=== PATIENT | female | born 1945 | race Caucasian/White ===

== ENCOUNTER 2023-01-04 19:45 | Inpatient (IN) | payer MEDICARE, OTHER, SELFPAY ==
[2023-01-04 19:45] VITALS: BP 171/67; PULSE 73; RESP 16; TEMP 36.6; O2SAT 97; BMI 21.9
--- NOTE | 2023-01-04 19:56 | XRR_ITS ---
PROCEDURE INFORMATION: Exam: XR Chest Exam date and time: 01/04/2023 8:05 PM Age: 77 years old Clinical indication: Injury or trauma; Fall; Blunt trauma (contusions or hematomas); Additional info: Syncope TECHNIQUE: Imaging protocol: Radiologic exam of the chest. Views: 1 view. COMPARISON: No relevant prior studies available. FINDINGS: Lungs: There is linear scarring or atelectasis at the left lung base. The lungs are otherwise clear. Pleural spaces: Unremarkable. No pleural effusion. No pneumothorax. Heart/Mediastinum: Unremarkable. No cardiomegaly. Bones/joints: Unremarkable. XR/XR chest 1V portable [id number] IMPRESSION: No acute injury.
--- NOTE | 2023-01-04 19:56 | CTR_ITS ---
PROCEDURE INFORMATION: Exam: CT Cervical Spine Without Contrast Exam date and time: 01/04/2023 8:14 PM Age: 77 years old Clinical indication: Injury or trauma; Fall; Blunt trauma; Additional info: Fall head inj TECHNIQUE: Imaging protocol: Computed tomography of the cervical spine without contrast. Radiation optimization: All CT scans at this facility use at least one of these dose optimization techniques: automated exposure control; mA and/or kV adjustment per patient size (includes targeted exams where dose is matched to clinical indication); or iterative reconstruction. REPORTING DATA: Count of CT and Cardiac NM exams in prior 12 months: This patient has received [address] and 0 known cardiac nuclear medicine studies in the 12 months prior to the current study. COMPARISON: CR (CHEST, ) 01/04/2023 8:05 PM RADIATION DOSE METRICS: Total DLP (mGy-cm): 175.3 FINDINGS: Bones/joints: No acute fracture. Normal alignment. There are mild degenerative changes present. There is a central disc bulge at C4-C5 which contacts the ventral cord and causes mild spinal canal narrowing. Lungs: Lung apices are normal. Soft tissues: Unremarkable. CT/CT cervical spin wo con* [id number] IMPRESSION: No acute injury.
--- NOTE | 2023-01-04 19:57 | CTR_ITS ---
PROCEDURE INFORMATION: Exam: CT Head Without Contrast Exam date and time: 01/04/2023 8:14 PM Age: 77 years old Clinical indication: Injury or trauma; Fall; Blunt trauma (contusions or hematomas); Additional info: Head injury TECHNIQUE: Imaging protocol: Computed tomography of the head without contrast. Radiation optimization: All CT scans at this facility use at least one of these dose optimization techniques: automated exposure control; mA and/or kV adjustment per patient size (includes targeted exams where dose is matched to clinical indication); or iterative reconstruction. REPORTING DATA: Count of CT and Cardiac NM exams in prior 12 months: This patient has received [address] and 0 known cardiac nuclear medicine studies in the 12 months prior to the current study. COMPARISON: No relevant prior studies available. RADIATION DOSE METRICS: Total DLP (mGy-cm): 1164.9 FINDINGS: Brain: Age appropriate atrophy and small vessel ischemic change. No evidence of intracranial hemorrhage, mass effect, midline shift or extra-axial fluid collections. Midline structures are normal. Hawk-white matter differentiation is normal. Cerebral ventricles: No ventriculomegaly. Paranasal sinuses: Visualized sinuses are unremarkable. No fluid levels. Mastoid air cells: Visualized mastoid air cells are well aerated. Bones/joints: Unremarkable. No acute fracture. Soft tissues: There is right frontal scalp swelling. Vasculature: Carotid atherosclerotic calcification. CT/CT head wo con* [id number] IMPRESSION: No acute intracranial injury.
[2023-01-04 19:58] VITALS: BP 171/67; PULSE 68; O2SAT 98
--- NOTE | 2023-01-04 20:07 | ECG_ITS ---
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 Measurements Intervals [place] Rate: 73 P: 74 ME: 187 QRS: -31 QRSD: 92 T: -23 QT: 407 QTc: 450 Interpretive Statements SINUS RHYTHM LEFT AXIS DEVIATION [QRS AXIS < -30] LEFT VENTRICULAR HYPERTROPHY AND ST-T CHANGE [VOLTAGE CRITERIA PLUS ST/T ABNORMALITY] No previous ECG available for comparison Electronically Signed On 01-04-2023 22:35:20 CDT by David Sheppard M.D. [email or web address]el[email or web address].[employer]/store/[id number]
[2023-01-04 20:14] LABS: Basophils % 0.4 %; Eosinophils # 0.2 10^3/uL (0.0-0.8); Eosinophils % 1.7 %; Hemoglobin 15.5 g/dL (11.5-15.3); Lymphocytes # 3.2 10^3/uL (0.8-4.8); Lymphocytes % 35.9 %; Mean Corpuscular Hemoglobin 31.2 pg (28.0-34.0); Mean Corpuscular Volume 94.6 fl (81-99); Mean Platelet Volume 12.7 fL (7.4-10.4); Monocytes # 0.6 10^3/uL (0.2-0.9); Monocytes % 6.9 %; Neutrophils # 4.85 10^3/uL (1.8-7.7); Neutrophils % 54.3 %; Nucleated Red Blood Cells % 0 %; Platelet Count 179 10^3/cmm (130-400); Red Blood Count 4.97 10^6/uL (4.1-5.3); Red Cell Distribution Width 12.7 % (12.1-15.1); White Blood Count 8.9 10^3/uL (4.0-10.0)
--- NOTE | 2023-01-04 20:14 | ED_ITS ---
HPI - Fall General: Chief Complaint: Fall Stated Complaint: fall Time Seen by Provider: 01/04/23 19:45 Source: patient History of Present Illness: 77-year-old female evidently with a history of seizure disorder. She has not had a seizure in 9 years though. 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 The fall was not seen, but family member was right there and heard her hit the ground. She found her face down. Evidently she was unresponsive for around 5 minutes but breathing. She lost control of her bladder during the episode. No tonic-clonic movement was noted. She was mildly confused upon awakening, and is now back to baseline essentially. She is not complaining of significant pain no other injury MD complaint: fall Onset (ago): minute(s) Fall from: standing Fall witnessed: no Place fall occurred: other Loss of consciousness: Yes Length of LOC: minutes(s) (5) Prolonged down time: no Symptoms prior to fall: none Context: other Location of injury: head Associated symptoms-after fall: Reports headache(s) (Mild); Denies abdominal pain, chest pain, confusion, difficulty walking, neck pain, numbness, short of breath, vertigo or weakness Review of Systems Const: Denies: fever(s) Eyes: Denies: change in vision ENMT: Denies: throat pain or sinus pain Card: Denies: chest pain Resp: Denies: dyspnea GI: Denies: abdominal pain Musc: Denies: neck pain Neuro: Reports: headache(s) (Mild); Denies: difficulty walking, vertigo or confusion PFS ED PFSH: Medical History Family history of familial adenomatous polyposis 2 para 2 History of epilepsy history of grand mal seizures, last ~2014, not on chronic medication Hypertension Surgical History History of colectomy subtotal colectomy with ileorectal anastomosis performed by Dr Chaney in 1992 due to family history of familial adenomatous polyposis Family History Father CAD (coronary artery disease) age 50 from heart attack Other Familial adenomatous polyposis Social History (Reviewed 01/05/23 @ 16:39 by Katelynn Pruett Smoking and tobacco status: never smoked Alcohol intake: never Household members: family Physical Exam Const: COMMON NORMALS: no acute distress GENERAL APPEARANCE: cooperative and frail appearing (Mildly) HENMT: COMMON NORMALS: normocephalic HEAD & SCALP: normocephalic FACE & SINUS: abrasion (Skin avulsion to forehead. Abrasions to nose.) NOSE: Abnormal external nose present nasal ecchymosis and nasal erythema Eye: COMMON NORMALS: Equal, round and reactive pupils present and EOMs intact bilaterally PUPIL: Yes Equal, round and reactive pupils present Neck/C-Spine: GENERAL: Yes trachea midline Chest: CHEST: Yes Symmetrical chest wall rise Resp: COMMON NORMALS: normal respiratory effort, No use of accessory muscles and clear to auscultation bilaterally AUSCULTATION: clear to auscultation bilaterally Cardio: COMMON NORMALS: regular rate and regular rhythm RATE: regular rate RHYTHM: regular rhythm GI: COMMON NORMALS: Normal to inspection, nondistended, normoactive bowel sounds present, Soft to palpation and non-tender PALPATION: Yes Soft to palpation Back/Pelvis: THORACIC SPINE/UPPER BACK: No thoracic spinal tenderness LUMBAR SPINE/LOWER BACK: No lumbar spinal tenderness Extremity: NARRATIVE EXTREMITY EXAM: Atraumatic Neuro: MICHELINE COMA SCALE: document GCS findings Micheline coma scale eye opening: Spontaneous [place] coma scale verbal response: Orientated [place] coma scale motor response: Obey commands [place] coma scale total score: 15 SENSORY EXAM: Yes extremities (Intact) Course Vital Signs: Vital signs: Vital Signs Temperature 97.6 F 01/06/23 01:04 Pulse Rate 53 L 01/06/23 08:00 Respiratory Rate 22 H 01/06/23 08:00 Blood Pressure 146/89 01/06/23 08:00 Pulse Oximetry 99 01/06/23 08:00 Oxygen Delivery Me thod 01/06/23 08:00 MDM - Fall Medical Decision Making 77 year old female with a history of syncope today. She does have a history of seizure disorder, but no seizure activity was witnessed. Her vitals have been stable. she's at her baseline mental status. CBC not remarkable. BMP not remarkable. Liver enzymes are normal. EKG shows a sinus rhythm without acute St. change. However, her delta troponin is 46 at 2 hours, which is significant. Differential includes ischemia versus arrhythmia causing the troponin rise. She'll be observed. Had CT is negative. Chest X-ray is also negative for acute problems. Lab Data 01/04/23 19:30 01/04/23 19:30 Radiology Impressions Cervical Spine CT 01/04/23 19:56 IMPRESSION: No acute injury. Chest X-Ray 01/04/23 19:56 IMPRESSION: No acute injury. Head CT 01/04/23 19:57 IMPRESSION: No acute intracranial injury. Knee X-Ray 01/05/23 08:07 IMPRESSION: 1. Chondrocalcinosis of the medial and lateral menisci. 2. No fracture, joint effusion or other significant finding. Laboratory Results WBC 8.9 10^3/uL (4.0-10.0) 01/04/23 19:30 RBC 4.97 10^6/uL (4.1-5.3) 01/04/23 19:30 Hgb 15.5 g/dL (11.5-15.3) H 01/04/23 19:30 Hct 47.0 % (37.0-47.0) 01/04/23 19:30 MCV 94.6 fl (81-99) 01/04/23 19:30 MCH 31.2 pg (28.0-34.0) 01/04/23 19:30 MCHC 33.0 g/dL (30.0-36.0) 01/04/23 19:30 RDW 12.7 % (12.1-15.1) 01/04/23 19:30 Plt Count 179 10^3/cmm (130-400) 01/04/23 19:30 MPV 12.7 fL (7.4-10.4) H 01/04/23 19:30 Neut % (Auto) 54.3 % 01/04/23 19:30 Lymph % (Auto) 35.9 % 01/04/23 19:30 [place] % (Auto) 6.9 % 01/04/23 19:30 Eos % (Auto) 1.7 % 01/04/23 19:30 Baso % (Auto) 0.4 % 01/04/23 19:30 Neut # (Auto) 4.85 10^3/uL (1.8-7.7) 01/04/23 19:30 Lymph # (Auto) 3.2 10^3/uL (0.8-4.8) 01/04/23 19:30 [place] # (Auto) 0.6 10^3/uL (0.2-0.9) 01/04/23 19:30 Eos # (Auto) 0.2 10^3/uL (0.0-0.8) 01/04/23 19:30 Baso # (Auto) 0.0 10^3/uL (0.0-0.1) 01/04/23 19:30 Nucleated RBC % (auto) 0 % 01/04/23 19:30 Nucleated RBCs # 0.0 /100WBC 01/04/23 19:30 Sodium 134 mmol/L (136-145) L 01/04/23 19:30 Potassium 3.4 mmol/L (3.5-5.1) L 01/04/23 19:30 Chloride 95 mmol/L (98-107) L 01/04/23 19:30 Carbon Dioxide 16 mmol/L (22-29) L 01/04/23 19:30 Anion Gap 26.4 (5-19) H 01/04/23 19:30 BUN 13 mg/dL (8-23) 01/04/23 19:30 Creatinine 0.9 mg/dL (0.5-0.9) 01/04/23 19:30 GFR Calculation Not Reportable 01/04/23 19:30 Glucose 112 mg/dL (65-115) 01/04/23 19:30 Calculated Osmolality 279 mOsm/kg (285-295) L 01/04/23 19:30 Calcium 8.7 mg/dL (8.5-10.5) 01/04/23 19:30 Phosphorus 2.7 mg/dL (2.5-4.5) 01/04/23 19:30 Magnesium 2.1 mg/dL (1.7-2.3) 01/04/23 19:30 Total Bilirubin 0.6 mg/dL (0.15-1.2) 01/04/23 19:30 AST 19 U/L (0-32) 01/04/23 19:30 ALT 11 U/L (0-33) 01/04/23 19:30 Alkaline Phosphatase 88 U/L (35-105) 01/04/23 19:30 Creatine Kinase 130 U/L (26-192) 01/04/23 19:30 Creatine Kinase 133 U/L (26-192) 01/04/23 19:30 Troponin T Baseline 65 ng/L (0-10) H 01/04/23 19:30 Troponin T 120 Minute 111.4 ng/L (0-10) H 01/04/23 21:14 Delta Troponin T 46.4 ABS# (0-10) H* 01/04/23 21:14 Total Protein 7.1 g/dL (6.6-8.7) 01/04/23 19:30 Albumin 4.3 g/dL (3.5-5.2) 01/04/23 19:30 Globulin 2.8 g/dL (1.3-4.6) 01/04/23 19:30 Procalcitonin 0.05 ng/mL (0-0.5) 01/04/23 19:30 Discharge Plan Discharge Patient Disposition: Admitted As Inpatient Admit Provider: Tammie Cuba Clinical Impression: Syncope, NSTEMI (non-ST elevated myocardial infarction) Condition: Stable Discharge Diet: Low Salt Discharge Activity: Increase activity as tolerated Coding Level of Care Code ED Document Management Analyst for Fortino Sauer
[2023-01-04 20:24] LABS: Troponin(5th) Baseline 65 ng/L (0-10)
[2023-01-04 20:25] LABS: Alanine Aminotransferase 11 U/L (0-33); Albumin Level 4.3 g/dL (3.5-5.2); Alkaline Phosphatase 88 U/L (35-105); Blood Urea Nitrogen 13 mg/dL (8-23); Calcium 8.7 mg/dL (8.5-10.5); Carbon Dioxide 16 mmol/L (22-29); Chloride 95 mmol/L (98-107); Creatine Phosphokinase 130 U/L (26-192); Globulin 2.8 g/dL (1.3-4.6); Glucose 112 mg/dL (65-115); Magnesium 2.1 mg/dL (1.7-2.3); Osmolality Calculated 279 mOsm/kg (285-295); Phosphorus 2.7 mg/dL (2.5-4.5); Sodium 134 mmol/L (136-145); Total Bilirubin 0.6 mg/dL (0.15-1.2); Total Protein 7.1 g/dL (6.6-8.7)
[2023-01-04 20:37] LABS: Anion Gap 26.4 (5-19); Aspartate Amino Transferase 19 U/L (0-32); Potassium 3.4 mmol/L (3.5-5.1)
[2023-01-04] MEDS: tetanus-diphtheria tox (adult) 0.5 mL SDV IM (21:04)
[2023-01-04 21:57] LABS: Troponin 5 2HR 111.4 ng/L (0-10); Troponin 5 2HR Delta 46.4 ABS# (0-10)
--- NOTE | 2023-01-04 21:59 | ECG_ITS ---
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 Measurements Intervals [place] Rate: 68 P: 61 UT: 182 QRS: -24 QRSD: 94 T: 10 QT: 413 QTc: 441 Interpretive Statements SINUS RHYTHM BORDERLINE LEFT AXIS DEVIATION [QRS AXIS < -20] LEFT VENTRICULAR HYPERTROPHY AND ST-T CHANGE [VOLTAGE CRITERIA PLUS ST/T ABNORMALITY] Compared to ECG 01/04/2023 20:07:39 No significant changes Electronically Signed On 01-04-2023 22:36:42 CDT by David Sheppard M.D. [email or web address].[email or web address] [facility]oxub[facility] hospitalAust[facility]In[facility].[employer]/store/OM/[id number]
[2023-01-04 22:00] VITALS: BP 159/71; PULSE 61; O2SAT 98
[2023-01-04] MEDS: enoxaparin 60 mg/0.6 mL Syringe 50 MG SUBCUT (23:03)
[2023-01-04] MEDS: clopidogrel 300 mg Tablet PO (23:03)
[2023-01-04] MEDS: aspirin 325 mg Tablet PO (23:03)
[2023-01-04 23:30] VITALS: BP 162/81; PULSE 63; O2SAT 98
--- NOTE | 2023-01-04 23:33 | PM.HP ---
Providers/Chief Complaint Admitting Physician: Tammie Cuba MD Primary Care Provider: Aleah Rivera Chief Complaint: fall History of Present Illness Ester Beasley is a 77 year old female who presented to the emergency room with chief complaint of falling down. [place] care of things. They were going back to the truck, with patient's daughter walking in front of her, when Ester's daughter heard her say Ow . The daughter turned around and noted Ester was face down on the ground and unconscious. She was breathing on her own and had a pulse. They do describe some transient prominent breathing where she was taking big deep breaths. The daughter reached out for help. Mrs. Posada remained unconscious for approximately 5 minutes. She was briefly confused as she was coming around. She did have loss of bladder function. No abnormal movements were noted with the exception of her eyes being rolled up a little bit after she was turned over. She did not bite her tongue and had no foaming at the mouth. Mrs. Posada herself does not recall the immediate events nor what she did this afternoon. She was brought in by EMS. On arrival blood pressure 171/67, HR 73 and stats 97%. She had no complaints even though she had bruising to her face. CT of the head and cervical spine were unremarkable. Initial EKG showed sinus rhythm at [address] segment changes and left ventricular hypertrophy. Initial troponin was 65 with 2-hour troponin at 111 resulting in a delta troponin of 46. She has no personal history of coronary artery disease though has been diagnosed with hypertension in the past. She has not taken her blood pressure medicine for a couple of years. She does not check her blood pressure regularly. While she herself denies any episodes of chest pain. The family has noted that she had an episode about 6 to 8 weeks ago in which she was upset about something and acutely had significant increase in work of breathing and was very pale. They wanted her to come into the emergency room but she refused. Their thought was that her blood pressure may be too high at that time but she would not let anybody check it. They have also noted that she has increasing shortness of breath with exertion particularly when going up 1 flight of steps. She has to stop a couple of times and this has been progressively worsening over the last few months. 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 Again she denies any episodes of chest discomfort. It should be noted that she has a remote history of generalized tonic-clonic seizures with the last occurring sometime between 7 to 9 years ago. She is not on any medications for this. No known history of absent seizures. No known history of arrhythmias. She previously saw Dr. Villarreal for primary care and has not been to a primary care provider since he changed positions. No arrhythmias have been noted in the emergency room. She is being admitted for further evaluation and treatment. Review of Systems General: Reports: Other (ROS as per HPI or as otherwise noted here) Const: Denies: fever(s) or change in weight Eyes: Denies: change in vision ENMT: Denies: throat pain or nasal congestion Card: Reports: syncope and dyspnea on exertion; Denies: chest pain, palpitations or edema Resp: Denies: productive cough or non-productive cough GI: Denies: abdominal pain, nausea, vomiting, diarrhea or constipation : Denies: difficulty voiding Musc: Reports: back pain (Back goes out sometimes; sleeps in recliner due to back issues); Denies: extremity pain Skin/Breast: Reports: lesions and dry skin Neuro: Denies: headache(s), numbness in extremities, weakness in extremities, frequent falls, dizziness, Slurred speech present, seizure-like activity or involuntary movements Psych: Reports: memory loss (short term memory loss) Roddy/Lymph: Denies: easy bruising or easy bleeding Medications/Allergies Home Medications Medication Instructions Recorded Confirmed Last Taken Type No Known Home Medications 01/04/23 01/04/23 Unknown History Allergies Allergy/AdvReac Type Severity Reaction Status Date / Time egg Allergy Unknown Verified 01/05/23 00:30 Additional Medication Information Has been prescribed antihypertensive medication in the past but has not taken for couple of years PFSH Acute PFSH: Medical History (Updated 01/05/23 @ 00:21 by Tammie Cuba MD) Family history of familial adenomatous polyposis 2 para 2 History of epilepsy history of grand mal seizures, last ~2014, not on chronic medication Hypertension Surgical History (Updated 01/05/23 @ 00:21 by Tammie Cuba MD) History of colectomy subtotal colectomy with ileorectal anastomosis performed by Dr Chaney in 1992 due to family history of familial adenomatous polyposis Family History (Updated 01/05/23 @ 00:24 by Tammie Cuba MD) Father CAD (coronary artery disease) age 50 from heart attack Other Familial adenomatous polyposis Social History (Updated 01/05/23 @ 00:25 by Tammie Cuba MD) Smoking and tobacco status: never smoked Alcohol intake: never Substance/Drug Use: never Household members: family Vitals/I&O/Wt Last Vital Signs Temp 97.9 F 01/04/23 19:45 Pulse 68 01/04/23 19:58 Resp 16 01/04/23 19:45 BP 171/67 01/04/23 19:58 Pulse Ox 98 01/04/23 19:58 O2 Del Method 01/04/23 19:58 Weight last 48 hrs Weight 54.431 kg Physical Exam Narrative: Awake and alert, bruising noted to the face involving the forehead more on the right side than the left, extending on the right side of the face involving the nose and the right cheek. There are skin tears covered with dressings to the bridge of the nose, just to the left of midline of the forehead and on the right lateral side of the forehead. Right eye has scleral injection, left is clear. Extraocular movements are intact. Pupils are equally reactive. Does not have significant facial edema at this time and face is predominantly red. No blood in the nares. Oropharynx with moist mucous membranes, edentulous, otherwise clear. Neck is supple without lymphadenopathy or JVD. Lungs are clear to auscultation bilaterally without any rales rhonchi or wheezes noted. Cardiovascular exam reveals a regular rate and rhythm. Faint murmur is noted at the left upper sternal border without radiation. No gallops or rubs. Abdomen is soft, nontender with positive bowel sounds. Extremities no pitting edema, no calf tenderness. Pulses are equal x4. Patient has changes of chronic sun exposure noted including a large nevus on the left neck. Speech is clear. Facial movements are symmetric. Handgrip is equal. Data 01/04/23 19:30 01/04/23 19:30 Other Labs: Radiology Impressions Cervical Spine CT 01/04/23 19:56 IMPRESSION: No acute injury. Chest X-Ray 01/04/23 19:56 IMPRESSION: No acute injury. No cardiomegaly Scarring or atelectasis at left base, otherwise lungs are clear Head CT 01/04/23 19:57 IMPRESSION: No acute intracranial injury. No hemorrhage Age appropriate atrophy and small vessel ischemic changes Laboratory Results WBC 8.9 10^3/uL (4.0-10.0) 01/04/23 19:30 RBC 4.97 10^6/uL (4.1-5.3) 01/04/23 19: Hgb 15.5 g/dL (11.5-15.3) H 01/04/23 19:30 Hct 47.0 % (37.0-47.0) 01/04/23 19: MCV 94.6 fl (81-99) 01/04/23: MCH 31.2 pg (28.0-34.0) 01/04/23 19: MCHC 33.0 g/dL (30.0-36.0) 01/04/23 19: RDW 12.7 % (12.1-15.1) 01/04/23: Plt Count 179 10^3/cmm (130-400) 01/04/23 19: MPV 12.7 fL (7.4-10.4) H 01/04/23 19: Neut % (Auto) 54.3 % 01/04/23 19: Lymph % (Auto) 35.9 % 01/04/23 19:30 [place] % (Auto) 6.9 % 01/04/23 19: Eos % (Auto) 1.7 % 01/04/23: Baso % (Auto) 0.4 % 01/04/23: Neut # (Auto) 4.85 10^3/uL (1.8-7.7) 01/04/23 19: Lymph # (Auto) 3.2 10^3/uL (0.8-4.8) 01/04/23: [place] # (Auto) 0.6 10^3/uL (0.2-0.9) 01/04/23 19:30 Eos # (Auto) 0.2 10^3/uL (0.0-0.8) 01/04/23 19: Baso # (Auto) 0.0 10^3/uL (0.0-0.1) 01/04/23 19:30 Nucleated RBC % (auto) 0 % 01/04/23 19:30 Nucleated RBCs # 0.0 /100WBC 01/04/23 19:30 Sodium 134 mmol/L (136-145) L 01/04/23 19:30 Potassium 3.4 mmol/L (3.5-5.1) L 01/04/23 19:30 Chloride 95 mmol/L (98-107) L 01/04/23 19:30 Carbon Dioxide 16 mmol/L (22-29) L 01/04/23 19:30 Anion Gap 26.4 (5-19) H 01/04/23 19:30 BUN 13 mg/dL (8-23) 01/04/23 19:30 Creatinine 0.9 mg/dL (0.5-0.9) 01/04/23 19:30 GFR Calculation Not Reportable 01/04/23 19: Glucose 112 mg/dL (65-115) 01/04/23 19:30 Calculated Osmolality 279 mOsm/kg (285-295) L 01/04/23 19:30 Calcium 8.7 mg/dL (8.5-10.5) 01/04/23 19:30 Phosphorus 2.7 mg/dL (2.5-4.5) 01/04/23 19:30 Magnesium 2.1 mg/dL (1.7-2.3) 01/04/23 19:30 Total Bilirubin 0.6 mg/dL (0.15-1.2) 01/04/23 19:30 AST 19 U/L (0-32) 01/04/23 19:30 ALT 11 U/L (0-33) 01/04/23 19:30 Alkaline Phosphatase 88 U/L (35-105) 01/04/23 19:30 Creatine Kinase 130 U/L (26-192) 01/04/23 19:30 Troponin T Baseline 65 ng/L (0-10) H 01/04/23 19:30 Troponin T 120 Minute 111.4 ng/L (0-10) H 01/04/23 21:14 Delta Troponin T 46.4 ABS# (0-10) H* 01/04/23 21:14 Total Protein 7.1 g/dL (6.6-8.7) 01/04/23 19:30 Albumin 4.3 g/dL (3.5-5.2) 01/04/23 19:30 Globulin 2.8 g/dL (1.3-4.6) 01/04/23 19:30 A&P Assessment and plan (1) Syncope: With loss of consciousness for approximately 5 minutes. Differential diagnosis includes seizure which patient is known to have a history of although outward symptoms were not her usual presentation. Her last seizure was 7 to 9 years ago and she usually has headaches after seizures which is not present currently. Also to be considered our arrhythmia, other cardiovascular process, acute PAI GOW DEALER event beyond a seizure which seems less likely. Hypertensive emergency also within the realm of possibility. No report of her having tripped over anything or other mechanical type of fall. (2) NSTEMI (non-ST elevated myocardial infarction): With primary risk factor being hypertension that is not adequately controlled and a family history of her father having heart disease that he from at the age of 50. Does not have a personal history of coronary artery disease. Does describe progressively worsening dyspnea on exertion in particular along with an acute concerning event 6 to 8 weeks ago that could be an anginal equivalent. (3) Facial contusion: Secondary to fall secondary to fall and syncope. CT of the head and cervical spine without any acute abnormalities. At risk for concussive syndrome. (4) Hypertension: Essential hypertension not currently controlled due to not taking any medications (5) Short-term memory loss: By history, without a diagnosis of dementia Plan Inpatient admission Continue serial cardiac enzymes Depending on 6-hour troponin delta, and any symptoms tonight, will decide between stress testing or consideration for more invasive cardiac evaluation Echocardiogram in the morning For now we will continue aspirin, Plavix, statin and Lovenox Holding on beta-blockade in the event that stress testing is appropriate neck step Reviewed with patient and family risk of bleeding with full anticoagulation after the fall with facial contusions this evening. Risk of further adverse event from suboptimally treated cardiovascular disease currently outweighs risk of bleeding which we may be able to control, and will monitor for. Patient, daughter and son-in-law were given an opportunity to ask questions and agreed with plan of care. Monitor blood pressures currently before initiating antihypertensive medication Daughter to bring in if she can find it the previous antihypertensive Mrs. Posada has been prescribed Serial neuro exams for at least 24 hours Recheck electrolytes in the morning, along with A1c and lipid panel, TSH Follow-up pending urinalysis Supportive care otherwise Findings, concerns and plans were discussed with patient and her family. Made it clear that in this situation we need to discern if there is a primary cardiac etiology or if something else happened that put strain on the heart. Treatment at this point in time is focused on covering for cardiovascular etiology of events as the most potentially concerning at this time. Everyone was given an opportunity to ask questions about plans of care. Anticipate discharge home with outpatient follow-up with Aleah Rivera at [facility] plus or minus cardiology depending on clinical course. Patient will need encouragement to take any medications that are prescribed and to follow medical recommendations. May benefit from neurology referral at discharge if further evaluation tends to point away from primary cardiac etiology which is suspected presently. Full code Attestations Medical Necessity Statement*: Anticipated stay greater than two midnights in the 70s and rare exposure to healthcare presenting after a syncopal episode with loss of consciousness for more than 5 minutes. She currently has evidence of a non-ST elevation MA. She requires continued evaluation and work-up of cardiac or other source of her presentation, monitoring especially while on anticoagulation and other care as described. Without appropriate monitoring and evaluation, treatment at risk of recurrent life-threatening event in this relatively active 77-year-old. and Moderate Time for a total of 70 minutes, includes reviewing past or interval history, examining/interviewing patient, placing orders, counseling patient/family/other support, discussing plan of care with staff and documenting encounter Other Coding Information Prolonged care (total time indicated above or notated here) Diagnoses Syncope R55 NSTEMI (non-ST elevated myocardial infarction) I21.4 Facial contusion S00.83XA Hypertension I10 Short-term memory loss R41.3
[2023-01-04 23:52] LABS: Creatine Phosphokinase 133 U/L (26-192)
[2023-01-05] VITALS (12 sets, daily range): BP systolic 131–164; BP diastolic 54–87; PULSE 44–66; RESP 14–23; TEMP 36.4–37.2; O2SAT 95–100
[2023-01-05] LABS: Procalcitonin 0.05 ng/mL (0-0.5)
[2023-01-05] MEDS: D5-NS 0.45% + KCL 20 mEq 20 MEQ/1,000 ML BAG 75 MEQ IV (01:06)
--- NOTE | 2023-01-05 01:59 | ECG_ITS ---
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 Measurements Intervals [place] Rate: 54 P: 56 LA: 181 QRS: -19 QRSD: 92 T: -12 QT: 409 QTc: 388 Interpretive Statements SINUS BRADYCARDIA LEFT VENTRICULAR HYPERTROPHY AND ST-T CHANGE [VOLTAGE CRITERIA PLUS ST/T ABNORMALITY] Compared to ECG 01/04/2023 22:21:53 Sinus rhythm no longer present ST (T wave) deviation still present Electronically Signed On 01-05-2023 11:32:22 CDT by David Sheppard M.D. [email or web address]
[2023-01-05 02:20] LABS: Basophils % 0.3 %; Eosinophils % 0.1 %; Hematocrit 42.8 % (37.0-47.0); Hemoglobin 14.4 g/dL (11.5-15.3); Lymphocytes % 11.4 %; Mean Corpuscular HGB Conc 33.6 g/dL (30.0-36.0); Mean Corpuscular Hemoglobin 31.4 pg (28.0-34.0); Mean Corpuscular Volume 93.2 fl (81-99); Mean Platelet Volume 11.4 fL (7.4-10.4); Monocytes # 0.6 10^3/uL (0.2-0.9); Monocytes % 6.1 %; Neutrophils # 7.48 10^3/uL (1.8-7.7); Neutrophils % 81.7 %; Nucleated Red Blood Cells % 0 %; Platelet Count 244 10^3/cmm (130-400); Red Blood Count 4.59 10^6/uL (4.1-5.3); Red Cell Distribution Width 12.4 % (12.1-15.1); White Blood Count 9.2 10^3/uL (4.0-10.0)
[2023-01-05 02:41] LABS: Chol HDL Ratio 3.17 mg/dL (0.0-4.40); Cholesterol 152 mg/dL (0-200); HDL Cholesterol 48 mg/dL (60-100); LDL Cholesterol Calculated 90 mg/dL (50-129); LDL HDL Ratio 1.88 RATIO (0.00-3.22); Triglycerides 68 mg/dL (0-150)
[2023-01-05 02:48] LABS: INR 1.09 (0.8-1.2)
[2023-01-05 02:49] LABS: Blood Urea Nitrogen 11 mg/dL (8-23); Calcium 8.7 mg/dL (8.5-10.5); Carbon Dioxide 23 mmol/L (22-29); Chloride 102 mmol/L (98-107); Glucose 111 mg/dL (65-115); Magnesium 2.1 mg/dL (1.7-2.3); Osmolality Calculated 280 mOsm/kg (285-295); Phosphorus 3.1 mg/dL (2.5-4.5); Sodium 135 mmol/L (136-145); Thyroid Stimulating Hormone 3.65 uIU/mL (0.27-4.20)
[2023-01-05 03:03] LABS: Estmated Average Glucose 111; Hemoglobin A1C 5.5 % (4.0-6.0)
[2023-01-05 03:16] LABS: Anion Gap 13.8 (5-19); Potassium 3.8 mmol/L (3.5-5.1)
[2023-01-05 03:26] LABS: Add Urine Microscopic? YES; Bilirubin Urine Neg (Negative); Blood Urine 2+ (Negative); Glucose Urine UA Norm (Normal); Ketones Urine 1+ (Negative); Leukocyte Esterase Urine Negative (Negative); Nitrate Urine Negative (Negative); Protein Urine Neg (Negative); Urine Appearance Clear (CLEAR); Urine Color Yellow (Yellow); Urobilinogen Urine Neg (Negative); pH Urine 5 (5-7)
[2023-01-05 04:23] LABS: Bacteria Urine TRACE /hpf; Mucus Urine 1+ /hpf; Squamous Epithelial Cell Urine 0-4 /hpf (0-5); WBC Urine 0-4 /hpf (0-5)
[2023-01-05 04:24] LABS: Add Urine Culture? No; Amorphous Sediment Urine 1+ /hpf
--- NOTE | 2023-01-05 06:00 | USCV_ITS ---
Ester Beasley Age: 77 Gender: F : 1945 Exam Date: 01/05/2023 08:24 Ordering Phys: Tammie Cuba MD Technologist: Yosef Diego Exam Location: [facility] [place] Indication: nstemi BP: / HR: 48 Rhythm: Sinus Technical Quality: MEASUREMENTS (Male / Female) Normal Values 2D ECHO LV Diastolic Diameter PLAX 3.2 cm 4.2 - 5.9 / 3.9 - 5.3 cm LV Systolic Diameter PLAX 1.9 cm IVS Diastolic Thickness 1.1 cm 0.6 - 1.0 / 0.6 - 0.9 cm IVS Systolic Thickness 1.2 cm LVPW Diastolic Thickness 1.0 cm 0.6 - 1.0 / 0.6 - 0.9 cm LVPW Systolic Thickness 1.3 cm LVOT Diameter 2.0 cm LV Ejection Fraction 2D Teich 71.7 % LV Ejection Fraction MOD 2C 80.2 % LV Ejection Fraction 2C AL 80.6 % LA Diameter 3.3 cm M-MODE Aortic Annulus Diameter 3.0 cm LA Ao Ratio MM 1.1 MV E Point Septal Separation 0.9 cm DOPPLER AV Peak Velocity 158.0 cm/s LVOT Peak Velocity 88.0 cm/s AV Area Cont Eq vti 2.1 cm squared AV Area Cont Eq pk 1.8 cm squared MV Area PHT 5.0 cm squared Mitral E to A Ratio 1.0 MV E' Velocity 94.0 cm/s Mitral E to LV E' Septal Ratio 8.9 TR Peak Velocity 214.7 cm/s TR Peak Gradient 18.4 mmHg TV Peak E Velocity 114.0 cm/s PV Peak Velocity 64.0 cm/s RV Acceleration Time 0.1 s FINDINGS Left Ventricle Left ventricle is normal in size. LV systolic function is normal with EF of 55-60%. No regional wall motion abnormalities are seen. Right Ventricle Normal in size and function Right Atrium Normal in size Left Atrium Normal in size Mitral Valve Structurally normal mitral valve. No significant stenosis or regurgitation. Aortic Valve Structurally normal aortic valve. No significant stenosis or regurgitation. Tricuspid Valve Trace tricuspid regurgitation. Pulmonary artery systolic pressure is normal Pulmonic Valve Not well visualized. Pericardium Normal Aorta Normal in size IVC Not well visualized CONCLUSIONS LV systolic function is normal with EF of 55-60% Trace tricuspid regurgitation No comparison studies are available David Sheppard MD (Electronically Signed) Final Date: 05 January 2023 11:02 S
--- NOTE | 2023-01-05 08:07 | XR_ITS ---
WS: [id number] Exam: XR knee LT 1-2V [id number] Date/Time of Exam: 01/05/2023 8:07 AM Reason For Exam: pain in left knee No fracture or dislocation. The joint compartments are relatively well maintained. There is chondroca lcinosis of the medial and lateral menisci. Unremarkable soft tissues. No joint effusion. XR/XR knee LT 1-2V [id number] IMPRESSION: 1. Chondrocalcinosis of the medial and lateral menisci. 2. No fracture, joint effusion or other significant finding.
[2023-01-05] MEDS: clopidogrel 75 mg Tablet PO (08:15)
[2023-01-05] MEDS: aspirin 81 mg EC Tablet PO (08:15)
--- NOTE | 2023-01-05 09:12 | PM.CONSULT ---
Providers/Reason For Consult Consulting Physician/Specialty*: David Sheppard MD/ Cardiology Reason for Consult*: NSTEMI Requesting Physician: Dr Cuba Attending Physician: Saskia Grimaldo MD Primary Care Provider: Aleah Rivera History of Present Illness History of Present Illness Ester Beasley is a 77 year old female with past medical history of hypertension not taking any medications presented to hospital with syncope. She was walking behind her daughter and daughter states that she heard patient fall down. She was not conscious. There was no seizure-like activity. She was taking deep breaths and her eye rolled back. Patient has dyspnea on exertion. Her CT head and cervical spine were unremarkable. EKG showed sinus braycardia and non-specific ST T wave changes. Initial troponin was 65 that trended up to 130 at 6 hours. She doesnot have chest pain at this time. Review of Systems General: Reports: Other (ROS as per HPI or as otherwise noted here) Const: Denies: fever(s) or change in weight Eyes: Denies: change in vision ENMT: Denies: throat pain or nasal congestion Card: Reports: syncope and dyspnea on exertion; Denies: chest pain, palpitations or edema Resp: Denies: productive cough or non-productive cough GI: Denies: abdominal pain, nausea, vomiting, diarrhea or constipation : Denies: difficulty voiding Musc: Reports: back pain (Back goes out sometimes; sleeps in recliner due to back issues); Denies: extremity pain Skin/Breast: Reports: lesions and dry skin Neuro: Denies: headache(s), numbness in extremities, weakness in extremities, frequent falls, dizziness, Slurred speech present, seizure-like activity or involuntary movements Psych: Reports: memory loss (short term memory loss) Roddy/Lymph: Denies: easy bruising or easy bleeding Medications/Allergies Home Medications Medication Instructions Recorded Confirmed Last Taken Type No Known Home Medications 01/04/23 01/04/23 Unknown History Allergies Allergy/AdvReac Type Severity Reaction Status Date / Time egg Allergy Unknown Verified 01/05/23 00:30 Current Medications Generic Name Dose Route Start Last Admin Trade Name Freq PRN Reason Stop Dose Admin Aspirin 81 mg 01/05/23 09:00 01/05/23 08:15 Aspirin 81 Mg Ec Tablet PO 81 mg DAILY KELSIE Administration Clopidogrel Bisulfate 75 mg 01/05/23 09:00 01/05/23 08:15 Clopidogrel 75 Mg Tablet PO 75 mg DAILY KELSIE Administration Potassium Chloride/Dextrose/Sod Cl 20 meq in 1,000 mls @ 75 mls/hr 01/05/23 00:20 01/05/23 01:06 D5-Ns 0.45% + Kcl 20 Meq IV 75 mls/hr .[id number] KELSIE Administration PFSH Acute PFSH: Medical History Family history of familial adenomatous polyposis 2 para 2 History of epilepsy history of grand mal seizures, last ~2014, not on chronic medication Hypertension Surgical History History of colectomy subtotal colectomy with ileorectal anastomosis performed by Dr Chaney in 1992 due to family history of familial adenomatous polyposis Family History Father CAD (coronary artery disease) age 50 from heart attack Other Familial adenomatous polyposis Social History Smoking and tobacco status: never smoked Alcohol intake: never Substance/Drug Use: never Household members: family Vitals/I&O/Wt Last Vital Signs Temp 98.4 F 01/05/23 08:00 Pulse 54 L 01/05/23 08:00 Resp 17 01/05/23 08:00 BP 140/56 01/05/23 08:00 Pulse Ox 99 01/05/23 08:00 O2 Del Method 01/05/23 08:00 01/04/23 01/05/23 01/05/23 22:59 06:59 14:59 Intake Total 25 / 25 Output Total 400 / 400 400 / 400 Balance -400 / -400 -375 / -375 Weight last 48 hrs Weight 142 lb 1.6 oz Weight 120 lb Physical Exam Narrative: GENERAL: Patient is alert, awake and oriented x3. [] NECK: No jugular vein distension. [] HEENT: No cyanosis. No icterus. No pallor. [] HEART: Regular S1 and S2. No murmur, rub or gallop. [] LUNGS: Clear to auscultate bilaterally. [] CENTRAL NERVOUS SYSTEM: Grossly nonfocal. [] EXTREMITIES: Lower extremities with 1+ edema bilaterally. Pulses palpable in the lower extremities, both dorsalis pedis and posterior tibial. [] Data 01/05/23 01:59 01/05/23 01:59 A&P Assessment and plan (1) NSTEMI (non-ST elevated myocardial infarction): (2) Hypertension: (3) Syncope: (4) Facial contusion: Plan Patient has presented with a syncopal episode and has significant uptrend of troponins. We will proceed with coronary angiogram with possible percutaneous coronary intervention. Risks and benefits of the procedure discussed with the patient and the family. They demonstrated understanding. NPO Continue anticoagulation ECHO ordered Thank you for involving us with care of this patient. We will continue to follow. Please call with questions. Consult Attestations Medical Necessity Statement: Care expected to cross 2 midnights. Coding Level of Care Code Acute Code for [employer] [facility] Diagnoses NSTEMI (non-ST elevated myocardial infarction) I21.4 Hypertension I10 Syncope R55 Facial contusion S00.83XA
--- NOTE | 2023-01-05 10:24 | PC.CHAP ---
Pastoral Care Encounter/Spiritual Assessment Type of Contact [] Declined puzzle assembler visit [] Patient/Family/Request visit [] Outpatient visit [] Follow-up visit [] Physician referral [] Code/Alert [x] Routine visit [] Staff referral [] Actively dying [x] Patient sleeping [] Family support [] [] Out of room [] Palliative care [] [] Receiving care in room [] Pre-surgical visit [] Trauma [] Long length of stay [] ICU visit [] Other: Relational/Emotional Strength [] Patient feels connected with others/family/visitors/staff [] Distress [] Loneliness/isolation [] Abandonment Spirituality of Patient [] Person of Deonna [] Attends Tenriism of their Deonna [] Believes in Prayer [] Reads Bible or Yarsanism materials [] There are Spiritual issues to be addressed Assistant Facility Manager 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 [] Prayer [] Active listening [] Non-anxious presence [] Spiritual/emotional support [] Crisis/trauma care [] Spiritual counseling [] Bereavement support [] Provided bereavement packet [] Provided Bible/devotional materials [] Provided toy/stuffed animal, coloring book to patient or family member [] Provided Communion [] Anointing/Paradise [] Salvation [] Completed spiritual assessment [] Other: Impact on Illness or Injury [] Angry [] Fearful [] Anxious [] Often cries [] Exhaustion [] Unable to work [] Unable to attend jew [] Unable to walk/stand [] Unable to read [] Unable to drive [] Unable to eat/drink [] Unable to sleep [] Unable to be with family [] Patient intubated [] Other: Summary Time spent with patient
--- NOTE | 2023-01-05 13:02 | PM.PN ---
Subjective Subjective: Patient is n.p.o. Plan range of time at 4:30 PM Spoke with the patient and her daughter who is at the bedside Patient stated that she wanted to go home after counseling she decided to stay Bradycardia, sinus bradycardia on EKG Echo revealing 50 to 60% EF Vitals/I&O/Wt Last Vital Signs Temp 97.5 F L 01/05/23 12:00 Pulse 50 L 01/05/23 12:00 Resp 14 01/05/23 12:00 BP 158/71 01/05/23 12:00 Pulse Ox 100 01/05/23 12:00 O2 Del Method 01/05/23 12:00 01/04/23 01/05/23 01/05/23 22:59 06:59 14:59 Intake Total 25 / 25 Output Total 400 / 400 400 / 400 Balance -400 / -400 -375 / -375 Weight last 48 hrs Weight 64.455 kg Weight 54.431 kg Physical Exam Narrative: Awake and alert Pleasant cooperative male currently pleasant Awake and alert GCS 15 Bradycardia Normal blood pressure Currently on room air Daughter at the bedside Data 01/05/23 01:59 01/05/23 01:59 A&P Assessment and plan (1) Hypertension: (2) Syncope: (3) NSTEMI (non-ST elevated myocardial infarction): (4) Short-term memory loss: (5) Facial contusion: Plan NSTEMI NSTEMI Plan for angiogram 4:30 PM N.p.o. No active chest pain Currently on ACS protocol Sinus bradycardia Hold AV pat blocking agent Normal TSH Rule out coronary ischemia Syncopal event: Not sure whether this is related to ACS versus bradycardia Monitor for now Patient most likely will need Holter monitor at time of discharge Preserve ejection fraction on echo EKG showing sinus bradycardia's interpretation by myself We will order labs for tomorrow Patient and daughter counseled Patient is n.p.o. Start cardiac diet after angiogram She is full code Essential hypertension optimize with lisinopril and amlodipine for now I spoke with cardio, discussed all this morning Attestations Medical Necessity Statement*: Continue medical management Diagnoses Hypertension I10 Syncope R55 NSTEMI (non-ST elevated myocardial infarction) I21.4 Short-term memory loss R41.3 Facial contusion S00.83XA
[2023-01-05] MEDS: enoxaparin 60 mg/0.6 mL Syringe SUBCUT (13:34)
--- NOTE | 2023-01-05 13:43 | XACV_ITS ---
Exam Room: [facility] Ht: 157 cm Wt: 64 kg BSA: 1.69 m2 Gender: Female : 1945 Any Known Allergies: Eggs Exam Priority: Routine Procedure(s): Procedure Description: Diagnostic procedure Procedure Description: Left Heart Catheterization Procedure Description: Coronary Angiography Diagnostic Cath Status: Urgent Diagnostic Findings * INDICATION: NSTEMI/ Syncope. * No significant disease noted in the Left Main, Left Anterior Descending, Right, or Circumflex coronary arteries. * Coronary angiography shows right dominance. Conclusions 1. No significant disease noted in the Left Main, Left Anterior Descending, Right, or Circumflex coronary arteries. Recommendations * Aggressive risk factor modification. * Outpatient cardiology follow up in 4 weeks. Interventional RX Recommendation: medical therapy and/or counseling Diagnostic RX Recommendation: medical therapy and/or counseling Pressures Phase:Rest AO : 119 / 82 ( 101 ) @ 5:55:00 PM 163 / 74 ( 103 ) @ 5:58:00 PM 161 / 72 ( 104 ) @ 5:58:00 PM LV : 146 / -12 / 18 @ 5:58:00 PM 148 / -11 / 20 @ 5:58:00 PM Valves Phase:DefaultPhase AV : 0.0 @ 5:07:35 PM 0.0 @ 5:07:35 PM AV Mean Gradient: 0.0 @ 5:07:35 PM 0.0 @ 5:07:35 PM Clinical Evaluation EBL: 5mL-10mL Procedural Details Procedure Consent Obtained. Current Diagnosis : Chest Pain. Pre-Procedure Time Out. Identified patient by full name and date of as verbalized by the patient/guarantor. Does the consent match the physician's order: Yes. Accurate & Complete Informed Consent: Yes. Inpatient/Outpatient History & Physical on Chart: Yes. If H&P is completed, is and addenduem needed: No; If yes, is the addendum complete: N/A. Visualize and Verify Site with Patient/Guarantor: N/A. Relevant Radiology Images available: Yes. Pre-op teaching completed and patient verbalized understanding. The risks, benefits, and alternatives of sedation and/or procedure were discussed by physician. The patient agrees to continue. Procedure started. [facility] Clinical Fraility Score: 4: Vulnerable. Manager Language Indications: Suspected CAD. Chest Pain Symptom Assessment: Typical Angina Symptoms. Correct patient, site and procedure confirmed by cath team. Current diagnosis: NSTEMI. PERRLA. Strong, equal hand color strainer bilaterally. Lungs clear x 5 lobes. IV Site on Arrival: 20 gauge in the left forearm. IV Site on Arrival: 20 gauge in the right wrist. IV Fluids: 0.9% NaCl at KVO. 100 mL infused prior to equipment operator/laborer. Pre Procedural Pulses: right radial was 3+. Pre Procedural Pulses: bilateral dorsalis pedis was 2+. Oxygen started at 2liters/min via nasal canula. right groin was prepped with chloroprep then draped in the usual sterile fashion. right radial was prepped with chloroprep then draped in the usual sterile fashion. Physician notified. Baseline sample Acquired. HR: 49 BPM. Physician arrived. Physician scrubbed in. Immediate Pre-Procedure Time Out. Correct Patient: Yes; Correct Procedure: Yes; Correct Site: Yes; Correct Patient Position: Yes; Correct Supplies: Yes; Dried Flammable Prep: Yes; Blood Products Available: N/A;. Lidocaine 1% infiltrated to the right radial. Arterial access obtained. A 5 german TIG catheter in over wire. Multiple views taken of left coronary artery. Catheter redirected to the RCA. Multiple views taken of right coronary artery. EDP Sample taken: LV 146/-12,18; HR: 59 BPM; SpO2: 99%. Pullback taken: LV 148/-12,20; AO 163/74(103); Mean: 0mmHg, Peak to Peak: 0mmHg, SEP: 5sec/min; HR: 65 BPM; SpO2: 99%. Catheter out. Physician scrubbed out. Patient's family updated. A TR Band was successful obtaining hemostatsis at the Right Radial artery insertion site. Post Procedure: Pulses reassessed and unchanged. PERRLA. Strong, equal hand color strainer bilaterally. No VTE prophylaxis required. Medication's Wasted: Heparin = 1000 U. Medication's Wasted: Nitro = 49.8 mg. Medication's Wasted: Lidocaine 1% = 2 mL. Medication's Wasted: Other = vERSED 1 mg. Medication's Wasted: Other = Fentanyl 50 mcg. Total IV fluids: 25 mL. Post-op diagnosis: Non Obstructive CAD. Complications: none. Estimated blood loss: 5mL-10mL. Responsiveness - Normal response to verbal stimuli; alert and oriented, PERRLA. Airway - Unaffected, no intervention required; spontaneous ventilation. Circulation: W/N/L, pulses unchanged. Nausea/Vomiting: No. Procedure completed. Patient transferred by bed to 1st floor. Vital chart was stopped. Access Site Site: Right Radial artery Sheath Size: 6 Fr Hemostasis Method: TR Band Hemostasis Success: Successful Procedure Medications Start: 4:46 PM Stop: 4:46 PM Medication: Versed Amount: 1 mg Route: I.V. Start: 4:46 PM Stop: 4:46 PM Medication: Fentanyl Amount: 50 mcg Route: I.V. Start: 4:50 PM Stop: 4:50 PM Medication: Nitrogylcerin Amount: 200 mcg Route: I.A. I, the attending physician, have reviewed and verified all procedure medications. Yes, all medications given per verbal order History/Risk Factors Hypertension: Yes Dyslipidemia: No Peripheral Arterial Disease (PAD): No Myocardial Infarction (HI): No Obesity: No Renal Disease: No Prior 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 PCI: No CABG: No Valve Surgery: No Report Signatures Finalized by David Sheppard MD on 01/07/2023 12:40 PM
[2023-01-05] MEDS: sodium chloride 0.9% 1,000 ML 75 ML IV (13:47)
[2023-01-05] MEDS: chlorthalidone 25 mg Tablet PO (14:30)
[2023-01-05] MEDS: lisinopril 20 mg Tablet PO (14:30)
--- NOTE | 2023-01-05 16:45 | W.PM.OPSUD ---
Surgery/Procedure H&P Update DATE OF PROCEDURE: January 05, 2023 DATE H&P PERFORMED: 01/05/23 H&P UPDATE INFORMATION: I have reviewed H&P completed within last 30 days, I have examined patient prior to procedure and No changes to prior documentation PREOP DIAGNOSIS: NSTEMI PRIMARY INDICATION FOR PROCEDURE: NSTEMI PLANNED PROCEDURE: Left heart cath with possible percutaneous coronary intervention PATIENT REASSESSED PRIOR TO SEDATION, WITH NO CHANGE NOTED: Yes PHYSICAL EXAM: alert, oriented x 3, clear to auscultation bilaterally and regular rate & rhythm AIRWAY EVAL/ANESTHESIA PLAN: normal airway, ASA III, Monitored Anesthesia, Local Anesthesia, Risks, benefits & alternatives of sedation and/or procedure discussed and Patient agrees to continue as planned ADDITIONAL INFORMATION: Moderate sedation
[2023-01-05] MEDS: acetaminophen 325 mg Tablet 650 MG PO (18:24)
--- NOTE | 2023-01-05 18:26 | PC.NURSE ---
TR band 1827 3ml out - 12ml left 1832 3ml out - 9ml left 1838 3ml out - 6ml left 1844 3ml out - 3ml left 1849 3ml out - 0ml left
[2023-01-05] MEDS: atorvastatin 40 mg Tablet PO (22:04)
[2023-01-05] MEDS: ondansetron 2 mg/ML SDV 2 mL 4 MG IVP (23:54)
[2023-01-06 01:04] VITALS: BP 148/59; PULSE 43; RESP 14; TEMP 36.4
[2023-01-06] MEDS: enoxaparin 60 mg/0.6 mL Syringe SUBCUT ×2 (01:41→11:03)
[2023-01-06 04:30] VITALS: PULSE 56; RESP 28
[2023-01-06 05:00] LABS: Basophils % 0.3 %; Eosinophils % 0.1 %; Hematocrit 42.6 % (37.0-47.0); Hemoglobin 14.4 g/dL (11.5-15.3); Lymphocytes # 1.1 10^3/uL (0.8-4.8); Mean Corpuscular HGB Conc 33.8 g/dL (30.0-36.0); Mean Corpuscular Hemoglobin 30.9 pg (28.0-34.0); Mean Corpuscular Volume 91.4 fl (81-99); Mean Platelet Volume 11.5 fL (7.4-10.4); Monocytes # 0.6 10^3/uL (0.2-0.9); Monocytes % 8.3 %; Neutrophils # 5.47 10^3/uL (1.8-7.7); Nucleated Red Blood Cells % 0 %; Platelet Count 242 10^3/cmm (130-400); Red Blood Count 4.66 10^6/uL (4.1-5.3); Red Cell Distribution Width 12.6 % (12.1-15.1); White Blood Count 7.2 10^3/uL (4.0-10.0)
[2023-01-06 05:28] LABS: Alanine Aminotransferase 9 U/L (0-33); Albumin Level 3.7 g/dL (3.5-5.2); Alkaline Phosphatase 79 U/L (35-105); Anion Gap 14.3 (5-19); Aspartate Amino Transferase 16 U/L (0-32); Blood Urea Nitrogen 6 mg/dL (8-23); Calcium 8.9 mg/dL (8.5-10.5); Carbon Dioxide 26 mmol/L (22-29); Chloride 99 mmol/L (98-107); Globulin 2.8 g/dL (1.3-4.6); Glucose 99 mg/dL (65-115); Osmolality Calculated 280 mOsm/kg (285-295); Potassium 3.3 mmol/L (3.5-5.1); Sodium 136 mmol/L (136-145); Total Protein 6.5 g/dL (6.6-8.7)
[2023-01-06] MEDS: OLANZapine 10 mg VIAL 2.5 MG IM (05:29)
--- NOTE | 2023-01-06 05:30 | PC.NURSE ---
Patient awake, angry. Yelling at nurse and daughter to get out of her room. Patient referring to the hospital room as her home. Unable to redirect patient. Patient became more agitated when trying to re-orient her to hospital setting. Patient then got out of bed and wandered about in her room and then the fischer. Patient unsteady on her feet, but not allowing daughter or nurse to help her walk. Patient swinging her arms out and yelling leave me alone go away . Patient threw bottle of soda at nurse. A second nurse arrived and was able to get patient into a wheelchair. Call placed to Dr. Orosco regarding patient agitation. Ordered received for zyprexa.
--- NOTE | 2023-01-06 06:19 | P.DS_ITS ---
Discharge Providers Date of Admission: 01/04/23 23:45 Date of Discharge: January 06, 2023 Attending Provider at Admission: Tammie Cuba MD Attending Provider at Discharge: Saskia Grimaldo MD Primary Care Provider: Aleah Rivera Diagnoses at Discharge Discharge Diagnosis (1) NSTEMI (non-ST elevated myocardial infarction): Status: Acute (2) Hypertension: Status: Chronic (3) Syncope: Status: Acute (4) Facial contusion: Status: Acute Reason for Visit Reason for Visit: fall Hospital Course Hospital Course 77-year-old female who was admitted to the hospital after 1 syncopal event, patient was diagnosed with NSTEMI at the time of admission she was started on ACS protocol, cardiology was consulted, patient went for the coronary angiogram, no intervention was done, patient remained hemodynamically stable, remained in sinus rhythm, telemetry showed sinus bradycardia heart rate ranging between 45- 60, patient remained hypertensive, she will receive amlodipine and lisinopril for hypertension avoid metoprolol, she will need event monitor for next 3 weeks, she was complaining of knee pain x-ray showed chondrocalcinosis, CT head unremarkable, 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 echo complete* [id number] Urgent Ultrasound 01/05/23 06:00 Completed Pending at discharge Category Date Time Status EXCELSIOR CUTTER request for service Routine Exams 01/05/23 13:43 Ordered Radiology Impressions Cervical Spine CT 01/04/23 19:56 IMPRESSION: No acute injury. Chest X-Ray 01/04/23 19:56 IMPRESSION: No acute injury. Head CT 01/04/23 19:57 IMPRESSION: No acute intracranial injury. Knee X-Ray 01/05/23 08:07 IMPRESSION: 1. Chondrocalcinosis of the medial and lateral menisci. 2. No fracture, joint effusion or other significant finding. Laboratory Results WBC 7.2 10^3/uL (4.0-10.0) 01/06/23 04:19 RBC 4.66 10^6/uL (4.1-5.3) 01/06/23 04:19 Hgb 14.4 g/dL (11.5-15.3) 01/06/23 04:19 Hct 42.6 % (37.0-47.0) 01/06/23 04:19 MCV 91.4 fl (81-99) 01/06/23 04:19 MCH 30.9 pg (28.0-34.0) 01/06/23 04:19 MCHC 33.8 g/dL (30.0-36.0) 01/06/23 04:19 RDW 12.6 % (12.1-15.1) 01/06/23 04:19 Plt Count 242 10^3/cmm (130-400) 01/06/23 04:19 MPV 11.5 fL (7.4-10.4) H 01/06/23 04:19 Neut % (Auto) 76.0 % 01/06/23 04:19 Lymph % (Auto) 15.0 % 01/06/23 04:19 [place] % (Auto) 8.3 % 01/06/23 04:19 Eos % (Auto) 0.1 % 01/06/23 04:19 Baso % (Auto) 0.3 % 01/06/23 04:19 Neut # (Auto) 5.47 10^3/uL (1.8-7.7) 01/06/23 04:19 Lymph # (Auto) 1.1 10^3/uL (0.8-4.8) 01/06/23 04:19 [place] # (Auto) 0.6 10^3/uL (0.2-0.9) 01/06/23 04:19 Eos # (Auto) 0.0 10^3/uL (0.0-0.8) 01/06/23 04:19 Baso # (Auto) 0.0 10^3/uL (0.0-0.1) 01/06/23 04:19 Nucleated RBC % (auto) 0 % 01/06/23 04:19 Nucleated RBCs # 0.0 /100WBC 01/06/23 04:19 PT 14.50 SECONDS (12.1-14.9) 01/05/23 01:59 INR 1.09 (0.8-1.2) 01/05/23 01:59 APTT 35.0 SECONDS (23.9-36.7) 01/05/23 01:59 Sodium 136 mmol/L (136-145) 01/06/23 04:19 Potassium 3.3 mmol/L (3.5-5.1) L 01/06/23 04:19 Chloride 99 mmol/L (98-107) 01/06/23 04:19 Carbon Dioxide 26 mmol/L (22-29) 01/06/23 04:19 Anion Gap 14.3 (5-19) 01/06/23 04:19 BUN 6 mg/dL (8-23) L 01/06/23 04:19 Creatinine 0.8 mg/dL (0.5-0.9) 01/06/23 04:19 GFR Calculation Not Reportable 01/06/23 04:19 Glucose 99 mg/dL (65-115) 01/06/23 04:19 Estimat Average Glucose 111 01/05/23 01:59 Hemoglobin A1c 5.5 % (4.0-6.0) 01/05/23 01:59 Calculated Osmolality 280 mOsm/kg (285-295) L 01/06/23 04:19 Calcium 8.9 mg/dL (8.5-10.5) 01/06/23 04:19 Phosphorus 3.1 mg/dL (2.5-4.5) 01/05/23 01:59 Magnesium 2.1 mg/dL (1.7-2.3) 01/05/23 01:59 Total Bilirubin 1.0 mg/dL (0.15-1.2) 01/06/23 04:19 AST 16 U/L (0-32) 01/06/23 04:19 ALT 9 U/L (0-33) 01/06/23 04:19 Alkaline Phosphatase 79 U/L (35-105) 01/06/23 04:19 Creatine Kinase 130 U/L (26-192) 01/04/23 19:30 Creatine Kinase 133 U/L (26-192) 01/04/23 19:30 Troponin T Baseline 65 ng/L (0-10) H 01/04/23 19:30 Troponin T 120 Minute 111.4 ng/L (0-10) H 01/04/23 21:14 Delta Troponin T 46.4 ABS# (0-10) H* 01/04/23 21:14 Troponin T Hi Sens 6Hr 130.0 ng/L (0-10) H 01/05/23 01:59 Troponin T Hi Sens 6Hr Delta 65.0 ng/L (0-12) H* 01/05/23 01:59 Total Protein 6.5 g/dL (6.6-8.7) L 01/06/23 04:19 Albumin 3.7 g/dL (3.5-5.2) 01/06/23 04:19 Globulin 2.8 g/dL (1.3-4.6) 01/06/23 04:19 Triglycerides 68 mg/dL (0-150) 01/05/23 01:59 Cholesterol 152 mg/dL (0-200) 01/05/23 01:59 LDL Cholesterol, Calc 90 mg/dL (50-129) 01/05/23 01:59 HDL Cholesterol 48 mg/dL (60-100) L 01/05/23 01:59 LDL/HDL Ratio 1.88 RATIO (0.00-3.22) 01/05/23 01:59 Cholesterol/HDL Ratio 3.17 mg/dL (0.0-4.40) 01/05/23 01:59 Procalcitonin 0.05 ng/mL (0-0.5) 01/04/23 19:30 TSH 3.65 uIU/mL (0.27-4.20) 01/05/23 01:59 Urine Color Yellow (Yellow) 01/05/23 02:17 Urine Appearance Clear (CLEAR) 01/05/23 02:17 Urine pH 5 (5-7) 01/05/23 02:17 Ur Specific [place] 1.020 (1.005-1.030) 01/05/23 02:17 Urine Protein Neg (Negative) 01/05/23 02:17 Urine Glucose (UA) Norm (Normal) 01/05/23 02:17 Urine Ketones 1+ (Negative) H 01/05/23 02:17 Urine Blood 2+ (Negative) H 01/05/23 02:17 Urine Nitrate Negative (Negative) 01/05/23 02:17 Urine Bilirubin Neg (Negative) 01/05/23 02:17 Urine Urobilinogen Neg mg/dL (Negative) 01/05/23 02:17 Ur Leukocyte Esterase Negative (Negative) 01/05/23 02:17 Urine RBC 5-10 /hpf (0-2) H 01/05/23 02:17 Urine WBC 0-4 /hpf (0-5) H 01/05/23 02:17 Ur Squamous Epith Cells 0-4 /hpf (0-5) H 01/05/23 02:17 Amorphous Sediment 1+ /hpf 01/05/23 02:17 Urine Bacteria Trace /hpf (NONE) 01/05/23 02:17 Urine Mucus 1+ /hpf 01/05/23 02:17 Vitals Last Vital Signs Temp 97.6 F 01/06/23 01:04 Pulse 56 L 01/06/23 04:30 Resp 28 H 01/06/23 04:30 BP 148/59 01/06/23 01:04 Pulse Ox 95 01/05/23 22:00 O2 Del Method 01/06/23 04:30 Discharge Plan Discharge Patient Disposition: Home Condition: Stable Prescriptions: New chlorthalidone 25 mg Tablet 25 mg PO DAILY Qty: 60 3RF aspirin 81 mg tablet,delayed release (DR/EC) 81 mg PO DAILY Qty: 30 3RF lisinopril 20 mg Tablet 20 mg PO DAILY Qty: 60 3RF Discharge Orders: Discharge Order (Routine); Ordered 01/06/23 Ordered By: Saskia Grimaldo Other Ambulatory Orders: MCT/Event Monitor 21 Days (Routine) Timeframe: 3 Weeks Facility: [facility] - Location: Radiology Ordered By: Saskia Grimaldo Referrals: David Sheppard M.D [Physician] - 1 month Discharge Diet: Low Salt Discharge Activity: Increase activity as tolerated Patient Instructions: Syncope (DC), Hypertension (DC), Opioid Safety Discharge Attestations Time Spent in Discharge Care*: less than 30 min Quality Metrics Clinical Quality Measures [ No reported AMI, CVA or VTE this stay] Coding Level of Care Code Acute Code for Chg Fwd Diagnoses NSTEMI (non-ST elevated myocardial infarction) I21.4 Hypertension I10 Syncope R55 Facial contusion S00.83XA
--- NOTE | 2023-01-06 07:00 | PC.NURSE ---
Patient refused lab draw for D-dimer and became agitated again. Patient walked out of her room, refused assistance and yelled at anyone who attempted to help or guide her, including daughter. Racing Secretary And Handicapper came upon patient heading out of CSU with daughter and nurse following. Patient's agitation worsening with threatening words, profanity and swinging out her arms. Security was called for assistance. Dr. Grimaldo contacted regading patient behavior and refusal of lab draw. Order received for haldol 2mg.
[2023-01-06 07:10] LABS: D Dimer 0.59 ug/mIFEU (0-0.59)
[2023-01-06] MEDS: haloperidol inj 5 mg/mL INJ 1 mL 2 MG IM (07:15)
[2023-01-06 08:00] VITALS: BP 146/89; PULSE 53; RESP 22; O2SAT 99
--- NOTE | 2023-01-06 08:13 | P.PN_ITS ---
Subjective Subjective: Patient is doing well. Coronary angiogram did not reveal significant CAD. She has bradycardia. Vitals/I&O/Wt Last Vital Signs Temp 97.6 F 01/06/23 01:04 Pulse 56 L 01/06/23 04:30 Resp 28 H 01/06/23 04:30 BP 148/59 01/06/23 01:04 Pulse Ox 95 01/05/23 22:00 O2 Del Method 01/06/23 04:30 01/05/23 01/06/23 01/06/23 22:59 06:59 14:59 Intake Total 871.25 / 1823.25 0 / 0 Output Total 800 / 1200 400 / 1600 Balance 71.25 / 623.25 -400 / 223.25 0 / 0 Weight last 48 hrs Weight 142 lb 1.6 oz Weight 120 lb Physical Exam Narrative: GENERAL: Patient is alert, awake and oriented x3. [] NECK: No jugular vein distension. [] HEENT: No cyanosis. No icterus. No pallor. [] HEART: Regular S1 and S2. No murmur, rub or gallop. [] LUNGS: Clear to auscultate bilaterally. [] CENTRAL NERVOUS SYSTEM: Grossly nonfocal. [] EXTREMITIES: Lower extremities with 1+ edema bilaterally. Pulses palpable in the lower extremities, both dorsalis pedis and posterior tibial. [] Data 01/06/23 04:19 01/06/23 04:19 A&P Assessment and plan (1) NSTEMI (non-ST elevated myocardial infarction): (2) Hypertension: (3) Syncope: (4) Facial contusion: Plan Coronary angiogram does not reveal significant CAD. Echocardiogram shows normal LV systolic function. She has bradycardia. Will need event monitor. Thank you for involving us with care of this patient. Please call with questions. Attestations Medical Necessity Statement*: Care expected to cross 2 midnights. Coding Level of Care Code Acute Code for [facility] Diagnoses NSTEMI (non-ST elevated myocardial infarction) I21.4 Hypertension I10 Syncope R55 Facial contusion S00.83XA
[2023-01-06] MEDS: aspirin 81 mg EC Tablet PO (09:15)
[2023-01-06] MEDS: clopidogrel 75 mg Tablet PO (09:15)
[2023-01-06] MEDS: lisinopril 20 mg Tablet PO (09:15)
[2023-01-06] MEDS: chlorthalidone 25 mg Tablet PO (09:15)
--- NOTE | 2023-01-06 10:13 | PC.PHAR ---
pt states she takes no rx medications or otc meds-ext med history doesnt show any medications filled recently
--- NOTE | 2023-01-06 10:39 | PC.NURSE ---
21 day event monitor to be placed for patient. [facility] called, equipment not available until 01/19. physician notified.
[2023-01-06] MEDS: potassium chloride ER 20 mEq Tablet 40 MEQ PO (11:02)
[2023-01-06 14:11] VITALS: BP 112/39; PULSE 55; RESP 18; O2SAT 98
--- NOTE | 2023-01-06 14:11 | PC.NURSE ---
around 0900 patient removed telemetry monitoring cont. will allow some intermit checks depending on mood.
[2023-01-06 16:18] VITALS: BP 108/81; PULSE 78; RESP 18; O2SAT 99
== END 2023-01-06 16:41 | disposition home or self-care (01) | DRG 282 ==
LOC: ER 22:45 → CSU 23:46
PROVIDERS: Internal Medicine Cardiovascular Disease; Admitting Provider Hospitalist; Emergency Provider Emergency Medicine; PCP Physician Assistant; Visit Provider Internal Medicine
DX: I21.4 Non-ST elevation (NSTEMI) myocardial infarction (principal); I25.10 Atherosclerotic heart disease of native coronary artery without angina pectoris; S00.93XA Contusion of unspecified part of head, initial encounter; W18.30XA Fall on same level, unspecified, initial encounter; I10 Essential (primary) hypertension; R55 Syncope and collapse; T50.906A Underdosing of unspecified drugs, medicaments and biological substances, initial encounter; Z91.128 Patient's intentional underdosing of medication regimen for other reason; Z90.49 Acquired absence of other specified parts of digestive tract; F03.90 Unspecified dementia, unspecified severity, without behavioral disturbance, psychotic disturbance, mood disturbance, and anxiety; M17.12 Unilateral primary osteoarthritis, left knee
CPT/HCPCS: 36415; 70450; 71045; 72125; 73560; 80048; 80053; 80061; 81001; 82550; 83036; 83735; 84100; 84145; 84443; 84484; 85025; 85378; 85610; 85730; 90471; 90714; 93005; 93306; 93458; 96372; 99152; 99153; 99285; C1769; C1887; C1894; J1630; J1644; J1650; J2250; J2405; J3010; J3490; J7030; Q9967

== ENCOUNTER → 2023-01-09 10:12 | Outpatient (BNVA) | payer MEDICARE, OTHER, SELFPAY | PROVIDERS: PCP Physician Assistant; Visit Provider Specialist | DX: R55 Syncope and collapse (principal); I10 Essential (primary) hypertension | CPT/HCPCS: 99214 ==

== ENCOUNTER → 2023-02-23 09:36 | Outpatient (BNVA) | payer MEDICARE, OTHER, SELFPAY | PROVIDERS: PCP Physician Assistant; Visit Provider Nurse Practitioner Family | DX: R55 Syncope and collapse (principal); R00.1 Bradycardia, unspecified; I10 Essential (primary) hypertension | CPT/HCPCS: 99214 ==

== ENCOUNTER 2023-03-17 12:00 | Outpatient (CLI) | payer MEDICARE, OTHER, SELFPAY | END 2023-03-17 12:01 | disposition home or self-care (01) | LOC: SLEEP 03-18 10:09 | PROVIDERS: PCP Physician Assistant; Visit Provider Nurse Practitioner Family | DX: R55 Syncope and collapse (principal); R00.1 Bradycardia, unspecified; R06.83 Snoring; R53.83 Other fatigue | CPT/HCPCS: G0399 ==

== ENCOUNTER 2023-10-27 12:09 | Emergency (ER) | payer MEDICARE, OTHER, SELFPAY ==
--- NOTE | 2023-10-27 12:13 | ECG_ITS ---
[facility] Test Date: 2023-10-27 Pat Name: Ester Beasley Department: Room: Gender: Female Secretary: : 1945 Requested By: Humberto Justice Order Number: [id number] Jonh MD: Rosaura Lainez M.D. Measurements Intervals [place] Rate: 90 P: 61 WV: 183 QRS: -21 QRSD: 78 T: 11 QT: 336 QTc: 411 Interpretive Statements SINUS RHYTHM LEFT VENTRICULAR HYPERTROPHY AND ST-T CHANGE [VOLTAGE CRITERIA PLUS ST/T ABNORMALITY] POSSIBLE ANTERIOR MYOCARDIAL INFARCTION , PROBABLY OLD [30 ms Q WAVE IN V3/V4, OR R < 0.2 mV IN V4] Compared to ECG 01/05/2023 03:05:34 Myocardial infarct finding now present Sinus bradycardia no longer present ST (T wave) deviation still present Electronically Signed On 10-27-2023 19:36:50 REALTY LOAN SPECIALIST by Rosaura Lainez M.D. [id number]
--- NOTE | 2023-10-27 12:17 | ED_ITS ---
HPI - General Adult 2 General: Chief complaint: Altered Mental Status Stated complaint: AMS Time Seen by Provider: 10/27/23 12:11 History of Present Illness: 78-year-old old female who presents to [facility] emergency room with complaints of possibly having choked at the dining table at the half-way. She has a history of dementia. She is not able to really tell me what is going on or why she is here. She denies chest pain abdominal pain shortness of breath dysuria urgency or frequency [facility] ED 2 PFS: Medical History Dementia Facial contusion Family history of familial adenomatous polyposis 2 para 2 History of epilepsy history of grand mal seizures, last ~2014, not on chronic medication Hypertension NSTEMI (non-ST elevated myocardial infarction) Short-term memory loss mild Syncope Surgical History History of colectomy subtotal colectomy with ileorectal anastomosis performed by Dr Chaney in 1992 due to family history of familial adenomatous polyposis Family History Father CAD (coronary artery disease) age 50 from heart attack Other Familial polyposis Social History Smoking and tobacco/nicotine status: never used tobacco/nicotine Alcohol intake: never Substance/Drug Use: never Household members: family Course 2 Vital Signs: Vital signs: Vital Signs Temperature 98.1 F 10/27/23 12:29 Pulse Rate 93 10/27/23 12:29 Respiratory Rate 18 10/27/23 12:29 Blood Pressure 143/85 10/27/23 12:29 Pulse Oximetry 97 10/27/23 12:29 Oxygen Delivery Me thod Room Air 10/27/23 12:29 MDM - General Adult Medical Decision Making Report from the half-way was that she became stiff and unresponsive at the dining table this morning. Initially there is some concern she might choke she did not seem to have any difficulty breathing her chest x-ray is normal. EMS reported that when they arrived she was essentially normal and at her baseline. When she arrives here she is awake and alert she cannot really tell me why she is here she denies have any discomfort or pain or feeling ill. Family member arrived later and states she has a history of seizures she thinks she may have had a seizure. She is not on any medications. She has had episodes like this before in the past. Labs reviewed no acute findings no emergent findings will discharge patient back to the half-way follow-up with your primary care Medical Records I reviewed the patient's medical records. Lab Data I reviewed the patient's lab results. 10/27/23 12:26 10/27/23 12:26 Laboratory Results WBC 7.75 10^3/uL (3.29-11.43) 10/27/23 12: RBC 4.35 10^6/uL (3.85-5.65) 10/27/23 12: Hgb 14.00 g/dL (11.27-16.99) 10/27/23 12: Hct 43.0 % (36-47) 10/27/23 12: MCV 98.9 fl (85-98) H 10/27/23 12:26 MCH 32.2 pg (27-33) 10/27/23 12: MCHC 32.6 g/dL (30-55) 10/27/23 12: RDW 12.8 % (12.1-15.1) 10/27/23 12: Plt Count 289 10^3/cmm (157-399) 10/27/23 12: MPV 11.2 fL (7.4-10.4) H 10/27/23 12:26 Neut % (Auto) 59.4 % 10/27/23 12: Lymph % (Auto) 23.4 % 10/27/23 12:26 [place] % (Auto) 8.9 % 10/27/23 12: Eos % (Auto) 4.9 % 10/27/23 12: Baso % (Auto) 0.9 % 10/27/23 12: Neut # (Auto) 4.61 10^3/uL (1.8-7.7) 10/27/23 12: Lymph # (Auto) 1.8 10^3/uL (0.8-4.8) 10/27/23 12: [place] # (Auto) 0.7 10^3/uL (0.2-0.9) 10/27/23 12:26 Eos # (Auto) 0.4 10^3/uL (0.0-0.8) 10/27/23 12:26 Baso # (Auto) 0.1 10^3/uL (0.0-0.1) 10/27/23 12:26 Nucleated RBC % (auto) 0 % 10/27/23 12: Nucleated RBCs # 0.0 /100WBC 10/27/23 12:26 Sodium 140 mmol/L (136-145) 10/27/23 12:26 Potassium 4.4 mmol/L (3.5-5.1) 10/27/23 12:26 Chloride 104 mmol/L (98-107) 10/27/23 12:26 Carbon Dioxide 22 mmol/L (22-29) 10/27/23 12:26 Anion Gap 18.4 (5-19) 10/27/23 12:26 BUN 10 mg/dL (8-23) 10/27/23 12:26 Creatinine 0.8 mg/dL (0.5-0.9) 10/27/23 12:26 GFR Calculation Not Reportable 10/27/23 12:26 Glucose 114 mg/dL (65-115) 10/27/23 12:26 Calculated Osmolality 290 mOsm/kg (285-295) 10/27/23 12:26 Calcium 9.1 mg/dL (8.5-10.5) 10/27/23 12:26 Total Bilirubin 0.3 mg/dL (0.15-1.2) 10/27/23 12:26 AST 21 U/L (0-32) 10/27/23 12:26 ALT 26 U/L (0-33) 10/27/23 12:26 Alkaline Phosphatase 118 U/L (35-105) H 10/27/23 12:26 Troponin T Baseline 17 ng/L (0-10) H 10/27/23 12:26 Total Protein 6.6 g/dL (6.6-8.7) 10/27/23 12:26 Albumin 3.9 g/dL (3.5-5.2) 10/27/23 12:26 Globulin 2.7 g/dL (1.3-4.6) 10/27/23 12:26 Lipase 54 U/L (13-60) 10/27/23 12:26 All radiology interpretation(s) finalized by discharge Discharge Plan Discharge Patient Disposition: Home Clinical Impression: Seizure, Dementia Condition: Stable Prescriptions: No Action lisinopril 20 mg tablet 20 mg PO DAILY@08 aspirin 81 mg tablet,delayed release (DR/EC) 81 mg PO DAILY@08 mirtazapine 7.5 mg tablet 7.5 mg PO BEDTIME@20 Discharge Orders: Discharge ED (Routine); Ordered 10/27/23 Ordered By: Humberto Villarreal Referrals: Aleah Rivera PA [Primary Care Provider] - Discharge Diet: Usual diet Discharge Activity: Resume usual activity Patient Instructions: Altered Mental Status (ED), Opioid Safety, Pain Management Activity Restrictions/Additional Instructions: Thank you for choosing [facility] for your healthcare needs today. Please realize this is an emergency room and that we are providing you with a medical screening exam and this may not be complete and all inclusive of all the testing and or work up that you may need to determine your ailment or severity of your illness. It is very important that you follow up as instructed or that you return to the Emergency Department should you have concerns or if your condition changes or worsens in any way. Follow-up with your primary care doctor through the half-way. Coding Level of Care Code ED Imaging Analyst for [employer]
[2023-10-27 12:29] VITALS: BP 143/85; PULSE 93; RESP 18; TEMP 36.7; O2SAT 97
--- NOTE | 2023-10-27 12:39 | XR_ITS ---
WS: [id number] PORTABLE CHEST HISTORY: dyspnea/cough COMPARISON: 01/04/2023 Lung volumes are slightly decreased. Mild hazy attenuation at the LEFT lung base is probably atelecta sis with a granuloma. No dense consolidation or pneumonia. No pleural effusion or pneumothorax. Cardiac size: Normal. Mediastinum/Aorta: Mild atherosclerosis aorta. No osseous abnormality seen. IMPRESSION: Minimal atelectasis at the LEFT lung base. No acute cardiopulmonary disease.
[2023-10-27 12:41] LABS: Basophils # 0.1 10^3/uL (0.0-0.1); Basophils % 0.9 %; Eosinophils # 0.4 10^3/uL (0.0-0.8); Eosinophils % 4.9 %; Lymphocytes # 1.8 10^3/uL (0.8-4.8); Lymphocytes % 23.4 %; Mean Corpuscular HGB Conc 32.6 g/dL (30-55); Mean Corpuscular Hemoglobin 32.2 pg (27-33); Mean Corpuscular Volume 98.9 fl (85-98); Mean Platelet Volume 11.2 fL (7.4-10.4); Monocytes # 0.7 10^3/uL (0.2-0.9); Monocytes % 8.9 %; Neutrophils # 4.61 10^3/uL (1.8-7.7); Neutrophils % 59.4 %; Nucleated Red Blood Cells % 0 %; Platelet Count 289 10^3/cmm (157-399); Red Blood Count 4.35 10^6/uL (3.85-5.65); Red Cell Distribution Width 12.8 % (12.1-15.1); White Blood Count 7.75 10^3/uL (3.29-11.43)
[2023-10-27 12:57] LABS: Alanine Aminotransferase 26 U/L (0-33); Albumin Level 3.9 g/dL (3.5-5.2); Alkaline Phosphatase 118 U/L (35-105); Anion Gap 18.4 (5-19); Aspartate Amino Transferase 21 U/L (0-32); Blood Urea Nitrogen 10 mg/dL (8-23); Calcium 9.1 mg/dL (8.5-10.5); Carbon Dioxide 22 mmol/L (22-29); Chloride 104 mmol/L (98-107); Globulin 2.7 g/dL (1.3-4.6); Glucose 114 mg/dL (65-115); Lipase 54 U/L (13-60); Osmolality Calculated 290 mOsm/kg (285-295); Potassium 4.4 mmol/L (3.5-5.1); Sodium 140 mmol/L (136-145); Total Bilirubin 0.3 mg/dL (0.15-1.2); Total Protein 6.6 g/dL (6.6-8.7)
--- NOTE | 2023-10-27 13:01 | PC.PHAR ---
Addendum entered by Lary Lynne 10/27/23 13:33: yumiko from [facility] pt only takes 3 meds Original Note: [facility] will fax med list
[2023-10-27 13:03] LABS: Troponin(5th) Baseline 17 ng/L (0-10)
[2023-10-27 15:35] LABS: Add Urine Microscopic? YES; Bilirubin Urine Neg (Negative); Blood Urine 2+ (Negative); Glucose Urine UA Norm (Normal); Ketones Urine 1+ (Negative); Leukocyte Esterase Urine Negative (Negative); Nitrate Urine Negative (Negative); Protein Urine Neg (Negative); Specific Gravity, Urine 1.015 (1.005-1.030); Urine Appearance Clear (CLEAR); Urine Color Yellow (Yellow); Urobilinogen Urine Norm (Negative); pH Urine 7 (5-7)
[2023-10-27 15:38] LABS: Add Urine Culture? No; Bacteria Urine TRACE /hpf; Mucus Urine TRACE /hpf; RBC Urine 0-4 /hpf (0-2); Squamous Epithelial Cell Urine RARE /hpf (0-5); WBC Urine RARE /hpf (0-5)
== END 2023-10-27 14:37 | disposition home or self-care (01) ==
PROVIDERS: Emergency Provider Family Medicine; PCP Physician Assistant
DX: R56.9 Unspecified convulsions (principal); F03.90 Unspecified dementia, unspecified severity, without behavioral disturbance, psychotic disturbance, mood disturbance, and anxiety; Z79.82 Long term (current) use of aspirin; I10 Essential (primary) hypertension; I25.2 Old myocardial infarction
CPT/HCPCS: 36415; 71045; 80053; 81001; 83690; 84484; 85025; 93005; 99285

== ENCOUNTER 2023-10-29 19:07 | Outpatient (CLI) | payer MEDICARE, OTHER, SELFPAY ==
[2023-10-29 19:37] LABS: Urine Appearance Clear (CLEAR); Urine Color Colorless (Yellow); pH Urine 6 (5-7)
[2023-10-29 19:42] LABS: Add Urine Microscopic? YES; Bilirubin Urine Neg (Negative); Blood Urine 2+ (Negative); Glucose Urine UA Norm (Normal); Ketones Urine Negative (Negative); Leukocyte Esterase Urine Negative (Negative); Nitrate Urine Negative (Negative); Protein Urine Neg (Negative); Urobilinogen Urine Norm (Negative)
[2023-10-29 19:45] LABS: Add Urine Culture? No; Bacteria Urine TRACE /hpf; Mucus Urine TRACE /hpf; RBC Urine 0-4 /hpf (0-2); Squamous Epithelial Cell Urine 0-4 /hpf (0-5); Transitional Epi Cells Urine 0-4 /hpf; WBC Urine 0-4 /hpf (0-5)
== END 2023-10-29 19:08 | disposition home or self-care (01) ==
PROVIDERS: PCP Physician Assistant; Visit Provider Family Medicine
DX: N39.0 Urinary tract infection, site not specified (principal)
CPT/HCPCS: 81001; 87086

== ENCOUNTER 2024-07-18 12:48 | Emergency (ER) | payer MEDICARE, OTHER, SELFPAY ==
[2024-07-18 12:52] VITALS: BP 152/62; PULSE 60; RESP 18; TEMP 36.8; O2SAT 98; BMI 27.4
--- NOTE | 2024-07-18 13:01 | CTR_ITS ---
PROCEDURE INFORMATION: Exam: CT Head Without Contrast Exam date and time: 07/18/2024 1:12 PM Age: 79 years old Clinical indication: Injury or trauma; Fall; Other: Pain; Additional info: Fall, head injury TECHNIQUE: Imaging protocol: Computed tomography of the head without contrast. Radiation optimization: All CT scans at this facility use at least one of these dose optimization techniques: automated exposure control; mA and/or kV adjustment per patient size (includes targeted exams where dose is matched to clinical indication); or iterative reconstruction. COMPARISON: CT head wo con* [id number] 01/04/2023 8:14 PM RADIATION DOSE METRICS: Total DLP (mGy-cm): 1007 FINDINGS: Brain: Moderate nonspecific white matter low attenuation which may be related to microvascular ischemic changes. No acute confluent lobar ischemic infarct. No acute intracranial hemorrhage. Cerebral ventricles: The ventricles and sulci are prominent in size compatible with moderate to severe atrophy. Paranasal sinuses: No fluid levels. Mastoid air cells: Visualized mastoid air cells are well aerated. Bones: No acute calvarial fracture. Soft tissues: Visualized soft tissues are unremarkable. CT/CT head wo con* [id number] IMPRESSION: No acute intracranial abnormality. If symptoms persist, consider further evaluation with MRI, if MRI is clinically safe to obtain.
--- NOTE | 2024-07-18 13:14 | W.ED.FALL ---
HPI - Fall General: Chief Complaint: Fall Stated Complaint: FALL, N/V Time Seen by Provider: 07/18/24 12:57 History of Present Illness: 79-year-old female with a history of dementia seizure disorder, hypertension and epilepsy who presents [facility] the [facility] after a fall. Family is here. They states she had fallen earlier in the day and has a small superficial laceration over left eyebrow. She had been acting normal but then after lunch started complaining of a headache and had some vomiting so she was sent to the emergency room. Currently she is at her baseline. She does not complain of a headache at this time. She has no focal motor deficits. No fever. Related Data Home Medications Medication Instructions Recorded Confirmed aspirin 81 mg tablet,delayed 81 mg PO DAILY@10/27/23 07/18/24 release lisinopril 20 mg tablet 20 mg PO DAILY@10/27/23 07/18/24 mirtazapine 7.5 mg tablet 7.5 mg PO BEDTIME@10/27/23 07/18/24 Allergies Allergy/AdvReac Type Severity Reaction Status Date / Time egg Allergy Unknown Verified 03/25/24 10:42 lettuce Allergy Unknown Verified 03/25/24 10:42 Review of Systems General: Reports: ROS unobtainable due to medical condition PFSH ED PFSH: Medical History Dementia Family history of familial adenomatous polyposis Facial contusion Short-term memory loss mild NSTEMI (non-ST elevated myocardial infarction) Syncope History of epilepsy history of grand mal seizures, last ~2014, not on chronic medication Hypertension 2 para 2 Surgical History History of colectomy subtotal colectomy with ileorectal anastomosis performed by Dr Chaney in 1992 due to family history of familial adenomatous polyposis Family History Father CAD (coronary artery disease) age 50 from heart attack Other Familial polyposis Social History Smoking and tobacco/nicotine status: never used tobacco/nicotine Alcohol intake: never Substance/Drug Use: never Household members: family Physical Exam Narrative: EXAM NARRATIVE: General: Alert, no acute distress. Skin: Warm, dry. Head: Normocephalic, atraumatic. Neck: Supple, trachea midline. Eye: Extraocular movements are intact. Ears, nose, mouth and throat: mucosa moist. Cardiovascular: Regular, Normal peripheral perfusion. Respiratory: Lungs are clear to auscultation, respirations are non-labored, breath sounds are equal, Symmetrical chest wall expansion. Gastrointestinal: Soft, Nontender, Non distended Musculoskeletal: Normal ROM, no deformity. Neurological: Alert and oriented to her family member, No focal neurological deficit observed. Psychiatric: Cooperative, appropriate mood & affect. Course Vital Signs: Vital signs: Vital Signs Temperature 98.2 F 07/18/24 12:52 Pulse Rate 60 07/18/24 12:52 Respiratory Rate 18 07/18/24 12:52 Blood Pressure 152/62 07/18/24 12:52 Pulse Oximetry 98 07/18/24 12:52 Oxygen Delivery Me thod Room Air 07/18/24 12:52 MDM - Fall Medical Decision Making CT head: No acute intracranial process. no intracranial hemorrhage, no evidence of infarct. no evidence of acute fracture.This was reviewed and interpreted by myself the ER physician. Assessment and plan: Head injury - Discharged home - Discussed plan with patient. Answered any questions. - Evaluation and treatment of this problem were appropriate in the emergency setting. Lab Data Radiology Impressions Head CT 07/18/24 13:01 IMPRESSION: No acute intracranial abnormality. If symptoms persist, consider further evaluation with MRI, if MRI is clinically safe to obtain. All radiology interpretation(s) finalized by discharge Discharge Plan Discharge Patient Disposition: Home Clinical Impression: Head injury Condition: Stable Prescriptions: No Action lisinopril 20 mg tablet 20 mg PO DAILY@08 aspirin 81 mg tablet,delayed release (DR/EC) 81 mg PO DAILY@08 mirtazapine 7.5 mg tablet 7.5 mg PO BEDTIME@20 Discharge Orders: Discharge ED (Routine); Ordered 07/18/24 Ordered By: Adina Ha Referrals: Sandro Sanders DO [Primary Care Provider] - Discharge Diet: Usual diet Discharge Activity: Increase activity as tolerated Patient Instructions: Head Injury (ED) Activity Restrictions/Additional Instructions: Thank you for choosing [facility] for your healthcare needs today. Please realize this is an emergency room and that we are providing you with a medical screening exam and this may not be complete and all inclusive of all the testing and or work up that you may need to determine your ailment or severity of your illness. You have been screened and evaluated and felt safe for discharge. Health conditions do change or evolve sometimes and as such it is important that you follow up with your Primary Doctor to be re checked, 3-5 days is a general good time frame for follow up. You are always welcome to return to the ED for re assessment if your symptoms are worsening or you have new concerns Coding Level of Care Code ED Talent Acquisition Consultant for [employer] Sauer
--- NOTE | 2024-07-18 13:36 | PC.PHAR ---
patient is from [facility]
[2024-07-18 15:10] VITALS: BP 156/71; PULSE 57; RESP 18; O2SAT 96
== END 2024-07-18 15:12 | disposition home or self-care (01) ==
PROVIDERS: Emergency Provider Emergency Medicine; PCP Family Medicine
DX: S01.112A Laceration without foreign body of left eyelid and periocular area, initial encounter (principal); W19.XXXA Unspecified fall, initial encounter; Y92.129 Unspecified place in nursing home as the place of occurrence of the external cause; F03.90 Unspecified dementia, unspecified severity, without behavioral disturbance, psychotic disturbance, mood disturbance, and anxiety; I25.2 Old myocardial infarction; I10 Essential (primary) hypertension
CPT/HCPCS: 70450; 99284

== ENCOUNTER 2024-07-18 16:35 | Emergency (ER) | payer MEDICARE, OTHER, SELFPAY ==
[2024-07-18 16:36] VITALS: BP 157/92; PULSE 68; RESP 18; TEMP 37.1; O2SAT 98; BMI 27.4
--- NOTE | 2024-07-18 16:59 | ED_ITS ---
Documented by User: Humberto Villarreal DO 07/19/24 05:45 HPI - Abdominal Pain 2 General: Chief Complaint: Abdominal Pain Stated Complaint: ABD PAIN Time Seen by Provider: 07/18/24 16:47 History of Present Illness: 71-year-old female with a history of Alz heimer's dementia presents to the emergency room with complaints of abdominal pain. She vomited once this morning. She lives at a [facility] she does have some Alzheimer's dementia. She is been in a hospital several times for complaints of abdominal pain. She denies any dysuria. Family member with her at the bedside is uncertain if she has had any hematemesis or coffee-ground emesis he states that it has been reported to them. No reports of diarrhea. No report of fever. Associated Symptoms: Denies chills, dysuria and fever(s) Related Data Home Medications Medication Instructions Recorded Confirmed aspirin 81 mg tablet,delayed 81 mg PO DAILY@10/27/23 07/18/24 release lisinopril 20 mg tablet 20 mg PO DAILY@10/27/23 07/18/24 mirtazapine 7.5 mg tablet 7.5 mg PO BEDTIME@10/27/23 07/18/24 Allergies Allergy/AdvReac Type Severity Reaction Status Date / Time egg Allergy Unknown Verified 03/25/24 10:42 lettuce Allergy Unknown Verified 03/25/24 10:42 Review of Systems 2 Const: Denies: fever(s) or chills Card: Denies: chest pain Resp: Denies: dyspnea GI: Denies: abdominal pain : Denies: dysuria, urinary frequency or urinary urgency Musc: Denies: neck pain or back pain Skin/Breast: Denies: rash PFSH ED 2 PFSH: Medical History Dementia Family history of familial adenomatous polyposis Facial contusion Short-term memory loss mild NSTEMI (non-ST elevated myocardial infarction) Syncope History of epilepsy history of grand mal seizures, last ~2014, not on chronic medication Hypertension 2 para 2 Surgical History History of colectomy subtotal colectomy with ileorectal anastomosis performed by Dr Chaney in 1992 due to family history of familial adenomatous polyposis Family History Father CAD (coronary artery disease) age 50 from heart attack Other Familial polyposis Social History Smoking and tobacco/nicotine status: never used tobacco/nicotine Alcohol intake: never Substance/Drug Use: never Household members: family Physical Exam 2 Const: GENERAL APPEARANCE: cooperative ORIENTATION/CONSCIOUSNESS: Yes awake, Yes oriented to person, Yes oriented to place and Yes oriented to time HENMT: COMMON NORMALS: normocephalic, atraumatic and hearing grossly normal bilaterally HEAD & SCALP: normocephalic and atraumatic Resp: COMMON NORMALS: normal respiratory effort, No retractions, No use of accessory muscles and clear to auscultation bilaterally AUSCULTATION: clear to auscultation bilaterally Cardio: COMMON NORMALS: regular rate, regular rhythm and No murmurs present (Cardio) RATE: regular rate RHYTHM: regular rhythm GI: COMMON NORMALS: No hepatosplenomegaly present AUSCULTATION: Yes normoactive bowel sounds PALPATION: Yes Tenderness to palpation present (GI) Details: RLQ, No Guarding due to palpation present (GI) and Yes No hepatosplenomegaly present Extremity: COMMON NORMALS: normal to inspection, capillary refill normal, no clubbing, cyanosis or edema, no calf tenderness and no pedal edema Neuro: SENSORIUM/ORIENTATION: Yes oriented to person, Yes oriented to place and Yes oriented to time Skin: COMMON NORMALS: no rashes or lesions noted GENERAL SKIN EXAM: no rashes or lesions noted Course 2 Vital Signs: Vital signs: Vital Signs Temperature 98.7 F 07/18/24 16:36 Pulse Rate 59 L 07/18/24 23:07 Respiratory Rate 18 07/18/24 16:36 Blood Pressure 140/63 07/18/24 23:07 Pulse Oximetry 100 07/18/24 23:07 Oxygen Delivery Me thod Room Air 07/18/24 19:16 MDM - Abdominal Pain Medical Decision Making Care signed out to Dr. Rubio at change of shift. See final notes for diagnosis and disposition. Care transferred to myself at shift change, lab work reviewed revealed total bili 1.4, AST 47 ALT 34, alk phos 136, lipase 887, noncontrasted abdomen pelvis CT showed prominent gallbladder with suggestion of dependent layering gallstones, ultrasound showed cholelithiasis with distended gallbladder with a dilated common bile duct of 1.2 cm. Due to these findings person needs an ERCP/MRCP in someone that can deal with the findings of those test. Patient preferred [facility] in [place]. [facility] was called Dr. Clancy will be the accepting physician to their med/tele floor Dr. Clancy called back and said they thought they had a GI doc front loader residential driver but now there is not one and they will not be able to accept in transfer. [place] does not have an ERCP capabilities, Esteban Rodríguez was called Dr. Savanah RICHARDSON says he is ERCP capable tomorrow but wants her admitted to the hospitalist, Dr. Mosley the hospitalist was notified and accepted to [facility] with telemetry. Lab Data 07/18/24 16:56 07/18/24 16:56 Labs/Radiology: Radiology Impressions Abdomen/Pelvis CT 07/18/24 17:10 IMPRESSION: 1. Prominent gallbladder measuring up to 9.5 x 4.1 cm with suggestion of dependent layering gallstones. If there is clinical concern for acute cholecystitis, then recommend further evaluation with ultrasound and/or HIDA scan. 2. Evaluation of the bowel is limited without the use of IV and oral contrast. There appears to have been prior bowel surgery with possible left hemicolectomy. It is difficult to follow the loops of bowel particularly in the mid abdomen. If there is clinical concern for bowel pathology, then recommend repeat CT scan with IV and oral contrast. 3. Scattered nonspecific lung nodules . Recommend comparison to prior CT scans of the chest if available. Otherwise, Fleischner society recommendations: For patients at low risk (minimal or absent history of smoking and of other known risk factors), no routine follow-up is indicated. For patients at high risk (history of smoking or of other known risk factors), consider optional CT Chest at 12 months. (Reference: Marques) COMMENTS: Consistent with the [employer]'s Incidental Findings Committee white paper (J Am Gladys Radiol 2018): Any incidental renal lesion less than 1 cm or classified as too small to characterize, or any incidental cystic renal lesion characterized as simple-appearing, is likely benign. No follow-up imaging is recommended for these lesions per consensus recommendations based on imaging criteria. REFERENCES: Marques Shepard, et al. Guidelines for Management of Incidental Pulmonary Nodules Detected on CT Images: From the Fleischner Society 2017. Radiology. 2017;284(1):228-243. ADDENDUM: 07/18/24 9517 ADDENDUM: THIS REPORT CONTAINS FINDINGS THAT MAY BE CRITICAL TO PATIENT CARE. The findings were verbally communicated via telephone conference with Dr. Rubio at 6:31 PM CDT on 07/18/2024. The findings were acknowledged and understood. Gallbladder Ultrasound 07/18/24 17:57 IMPRESSION: 1. Cholelithiasis. Distended gallbladder. If there is clinical concern for acute cholecystitis, then consider further evaluation with HIDA scan. 2. Dilated common bile duct without obvious shadowing stone. Findings may be further assessed with MRCP if clinically indicated. 3. Suboptimal evaluation of the pancreas. Laboratory Results WBC 9.97 10^3/uL (3.29-11.43) 07/18/24 16:56 RBC 4.36 10^6/uL (3.85-5.65) 07/18/24 16:56 Hgb 13.70 g/dL (11.27-16.99) 07/18/24 16:56 Hct 42.5 % (36-47) 07/18/24 16:56 MCV 97.5 fl (85-98) 07/18/24 16:56 MCH 31.4 pg (27-33) 07/18/24 16:56 MCHC 32.2 g/dL (30-55) 07/18/24 16:56 RDW 13.1 % (12.1-15.1) 07/18/24 16:56 Plt Count 273 10^3/cmm (157-399) 07/18/24 16:56 MPV 11.7 fL (7.4-10.4) H 07/18/24 16:56 Neut % (Auto) 80.8 % 07/18/24 16:56 Lymph % (Auto) 11.0 % 07/18/24 16:56 Barton % (Auto) 7.1 % 07/18/24 16:56 Eos % (Auto) 0.2 % 07/18/24 16:56 Baso % (Auto) 0.3 % 07/18/24 16:56 Neut # (Auto) 8.05 10^3/uL (1.8-7.7) H 07/18/24 16:56 Lymph # (Auto) 1.1 10^3/uL (0.8-4.8) 07/18/24 16:56 Barton # (Auto) 0.7 10^3/uL (0.2-0.9) 07/18/24 16:56 Eos # (Auto) 0.0 10^3/uL (0.0-0.8) 07/18/24 16:56 Baso # (Auto) 0.0 10^3/uL (0.0-0.1) 07/18/24 16:56 Nucleated RBC % (auto) 0 % 07/18/24 16:56 Nucleated RBCs # 0.0 /100WBC 07/18/24 16:56 Sodium 135 mmol/L (136-145) L 07/18/24 16:56 Potassium 4.2 mmol/L (3.5-5.1) 07/18/24 16:56 Chloride 101 mmol/L (98-107) 07/18/24 16:56 Carbon Dioxide 25 mmol/L (22-29) 07/18/24 16:56 Anion Gap 13.2 (5-19) 07/18/24 16:56 BUN 12 mg/dL (8-23) 07/18/24 16:56 Creatinine 0.8 mg/dL (0.5-0.9) 07/18/24 16:56 GFR Calculation Not Reportable 07/18/24 16:56 Glucose 120 mg/dL (65-115) H 07/18/24 16:56 Calculated Osmolality 281 mOsm/kg (285-295) L 07/18/24 16:56 Calcium 8.8 mg/dL (8.5-10.5) 07/18/24 16:56 Total Bilirubin 1.4 mg/dL (0.15-1.2) H 07/18/24 16:56 AST 47 U/L (0-32) H 07/18/24 16:56 ALT 34 U/L (0-33) H 07/18/24 16:56 Alkaline Phosphatase 136 U/L (35-105) H 07/18/24 16:56 Total Protein 7.2 g/dL (6.6-8.7) 07/18/24 16:56 Albumin 3.8 g/dL (3.5-5.2) 07/18/24 16:56 Globulin 3.4 g/dL (1.3-4.6) 07/18/24 16:56 Lipase 887 U/L (13-60) H 07/18/24 16:56 Urine Color Yellow (Yellow) 07/18/24 19:13 Urine Appearance Clear (CLEAR) 07/18/24 19:13 Urine pH 6.5 (5-7) 07/18/24 19:13 Ur Specific [place] 1.010 (1.005-1.030) 07/18/24 19:13 Urine Protein Trace (Negative) A 07/18/24 19:13 Urine Glucose (UA) Negative (Normal) 07/18/24 19:13 Urine Ketones Negative (Negative) 07/18/24 19:13 Urine Blood 1+ (Negative) A 07/18/24 19:13 Urine Nitrate Negative (Negative) 07/18/24 19:13 Urine Bilirubin Negative (Negative) 07/18/24 19:13 Urine Urobilinogen 1.0 mg/dL (Negative) 07/18/24 19:13 Ur Leukocyte Esterase Negative (Negative) 07/18/24 19:13 Urine RBC 6-10 /hpf (0-2) 07/18/24 19:13 Urine WBC 0-5 /hpf (0-5) 07/18/24 19:13 Ur Squamous Epith Cells 0-5 /hpf (0-5) 07/18/24 19:13 Amorphous Sediment Not Reportable 07/18/24 19:13 Urine Bacteria None seen /hpf (NONE) 07/18/24 19:13 Hyaline Casts 0.40 /lpf 07/18/24 19:13 Discharge Plan Discharge Patient Disposition: Xfer Short-Term Hosp Clinical Impression: Choledocholithiasis Pancreatitis Qualifiers: Chronicity: acute Pancreatitis type: biliary Acute pancreatitis complication: n o infection or necrosis Qualified Code(s): K85.10 - Biliary acute pancreatitis without necrosis or infection Condition: Stable Referrals: Sandro Sanders DO [Primary Care Provider] - Coding Level of Care Code ED Roof Slater for Chg Fwd Documented by User: Raimundo Rubio DO 07/19/24 00:11 HPI - Abdominal Pain 2 General: Chief Complaint: Abdominal Pain Stated Complaint: ABD PAIN Time Seen by Provider: 07/18/24 16:47 Related Data Home Medications Medication Instructions Recorded Confirmed aspirin 81 mg tablet,delayed 81 mg PO DAILY@10/27/23 07/18/24 release lisinopril 20 mg tablet 20 mg PO DAILY@10/27/23 07/18/24 mirtazapine 7.5 mg tablet 7.5 mg PO BEDTIME@10/27/23 07/18/24 Allergies Allergy/AdvReac Type Severity Reaction Status Date / Time egg Allergy Unknown Verified 03/25/24 10:42 lettuce Allergy Unknown Verified 03/25/24 10:42 PFSH ED 2 PFSH: Medical History Dementia Family history of familial adenomatous polyposis Facial contusion Short-term memory loss mild NSTEMI (non-ST elevated myocardial infarction) Syncope History of epilepsy history of grand mal seizures, last ~2014, not on chronic medication Hypertension 2 para 2 Surgical History History of colectomy subtotal colectomy with ileorectal anastomosis performed by Dr Chaney in 1992 due to family history of familial adenomatous polyposis Family History Father CAD (coronary artery disease) age 50 from heart attack Other Familial polyposis Social History Smoking and tobacco/nicotine status: never used tobacco/nicotine Alcohol intake: never Substance/Drug Use: never Household members: family Course 2 Vital Signs: Vital signs: Vital Signs Temperature 98.7 F 07/18/24 16:36 Pulse Rate 59 L 07/18/24 23:07 Respiratory Rate 18 07/18/24 16:36 Blood Pressure 140/63 07/18/24 23:07 Pulse Oximetry 100 07/18/24 23:07 Oxygen Delivery Me thod Room Air 07/18/24 19:16 MDM - Abdominal Pain Medical Decision Making Care transferred to myself at shift change, lab work reviewed revealed total bili 1.4, AST 47 ALT 34, alk phos 136, lipase 887, noncontrasted abdomen pelvis CT showed prominent gallbladder with suggestion of dependent layering gallstones, ultrasound showed cholelithiasis with distended gallbladder with a dilated common bile duct of 1.2 cm. Due to these findings person needs an ERCP/MRCP in someone that can deal with the findings of those test. Patient preferred [facility] in [place]. [facility] was called Dr. Clancy will be the accepting physician to their med/tele floor Dr. Clancy called back and said they thought they had a GI doc front loader residential driver but now there is not one and they will not be able to accept in transfer. [place] does not have an ERCP capabilities, Esteban Rodríguez was called Dr. Savanah RICHARDSON says he is ERCP capable tomorrow but wants her admitted to the hospitalist, Dr. Mosley the hospitalist was notified and accepted to [facility] with telemetry. Lab Data 07/18/24 16:56 07/18/24 16:56 Labs/Radiology: Radiology Impressions Abdomen/Pelvis CT 07/18/24 17:10 IMPRESSION: 1. Prominent gallbladder measuring up to 9.5 x 4.1 cm with suggestion of dependent layering gallstones. If there is clinical concern for acute cholecystitis, then recommend further evaluation with ultrasound and/or HIDA scan. 2. Evaluation of the bowel is limited without the use of IV and oral contrast. There appears to have been prior bowel surgery with possible left hemicolectomy. It is difficult to follow the loops of bowel particularly in the mid abdomen. If there is clinical concern for bowel pathology, then recommend repeat CT scan with IV and oral contrast. 3. Scattered nonspecific lung nodules . Recommend comparison to prior CT scans of the chest if available. Otherwise, Fleischner society recommendations: For patients at low risk (minimal or absent history of smoking and of other known risk factors), no routine follow-up is indicated. For patients at high risk (history of smoking or of other known risk factors), consider optional CT Chest at 12 months. (Reference: Marques) COMMENTS: Consistent with the [employer]'s Incidental Findings Committee white paper (J Am Gladys Radiol 2018): Any incidental renal lesion less than 1 cm or classified as too small to characterize, or any incidental cystic renal lesion characterized as simple-appearing, is likely benign. No follow-up imaging is recommended for these lesions per consensus recommendations based on imaging criteria. REFERENCES: Marques Shepard, et al. Guidelines for Management of Incidental Pulmonary Nodules Detected on CT Images: From the Fleischner Society 2017. Radiology. 2017;284(1):228-243. ADDENDUM: 07/18/24 5203 ADDENDUM: THIS REPORT CONTAINS FINDINGS THAT MAY BE CRITICAL TO PATIENT CARE. The findings were verbally communicated via telephone conference with Dr. Rubio at 6:31 PM CDT on 07/18/2024. The findings were acknowledged and understood. Gallbladder Ultrasound 07/18/24 17:57 IMPRESSION: 1. Cholelithiasis. Distended gallbladder. If there is clinical concern for acute cholecystitis, then consider further evaluation with HIDA scan. 2. Dilated common bile duct without obvious shadowing stone. Findings may be further assessed with MRCP if clinically indicated. 3. Suboptimal evaluation of the pancreas. Laboratory Results WBC 9.97 10^3/uL (3.29-11.43) 07/18/24 16:56 RBC 4.36 10^6/uL (3.85-5.65) 07/18/24 16:56 Hgb 13.70 g/dL (11.27-16.99) 07/18/24 16:56 Hct 42.5 % (36-47) 07/18/24 16:56 MCV 97.5 fl (85-98) 07/18/24 16:56 MCH 31.4 pg (27-33) 07/18/24 16:56 MCHC 32.2 g/dL (30-55) 07/18/24 16:56 RDW 13.1 % (12.1-15.1) 07/18/24 16:56 Plt Count 273 10^3/cmm (157-399) 07/18/24 16:56 MPV 11.7 fL (7.4-10.4) H 07/18/24 16:56 Neut % (Auto) 80.8 % 07/18/24 16:56 Lymph % (Auto) 11.0 % 07/18/24 16:56 Barton % (Auto) 7.1 % 07/18/24 16:56 Eos % (Auto) 0.2 % 07/18/24 16:56 Baso % (Auto) 0.3 % 07/18/24 16:56 Neut # (Auto) 8.05 10^3/uL (1.8-7.7) H 07/18/24 16:56 Lymph # (Auto) 1.1 10^3/uL (0.8-4.8) 07/18/24 16:56 Barton # (Auto) 0.7 10^3/uL (0.2-0.9) 07/18/24 16:56 Eos # (Auto) 0.0 10^3/uL (0.0-0.8) 07/18/24 16:56 Baso # (Auto) 0.0 10^3/uL (0.0-0.1) 07/18/24 16:56 Nucleated RBC % (auto) 0 % 07/18/24 16:56 Nucleated RBCs # 0.0 /100WBC 07/18/24 16:56 Sodium 135 mmol/L (136-145) L 07/18/24 16:56 Potassium 4.2 mmol/L (3.5-5.1) 07/18/24 16:56 Chloride 101 mmol/L (98-107) 07/18/24 16:56 Carbon Dioxide 25 mmol/L (22-29) 07/18/24 16:56 Anion Gap 13.2 (5-19) 07/18/24 16:56 BUN 12 mg/dL (8-23) 07/18/24 16:56 Creatinine 0.8 mg/dL (0.5-0.9) 07/18/24 16:56 GFR Calculation Not Reportable 07/18/24 16:56 Glucose 120 mg/dL (65-115) H 07/18/24 16:56 Calculated Osmolality 281 mOsm/kg (285-295) L 07/18/24 16:56 Calcium 8.8 mg/dL (8.5-10.5) 07/18/24 16:56 Total Bilirubin 1.4 mg/dL (0.15-1.2) H 07/18/24 16:56 AST 47 U/L (0-32) H 07/18/24 16:56 ALT 34 U/L (0-33) H 07/18/24 16:56 Alkaline Phosphatase 136 U/L (35-105) H 07/18/24 16:56 Total Protein 7.2 g/dL (6.6-8.7) 07/18/24 16:56 Albumin 3.8 g/dL (3.5-5.2) 07/18/24 16:56 Globulin 3.4 g/dL (1.3-4.6) 07/18/24 16:56 Lipase 887 U/L (13-60) H 07/18/24 16:56 Urine Color Yellow (Yellow) 07/18/24 19:13 Urine Appearance Clear (CLEAR) 07/18/24 19:13 Urine pH 6.5 (5-7) 07/18/24 19:13 Ur Specific [place] 1.010 (1.005-1.030) 07/18/24 19:13 Urine Protein Trace (Negative) A 07/18/24 19:13 Urine Glucose (UA) Negative (Normal) 07/18/24 19:13 Urine Ketones Negative (Negative) 07/18/24 19:13 Urine Blood 1+ (Negative) A 07/18/24 19:13 Urine Nitrate Negative (Negative) 07/18/24 19:13 Urine Bilirubin Negative (Negative) 07/18/24 19:13 Urine Urobilinogen 1.0 mg/dL (Negative) 07/18/24 19:13 Ur Leukocyte Esterase Negative (Negative) 07/18/24 19:13 Urine RBC 6-10 /hpf (0-2) 07/18/24 19:13 Urine WBC 0-5 /hpf (0-5) 07/18/24 19:13 Ur Squamous Epith Cells 0-5 /hpf (0-5) 07/18/24 19:13 Amorphous Sediment Not Reportable 07/18/24 19:13 Urine Bacteria None seen /hpf (NONE) 07/18/24 19:13 Hyaline Casts 0.40 /lpf 07/18/24 19:13 All radiology interpretation(s) finalized by discharge Discharge Plan Discharge Patient Disposition: Xfer Short-Term Hosp Clinical Impression: Choledocholithiasis Pancreatitis Qualifiers: Chronicity: acute Pancreatitis type: biliary Acute pancreatitis complication: n o infection or necrosis Qualified Code(s): K85.10 - Biliary acute pancreatitis without necrosis or infection Condition: Stable Referrals: Sandro Sanders DO [Primary Care Provider] - Coding Level of Care Code ED Roof Slater for Fortino Sauer
[2024-07-18 17:03] LABS: Basophils % 0.3 %; Eosinophils % 0.2 %; Hematocrit 42.5 % (36-47); Lymphocytes # 1.1 10^3/uL (0.8-4.8); Mean Corpuscular HGB Conc 32.2 g/dL (30-55); Mean Corpuscular Hemoglobin 31.4 pg (27-33); Mean Corpuscular Volume 97.5 fl (85-98); Mean Platelet Volume 11.7 fL (7.4-10.4); Monocytes # 0.7 10^3/uL (0.2-0.9); Monocytes % 7.1 %; Neutrophils # 8.05 10^3/uL (1.8-7.7); Neutrophils % 80.8 %; Nucleated Red Blood Cells % 0 %; Platelet Count 273 10^3/cmm (157-399); Red Blood Count 4.36 10^6/uL (3.85-5.65); Red Cell Distribution Width 13.1 % (12.1-15.1); White Blood Count 9.97 10^3/uL (3.29-11.43)
--- NOTE | 2024-07-18 17:10 | CTR_ITS ---
PROCEDURE INFORMATION: Exam: CT Abdomen And Pelvis Without Contrast Exam date and time: 07/18/2024 5:36 PM Age: 79 years old Clinical indication: Nausea and vomiting; Additional info: Abdominal pain TECHNIQUE: Imaging protocol: Computed tomography of the abdomen and pelvis without contrast. Radiation optimization: All CT scans at this facility use at least one of these dose optimization techniques: automated exposure control; mA and/or kV adjustment per patient size (includes targeted exams where dose is matched to clinical indication); or iterative reconstruction. COMPARISON: None RADIATION DOSE METRICS: Total DLP (mGy-cm): 729 FINDINGS: Limitations: This study is limited without the use of IV contrast, particularly for the evaluation of infection and malignancy. Lungs: Mild bibasilar atelectasis/scar. 0.5 cm lingular segment calcified granuloma. Scattered nonspecific lung nodules are noted including a peripheral 0.3 cm right middle lobe lung nodule best seen on series 3, image 7. Liver: The liver is unremarkable in appearance. Low-density lesions in the left hepatic lobe measuring up to 2 cm in size compatible with cysts but incompletely assessed without the use of IV contrast. Gallbladder and biliary ducts: Prominent gallbladder measuring up to 9.5 x 4.1 cm with suggestion of dependent layering gallstones. Pancreas: Pancreas is unremarkable in appearance. No ductal dilation. Spleen: Scattered calcified splenic granulomas. Adrenal glands: Adrenal glands are unremarkable in appearance. Kidneys and ureters: Kidneys and ureters are unremarkable in appearance. No hydronephrosis. No radio-opaque stone. Left renal parapelvic cysts. Stomach and bowel: Limited evaluation of the bowel without the use of IV contrast. Postsurgical changes are suspected with possible left hemicolectomy. Recommend correlation with surgical history. No evidence bowel obstruction. Appendix: No evidence of appendicitis. Intraperitoneal space: No ascites. Vasculature: Calcified plaque is seen involving the abdominal aorta. Lymph nodes: No abdominal or pelvic lymphadenopathy. Urinary bladder: Bladder unremarkable. Reproductive: Uterus present. Bones/joints: No acute bony abnormality. Soft tissues: Umbilical hernia containing fat. CT/CT abdomen pelvis con [id number] IMPRESSION: 1. Prominent gallbladder measuring up to 9.5 x 4.1 cm with suggestion of dependent layering gallstones. If there is clinical concern for acute cholecystitis, then recommend further evaluation with ultrasound and/or HIDA scan. 2. Evaluation of the bowel is limited without the use of IV and oral contrast. There appears to have been prior bowel surgery with possible left hemicolectomy. It is difficult to follow the loops of bowel particularly in the mid abdomen. If there is clinical concern for bowel pathology, then recommend repeat CT scan with IV and oral contrast. 3. Scattered nonspecific lung nodules . Recommend comparison to prior CT scans of the chest if available. Otherwise, Fleischner society recommendations: For patients at low risk (minimal or absent history of smoking and of other known risk factors), no routine follow-up is indicated. For patients at high risk (history of smoking or of other known risk factors), consider optional CT Chest at 12 months. (Reference: Marques) COMMENTS: Consistent with the [employer]'s Incidental Findings Committee white paper (J Am Gladys Radiol 2018): Any incidental renal lesion less than 1 cm or classified as too small to characterize, or any incidental cystic renal lesion characterized as simple-appearing, is likely benign. No follow-up imaging is recommended for these lesions per consensus recommendations based on imaging criteria. REFERENCES: Marques Shepard et al. Guidelines for Management of Incidental Pulmonary Nodules Detected on CT Images: From the Fleischner Society 2017. Radiology. 2017;284(1):228-243.
[2024-07-18 17:23] LABS: Alanine Aminotransferase 34 U/L (0-33); Albumin Level 3.8 g/dL (3.5-5.2); Alkaline Phosphatase 136 U/L (35-105); Anion Gap 13.2 (5-19); Aspartate Amino Transferase 47 U/L (0-32); Blood Urea Nitrogen 12 mg/dL (8-23); Calcium 8.8 mg/dL (8.5-10.5); Carbon Dioxide 25 mmol/L (22-29); Chloride 101 mmol/L (98-107); Creatinine Clr Calc Pharmacy 52.4032; Globulin 3.4 g/dL (1.3-4.6); Glucose 120 mg/dL (65-115); Osmolality Calculated 281 mOsm/kg (285-295); Potassium 4.2 mmol/L (3.5-5.1); Sodium 135 mmol/L (136-145); Total Bilirubin 1.4 mg/dL (0.15-1.2); Total Protein 7.2 g/dL (6.6-8.7)
[2024-07-18 17:33] LABS: Lipase 887 U/L (13-60)
--- NOTE | 2024-07-18 17:57 | USR_ITS ---
PROCEDURE INFORMATION: Exam: US Abdomen, Limited; Right Upper Quadrant Exam date and time: 07/18/2024 6:16 PM Age: 79 years old Clinical indication: Abdominal pain; Acute; Prior surgery; Surgery date: 6+ months; Surgery type: Colon; Additional info: Elevated lfts TECHNIQUE: Imaging protocol: Real time ultrasound of the abdomen with image documentation. Limited exam focused on the right upper quadrant. COMPARISON: CT abdomen pelvis wo con [id number] 07/18/2024 5:36 PM FINDINGS: Liver: Normal in size and shape. 12.3 cm in length. The hepatic cysts measuring up to 1.8 cm. Gallbladder: Prominent gallbladder measuring 10.6 x 4.3 cm. Gallstones are noted. Biliary ducts: Dilated common bile duct measuring up to 1.2 cm in diameter. Pancreas: Suboptimal evaluation secondary to overlying bowel gas. Right kidney: No mass. No hydronephrosis. Right kidney measures 9.2 cm in length. US/US gall bladder [id number] IMPRESSION: 1. Cholelithiasis. Distended gallbladder. If there is clinical concern for acute cholecystitis, then consider further evaluation with HIDA scan. 2. Dilated common bile duct without obvious shadowing stone. Findings may be further assessed with MRCP if clinically indicated. 3. Suboptimal evaluation of the pancreas.
[2024-07-18 19:02] VITALS: BP 125/57; PULSE 57; O2SAT 96
[2024-07-18 19:16] VITALS: BP 138/60; PULSE 58; O2SAT 99
--- NOTE | 2024-07-18 19:17 | PC.NURSE ---
This nurse took over patient care at shift change from Farnaz HAIR.
[2024-07-18 19:26] LABS: Bilirubin Urine Negative (Negative); Blood Urine 1+ (Negative); Glucose Urine UA Negative (Normal); Ketones Urine Negative (Negative); Leukocyte Esterase Urine Negative (Negative); Nitrate Urine Negative (Negative); Protein Urine Trace (Negative); Urine Appearance Clear (CLEAR); Urine Color Yellow (Yellow); pH Urine 6.5 (5-7)
[2024-07-18 19:31] LABS: Add Urine Microscopic? YES; Bacteria Urine None Seen /hpf; Squamous Epithelial Cell Urine 0-5 /hpf (0-5); WBC Urine 0-5 /hpf (0-5)
[2024-07-18 19:36] LABS: Add Urine Culture? No
[2024-07-18 20:09] VITALS: BP 98/52; PULSE 64; O2SAT 97
[2024-07-18 21:19] VITALS: BP 134/70; PULSE 59; O2SAT 97
[2024-07-18] MEDS: piperacillin-tazobactam 3.375 GM in sodium chloride 0.9% (plus) 50 ML IV (21:56)
--- NOTE | 2024-07-18 22:12 | PC.NURSE ---
Report called to Iris Kapoor RN at [facility]. All questions and concerns were addressed at time of report.
[2024-07-18 23:07] VITALS: BP 140/63; PULSE 59; O2SAT 100
== END 2024-07-18 23:13 | disposition short-term general hospital (02) ==
PROVIDERS: Emergency Provider Family Medicine; PCP Family Medicine
DX: K80.50 Calculus of bile duct without cholangitis or cholecystitis without obstruction (principal); K85.10 Biliary acute pancreatitis without necrosis or infection; G30.9 Alzheimer's disease, unspecified; F02.80 Dementia in other diseases classified elsewhere, unspecified severity, without behavioral disturbance, psychotic disturbance, mood disturbance, and anxiety; I25.2 Old myocardial infarction; I10 Essential (primary) hypertension
CPT/HCPCS: 36415; 74176; 76705; 80053; 81001; 83690; 85025; 96365; 99285; J2543

== ENCOUNTER 2024-07-24 11:44 | Emergency (ER) | payer MEDICARE, OTHER, SELFPAY ==
[2024-07-24 11:55] VITALS: BP 137/71; PULSE 88; TEMP 36.6; O2SAT 94
--- NOTE | 2024-07-24 11:55 | CTR_ITS ---
PROCEDURE INFORMATION: Exam: CT Abdomen And Pelvis With Contrast Exam date and time: 07/24/2024 12:31 PM Age: 79 years old Clinical indication: Abdominal pain; Generalized; Prior surgery; Surgery date: 3-7 days post-operative; Surgery type: Gb; Additional info: Abdominal pain, post op cholecystectomy TECHNIQUE: Imaging protocol: Computed tomography of the abdomen and pelvis with contrast. Radiation optimization: All CT scans at this facility use at least one of these dose optimization techniques: automated exposure control; mA and/or kV adjustment per patient size (includes targeted exams where dose is matched to clinical indication); or iterative reconstruction. Contrast material: OMNI 350; Contrast volume: 100 ml; Contrast route: INTRAVENOUS (IV); COMPARISON: CT abdomen pelvis wo con [id number] 07/18/2024 5:36 PM RADIATION DOSE METRICS: Total DLP (mGy-cm): 655.77 FINDINGS: Tubes, catheters and devices: CBD stent. Lungs: Bilateral lower lobe atelectasis. Pleural spaces: Bilateral pleural effusions. Pleural calcifications in the left lung base. Diaphragm: Small hiatal hernia. Liver: Calcified granuloma in the right hepatic lobe. Stable cysts in the left hepatic lobe measuring up to 2.1 x 2.4 cm. Gallbladder and biliary ducts: Post cholecystectomy. No biliary dilatation. Pancreas: Normal. No ductal dilation. Spleen: Normal. No splenomegaly. Adrenal glands: Normal. No mass. Kidneys and ureters: Normal. No hydronephrosis. Stomach and bowel: Post partial small bowel resection. No bowel dilatation. Appendix: No evidence of appendicitis. Intraperitoneal space: Unremarkable. No free air. No significant fluid collection. Vasculature: Vascular calcifications. Lymph nodes: Unremarkable. No enlarged lymph nodes. Urinary bladder: Unremarkable as visualized. Reproductive: Unremarkable as visualized. Bones/joints: Chronic mild compression deformity of the L5, L3 and L2 vertebral bodies. Soft tissues: Unremarkable. CT/CT abdomen pelvis w con* [id number] IMPRESSION: Post cholecystectomy with CBD stent. Expected pneumobilia. No intra-abdominal collections.
[2024-07-24 12:27] LABS: Basophils # 0.1 10^3/uL (0.0-0.1); Basophils % 0.4 %; Eosinophils # 0.1 10^3/uL (0.0-0.8); Eosinophils % 0.6 %; Hematocrit 39.6 % (36-47); Lymphocytes # 1.3 10^3/uL (0.8-4.8); Lymphocytes % 9.2 %; Mean Corpuscular HGB Conc 30.6 g/dL (30-55); Mean Corpuscular Hemoglobin 31.5 pg (27-33); Mean Corpuscular Volume 103.1 fl (85-98); Mean Platelet Volume 11.4 fL (7.4-10.4); Monocytes # 1.2 10^3/uL (0.2-0.9); Monocytes % 8.8 %; Neutrophils # 11.26 10^3/uL (1.8-7.7); Neutrophils % 80.1 %; Nucleated Red Blood Cells % 0 %; Platelet Count 350 10^3/cmm (157-399); Red Blood Count 3.84 10^6/uL (3.85-5.65); Red Cell Distribution Width 13.8 % (12.1-15.1); White Blood Count 14.05 10^3/uL (3.29-11.43)
[2024-07-24 12:34] VITALS: BP 136/74; PULSE 88; O2SAT 95
[2024-07-24] MEDS: iohexol 350 mg/mL 500 mL Btl (per mL) IV (12:35)
[2024-07-24] MEDS: sodium chloride 0.9% 1,000 ML 999 ML IV (12:41)
[2024-07-24 12:43] LABS: Alanine Aminotransferase 19 U/L (0-33); Albumin Level 3.1 g/dL (3.5-5.2); Alkaline Phosphatase 114 U/L (35-105); Anion Gap 17.6 (5-19); Aspartate Amino Transferase 15 U/L (0-32); Blood Urea Nitrogen 18 mg/dL (8-23); Calcium 8.1 mg/dL (8.5-10.5); Carbon Dioxide 23 mmol/L (22-29); Chloride 103 mmol/L (98-107); Creatinine Clr Calc Pharmacy 51.6892; Globulin 3.7 g/dL (1.3-4.6); Glucose 109 mg/dL (65-115); Lactic Sepsis W/Reflex 2.7 mmol/L (0.5-2.2); Lipase 30 U/L (13-60); Osmolality Calculated 292 mOsm/kg (285-295); Potassium 3.6 mmol/L (3.5-5.1); Sodium 140 mmol/L (136-145); Total Bilirubin 0.5 mg/dL (0.15-1.2); Total Protein 6.8 g/dL (6.6-8.7)
[2024-07-24 13:04] VITALS: BP 117/78; PULSE 97
[2024-07-24 13:17] LABS: Bilirubin Urine 1+ (Negative); Blood Urine 3+ (Negative); Glucose Urine UA Negative (Normal); Ketones Urine 1+ (Negative); Leukocyte Esterase Urine Trace (Negative); Nitrate Urine Positive (Negative); Protein Urine 1+ (Negative); Urine Appearance Clear (CLEAR); Urine Color Dark Yellow (Yellow)
[2024-07-24 13:23] LABS: Add Urine Microscopic? YES; Hyaline Casts Urine 9.91 /lpf; Squamous Epithelial Cell Urine 0-5 /hpf (0-5); WBC Urine 0-5 /hpf (0-5)
[2024-07-24 13:41] LABS: Amorphous Sediment Urine TRACE /hpf; Bacteria Urine 2+ /hpf; Mucus Urine 1+ /hpf; Specific Gravity, Urine 1.038 (1.005-1.030); UA Slide Review UA Slide Review Perf
[2024-07-24 13:42] LABS: Add Urine Culture? Yes; Uric Acid Crystals Urine 0-4 /hpf
[2024-07-24 14:00] VITALS: BP 130/60; PULSE 97; O2SAT 94
[2024-07-24 14:11] LABS: Reflex Lactate Order REFLEX LACTIC ORDERD
[2024-07-24 14:43] VITALS: BP 108/88; PULSE 102; O2SAT 94
--- NOTE | 2024-07-24 15:51 | W.ED.ABDPA2 ---
HPI - Abdominal Pain General: Chief Complaint: Abdominal Pain Stated Complaint: abd pain Time Seen by Provider: 07/24/24 11:47 History of Present Illness: This patient is a 79-year-old white female who presents to the emergency department with abdominal pain. Patient had an ERCP done along with a cholecystectomy [place] around July 18. She has a stent in her common bile duct. Patient states she was discharged without any pain medication. She has noticed a little bit of drainage from her surgical wounds as well. No fever. No vomiting. Bowel movements have been normal. Related Data Home Medications Medication Instructions Recorded Confirmed aspirin 81 mg tablet,delayed 81 mg PO DAILY@10/27/23 07/18/24 release lisinopril 20 mg tablet 20 mg PO DAILY@10/27/23 07/18/24 mirtazapine 7.5 mg tablet 7.5 mg PO BEDTIME@10/27/23 07/18/24 Previous Rx's Medication Instructions Recorded hydrocodone 5 mg-acetaminophen 325 1 tab PO Q4H PRN pain #30 tabs 07/24/24 mg tablet Allergies Allergy/AdvReac Type Severity Reaction Status Date / Time egg Allergy Unknown Verified 07/24/24 12:04 lettuce Allergy Unknown Verified 07/24/24 12:04 Review of Systems General: Reports: 10 or more systems reviewed and unremarkable except in HPI and below GI: Reports: abdominal pain REPLACED BY [facility] PFSH: Medical History Dementia Family history of familial adenomatous polyposis Facial contusion Short-term memory loss mild NSTEMI (non-ST elevated myocardial infarction) Syncope History of epilepsy history of grand mal seizures, last ~2014, not on chronic medication Hypertension 2 para 2 Surgical History History of colectomy subtotal colectomy with ileorectal anastomosis performed by Dr Chaney in 1992 due to family history of familial adenomatous polyposis Family History Father CAD (coronary artery disease) age 50 from heart attack Other Familial polyposis Social History Smoking and tobacco/nicotine status: never used tobacco/nicotine Alcohol intake: never Substance/Drug Use: never Household members: family Physical Exam Const: COMMON NORMALS: no acute distress, patient oriented x3 and no limitations GENERAL APPEARANCE: cooperative and comfortable HENMT: COMMON NORMALS: normocephalic, atraumatic, Normal nasal mucous membranes and turbinates present, moist oral mucous membranes and oropharynx normal HEAD & SCALP: normal to inspection, normocephalic and atraumatic FACE & SINUS: normal facial exam NOSE: Normal nasal mucous membranes and turbinates present Eye: COMMON NORMALS: Equal, round and reactive pupils present, EOMs intact bilaterally and conjunctivae normal GENERAL EYE: appearance normal, both eyes and all related structures CONJUNCTIVA: Yes conjunctivae normal PUPIL: Yes Equal, round and reactive pupils present Neck/C-Spine: COMMON NORMALS: supple and no JVD Chest: COMMONS NORMALS: normal inspection of the chest Resp: COMMON NORMALS: normal respiratory effort and clear to auscultation bilaterally AUSCULTATION: clear to auscultation bilaterally Cardio: COMMON NORMALS: no JVD, regular rate, regular rhythm, No gallops present (Cardio), No murmurs present (Cardio) and No rub (Cardio) RATE: regular rate RHYTHM: regular rhythm GI: COMMON NORMALS: Soft to palpation AUSCULTATION: Yes normoactive bowel sounds PALPATION: Yes Soft to palpation OTHER: Some mild right upper quadrant abdominal pain to palpation. Surgical wounds appear to be healing well. Slight amount of serous drainage. : COMMON NORMALS: Yes no CVA tenderness BLADDER/KIDNEY EXAM: Yes no CVA tenderness Back/Pelvis: COMMON NORMALS: no CVA tenderness and thoracic and lumbar spine normal to inspection Extremity: COMMON NORMALS: normal to inspection Neuro: COMMON NORMALS: patient oriented x3 and CN's II-XII intact bilaterally Psych: COMMON NORMALS: mental status grossly normal, Normal thought process present and cooperative THOUGHT PROCESS: Normal thought process present Skin: COMMON NORMALS: no rashes or lesions noted, turgor normal and no jaundice GENERAL SKIN EXAM: no rashes or lesions noted and turgor normal Course Vital Signs: Vital signs: Vital Signs Temperature 97.8 F 07/24/24 11:55 Pulse Rate 102 H 07/24/24 14:43 Blood Pressure 108/88 07/24/24 14:43 Pulse Oximetry 94 07/24/24 14:43 Oxygen Delivery Me thod Room Air 07/24/24 14:00 MDM - Abdominal Pain Medical Decision Making CBC reveals white blood cell count of 14.1. Alk phos was 114. Lipase 30. Urinalysis does reveal some white blood cells and bacteria may be somewhat contaminated. Lactic acid was 2.7. CT scan of the abdomen pelvis revealed normal postoperative changes. Stent in the common bile duct. This was read by the radiologist. Patient is currently on cefdinir and Flagyl. Patient was given Dilaudid for pain in the emergency department along with IV fluids and Zofran. She is feeling significantly better. She was discharged in stable condition with a prescription for hydrocodone. We will culture the urine and I told her and her family members that if that does grow out bacteria that is resistant to the cefdinir and Flagyl we will place her on another antibiotic but at this time we will continue those 2. Follow-up with your primary care provider and surgeon. She was discharged in stable condition. Lab Data 07/24/24 12:20 07/24/24 12:20 Labs/Radiology: Radiology Impressions Abdomen/Pelvis CT 07/24/24 11:55 IMPRESSION: Post cholecystectomy with CBD stent. Expected pneumobilia. No intra-abdominal collections. Laboratory Results WBC 14.05 10^3/uL (3.29-11.43) H 07/24/24 12:20 RBC 3.84 10^6/uL (3.85-5.65) L 07/24/24 12:20 Hgb 12.10 g/dL (11.27-16.99) 07/24/24 12:20 Hct 39.6 % (36-47) 07/24/24 12:20 MCV 103.1 fl (85-98) H 07/24/24 12:20 MCH 31.5 pg (27-33) 07/24/24 12:20 MCHC 30.6 g/dL (30-55) 07/24/24 12:20 RDW 13.8 % (12.1-15.1) 07/24/24 12:20 Plt Count 350 10^3/cmm (157-399) 07/24/24 12:20 MPV 11.4 fL (7.4-10.4) H 07/24/24 12:20 Neut % (Auto) 80.1 % 07/24/24 12:20 Lymph % (Auto) 9.2 % 07/24/24 12:20 [place] % (Auto) 8.8 % 07/24/24 12:20 Eos % (Auto) 0.6 % 07/24/24 12:20 Baso % (Auto) 0.4 % 07/24/24 12:20 Neut # (Auto) 11.26 10^3/uL (1.8-7.7) H 07/24/24 12:20 Lymph # (Auto) 1.3 10^3/uL (0.8-4.8) 07/24/24 12:20 Lynn # (Auto) 1.2 10^3/uL (0.2-0.9) H 07/24/24 12:20 Eos # (Auto) 0.1 10^3/uL (0.0-0.8) 07/24/24 12:20 Baso # (Auto) 0.1 10^3/uL (0.0-0.1) 07/24/24 12:20 Nucleated RBC % (auto) 0 % 07/24/24 12:20 Nucleated RBCs # 0.0 /100WBC 07/24/24 12:20 Sodium 140 mmol/L (136-145) 07/24/24 12:20 Potassium 3.6 mmol/L (3.5-5.1) 07/24/24 12:20 Chloride 103 mmol/L (98-107) 07/24/24 12:20 Carbon Dioxide 23 mmol/L (22-29) 07/24/24 12:20 Anion Gap 17.6 (5-19) 07/24/24 12:20 BUN 18 mg/dL (8-23) 07/24/24 12:20 Creatinine 0.7 mg/dL (0.5-0.9) 07/24/24 12:20 GFR Calculation Not Reportable 07/24/24 12:20 Glucose 109 mg/dL (65-115) 07/24/24 12:20 Calculated Osmolality 292 mOsm/kg (285-295) 07/24/24 12:20 Lactic Acid 2.7 mmol/L (0.5-2.2) H 07/24/24 12:20 Calcium 8.1 mg/dL (8.5-10.5) L 07/24/24 12:20 Total Bilirubin 0.5 mg/dL (0.15-1.2) 07/24/24 12:20 AST 15 U/L (0-32) 07/24/24 12:20 ALT 19 U/L (0-33) 07/24/24 12:20 Alkaline Phosphatase 114 U/L (35-105) H 07/24/24 12:20 Total Protein 6.8 g/dL (6.6-8.7) 07/24/24 12:20 Albumin 3.1 g/dL (3.5-5.2) L 07/24/24 12:20 Globulin 3.7 g/dL (1.3-4.6) 07/24/24 12:20 Lipase 30 U/L (13-60) 07/24/24 12:20 Urine Color Dark yellow (Yellow) A 07/24/24 13: Urine Appearance Clear (CLEAR) 07/24/24 13: Urine pH 6.0 (5-7) 07/24/24 13: Ur Specific [place] 1.038 (1.005-1.030) H 07/24/24 13:01 Urine Protein 1+ (Negative) A 07/24/24 13: Urine Glucose (UA) Negative (Normal) 07/24/24 13: Urine Ketones 1+ (Negative) H 07/24/24 13: Urine Blood 3+ (Negative) A 07/24/24 13: Urine Nitrate Positive (Negative) A 07/24/24 13: Urine Bilirubin 1+ (Negative) H 07/24/24 13: Urine Urobilinogen 1.0 mg/dL (Negative) 07/24/24 13:01 Ur Leukocyte Esterase Trace (Negative) A 07/24/24 13:01 Urine RBC 11-20 /hpf (0-2) H 07/24/24 13:01 Urine WBC 0-5 /hpf (0-5) 07/24/24 13:01 Ur Squamous Epith Cells 0-5 /hpf (0-5) 07/24/24 13:01 Uric Acid Crystals 0-4 /hpf 07/24/24 13:01 Amorphous Sediment Trace /hpf 07/24/24 13:01 Urine Bacteria 2+ /hpf (NONE) H 07/24/24 13:01 Hyaline Casts 9.91 /lpf 07/24/24 13:01 Urine Mucus 1+ /hpf 07/24/24 13:01 All radiology interpretation(s) finalized by discharge Discharge Plan Discharge Patient Disposition: Home Clinical Impression: Post-operative pain Condition: Stable Prescriptions: New hydrocodone-acetaminophen 5-325 mg tablet 1 tab PO Q4H PRN (Reason: pain) Qty: 30 0RF No Action lisinopril 20 mg tablet 20 mg PO DAILY@08 aspirin 81 mg tablet,delayed release (DR/EC) 81 mg PO DAILY@08 mirtazapine 7.5 mg tablet 7.5 mg PO BEDTIME@20 Discharge Orders: Discharge ED (Routine); Ordered 07/24/24 Ordered By: Mack Queen Referrals: Robe Wagner MD [Primary Care Provider] - Patient Instructions: Opioid Safety, Pain Management Coding Level 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
== END 2024-07-24 14:40 | disposition home or self-care (01) ==
PROVIDERS: Emergency Provider Emergency Medicine; PCP Family Medicine
DX: G89.18 Other acute postprocedural pain (principal); Z79.82 Long term (current) use of aspirin; F03.90 Unspecified dementia, unspecified severity, without behavioral disturbance, psychotic disturbance, mood disturbance, and anxiety; I25.2 Old myocardial infarction; I10 Essential (primary) hypertension
CPT/HCPCS: 74177; 80053; 81001; 83605; 83690; 85025; 87086; 99285; J7030

== ENCOUNTER 2024-07-31 09:28 | Inpatient (IN) | payer MEDICARE, OTHER, SELFPAY ==
[2024-07-31] VITALS (12 sets, daily range): BP systolic 121–161; BP diastolic 59–93; PULSE 75–95; RESP 15–19; TEMP 35.7–37; O2SAT 90–96; BMI 30.6
--- NOTE | 2024-07-31 09:46 | XRR_ITS ---
PROCEDURE INFORMATION: Exam: XR Chest Exam date and time: 07/31/2024 9:49 AM Age: 79 years old Clinical indication: Shortness of breath; Additional info: SOB TECHNIQUE: Imaging protocol: Radiologic exam of the chest. Views: 1 view. COMPARISON: CR XR chest 1V portable [id number] 10/27/2023 12:41 PM FINDINGS: Lungs: Unremarkable. No consolidation. Pleural spaces: Tiny bilateral pleural effusions. Heart/Mediastinum: Unremarkable. No cardiomegaly. Bones/joints: Unremarkable. XR/XR chest 1V portable [id number] IMPRESSION: Tiny bilateral pleural effusions suspected, otherwise clear chest.
--- NOTE | 2024-07-31 09:47 | ED_ITS ---
HPI - SOB/Dyspnea 2 General: Chief Complaint: Shortness of Breath/Dyspnea Stated Complaint: SOB Time Seen by Provider: 07/31/24 09:32 Source: patient, family and EMS Mode of arrival: EMS Limitations: no limitations History of Present Illness: HPI Narrative: 79-year-old female is here from [facility] living was concerned that they heard crackles on her exam she had some slight hypoxia as well her pulse ox here is 91% on room air she had had an oxycodone this morning she is awake and answering my questions she denies any cough denies any fever family denies any recent cough either she has had a recent cholecystectomy. Associated symptoms: Deny abdominal pain, chest pain, fever(s), nausea or vomiting Related Data Home Medications Medication Instructions Recorded Confirmed aspirin 81 mg tablet,delayed 81 mg PO DAILY@10/27/23 07/18/24 release lisinopril 20 mg tablet 20 mg PO DAILY@10/27/23 07/18/24 mirtazapine 7.5 mg tablet 7.5 mg PO BEDTIME@10/27/23 07/18/24 Previous Rx's Medication Instructions Recorded hydrocodone 5 mg-acetaminophen 325 1 tab PO Q4H PRN pain #30 tabs 07/24/24 mg tablet Allergies Allergy/AdvReac Type Severity Reaction Status Date / Time egg Allergy Unknown Verified 07/24/24 12:04 lettuce Allergy Unknown Verified 07/24/24 12:04 Review of Systems 2 Const: Denies: fever(s), chills, body aches or change in appetite ENMT: Denies: throat pain or dental pain Card: Denies: chest pain Resp: Denies: dyspnea GI: Denies: abdominal pain, nausea, vomiting or diarrhea Musc: Denies: neck pain or back pain Skin/Breast: Denies: rash Neuro: Denies: headache(s) PFSH ED 2 PFSH: Medical History (Updated 07/31/24 @ 13:58 by Janina Walsh MD) Dementia Family history of familial adenomatous polyposis Facial contusion Short-term memory loss mild NSTEMI (non-ST elevated myocardial infarction) Syncope History of epilepsy history of grand mal seizures, last ~2014, not on chronic medication Hypertension 2 para 2 Surgical History (Updated 07/31/24 @ 13:56 by Wil Luis DO) Status post endoscopic retrograde cholangiopancreatography Status post cholecystectomy History of colectomy subtotal colectomy with ileorectal anastomosis performed by Dr Chaney in 1992 due to family history of familial adenomatous polyposis Family History Father CAD (coronary artery disease) age 50 from heart attack Other Familial polyposis Social History Smoking and tobacco/nicotine status: never used tobacco/nicotine Alcohol intake: never Substance/Drug Use: never Household members: family Physical Exam 2 Const: COMMON NORMALS: no acute distress, patient oriented x3 and healthy appearing HENMT: COMMON NORMALS: normocephalic and atraumatic HEAD & SCALP: n ormocephalic and atraumatic Eye: COMMON NORMALS: conjunctivae normal CONJUNCTIVA: Yes conjunctivae normal Neck/C-Spine: COMMON NORMALS: full ROM and supple Chest: COMMONS NORMALS: normal inspection of the chest Resp: COMMON NORMALS: normal respiratory effort, No retractions, No use of accessory muscles and clear to auscultation bilaterally AUSCULTATION: clear to auscultation bilaterally Cardio: COMMON NORMALS: regular rate, regular rhythm and No murmurs present (Cardio) RATE: regular rate RHYTHM: regular rhythm Extremity: COMMON NORMALS: normal to inspection and full ROM Neuro: COMMON NORMALS: patient oriented x3, moves all extremities and no focal motor deficits Psych: COMMON NORMALS: mental status grossly normal, Normal thought process present and cooperative THOUGHT PROCESS: Normal thought process present Skin: COMMON NORMALS: no rashes or lesions noted and no wounds GENERAL SKIN EXAM: no rashes or lesions noted Course 2 Vital Signs: Vital signs: Vital Signs Temperature 98.6 F 07/31/24 09:34 Pulse Rate 89 07/31/24 10:12 Respiratory Rate 17 07/31/24 09:34 Blood Pressure 154/87 07/31/24 13:00 Pulse Oximetry 91 07/31/24 12:35 Oxygen Delivery Me thod Nasal Cannula 07/31/24 09:34 Oxygen Flow Rate 2 07/31/24 09:34 MDM - SOB/Dyspnea Medical Decision Making Patient presents here with some dyspnea she is found to have pulmonary emboli CT scan of her belly showed a biloma versus abscess patient seen by Dr. Luis who is consulted spoke to hospitalist as well give Lovenox and with antibiotics and will admit Medical Records I reviewed the patient's medical records. Lab Data I reviewed the patient's lab results. 07/31/24 10:04 07/31/24 10:04 Labs/Radiology: Radiology Impressions Chest X-Ray 07/31/24 09:46 IMPRESSION: Tiny bilateral pleural effusions suspected, otherwise clear chest. Chest/Abdomen/Pelvis CT 07/31/24 10:25 IMPRESSION: 1. Bilateral pulmonary emboli in mildly elevated RV LV ratio measuring 1.1 2. Small right pleural effusion and atelectatic changes of the lung bases. 3. Small sub 4 mm noncalcified pulmonary nodules with follow-up recommendations as above. IMPRESSION: 1. New fluid collection in the gallbladder fossa extending inferiorly down the right paracolic gutter with measurements as above. The fluid collection is concerning for a biloma versus abscess. Liquified hematoma is considered unlikely. 2. Hepatic steatosis. 3. Rectal fecal impaction. COMMENTS: THIS REPORT CONTAINS FINDINGS THAT MAY BE CRITICAL TO PATIENT CARE. The exam findings were verbally communicated by me to JANINA WALSH via telephone conference at 11:25 AM CDT on 07/31/2024. The findings were acknowledged and understood. Laboratory Results WBC 18.37 10^3/uL (3.29-11.43) H 07/31/24 10:04 RBC 3.94 10^6/uL (3.85-5.65) 07/31/24 10:04 Hgb 12.20 g/dL (11.27-16.99) 07/31/24 10:04 Hct 38.0 % (36-47) 07/31/24 10:04 MCV 96.4 fl (85-98) 07/31/24 10:04 MCH 31.0 pg (27-33) 07/31/24 10:04 MCHC 32.1 g/dL (30-55) 07/31/24 10:04 RDW 13.4 % (12.1-15.1) 07/31/24 10:04 Plt Count 370 10^3/cmm (157-399) 07/31/24 10:04 MPV 10.4 fL (7.4-10.4) 07/31/24 10:04 Neut % (Auto) 88.4 % 07/31/24 10:04 Lymph % (Auto) 2.7 % 07/31/24 10:04 [place] % (Auto) 7.3 % 07/31/24 10:04 Eos % (Auto) 0.0 % 07/31/24 10:04 Baso % (Auto) 0.2 % 07/31/24 10:04 Neut # (Auto) 16.23 10^3/uL (1.8-7.7) H 07/31/24 10:04 Lymph # (Auto) 0.5 10^3/uL (0.8-4.8) L 07/31/24 10:04 [place] # (Auto) 1.4 10^3/uL (0.2-0.9) H 07/31/24 10:04 Eos # (Auto) 0.0 10^3/uL (0.0-0.8) 07/31/24 10:04 Baso # (Auto) 0.0 10^3/uL (0.0-0.1) 07/31/24 10:04 Nucleated RBC % (auto) 0 % 07/31/24 10:04 Nucleated RBCs # 0.0 /100WBC 07/31/24 10:04 ESR 53 mm/hr (0-15) H 07/31/24 10:04 Sodium 136 mmol/L (136-145) 07/31/24 10:04 Potassium 3.8 mmol/L (3.5-5.1) 07/31/24 10:04 Chloride 102 mmol/L (98-107) 07/31/24 10:04 Carbon Dioxide 22 mmol/L (22-29) 07/31/24 10:04 Anion Gap 16.6 (5-19) 07/31/24 10:04 BUN 11 mg/dL (8-23) 07/31/24 10:04 Creatinine 0.7 mg/dL (0.5-0.9) 07/31/24 10:04 GFR Calculation Not Reportable 07/31/24 10:04 Glucose 127 mg/dL (65-115) H 07/31/24 10:04 Calculated Osmolality 281 mOsm/kg (285-295) L 07/31/24 10:04 Lactic Acid 1.5 mmol/L (0.5-2.2) 07/31/24 10:04 Calcium 8.2 mg/dL (8.5-10.5) L 07/31/24 10:04 Total Bilirubin 0.7 mg/dL (0.15-1.2) 07/31/24 10:04 AST 23 U/L (0-32) 07/31/24 10:04 ALT 22 U/L (0-33) 07/31/24 10:04 Alkaline Phosphatase 128 U/L (35-105) H 07/31/24 10:04 Troponin T Baseline 106 ng/L (0-10) H* 07/31/24 10:04 Troponin T 120 Minute 89.95 ng/L (0-10) H 07/31/24 12:06 Delta Troponin T -16.05 ABS# (0-10) L 07/31/24 12:06 NT-Pro-B Natriuret Pep 2108 pg/mL (0-450) H 07/31/24 10:04 Total Protein 6.6 g/dL (6.6-8.7) 07/31/24 10:04 Albumin 3.1 g/dL (3.5-5.2) L 07/31/24 10:04 Globulin 3.4 g/dL (1.3-4.6) 07/31/24 10:04 Urine Color Dark yellow (Yellow) A 07/31/24 10:40 Urine Appearance Cloudy (CLEAR) A 07/31/24 10:40 Urine pH 6.0 (5-7) 07/31/24 10:40 Ur Specific [place] 1.018 (1.005-1.030) 07/31/24 10:40 Urine Protein 2+ (Negative) A 07/31/24 10:40 Urine Glucose (UA) Negative (Normal) 07/31/24 10:40 Urine Ketones 2+ (Negative) H 07/31/24 10:40 Urine Blood 2+ (Negative) A 07/31/24 10:40 Urine Nitrate Negative (Negative) 07/31/24 10:40 Urine Bilirubin Negative (Negative) 07/31/24 10:40 Urine Urobilinogen 1.0 mg/dL (Negative) 07/31/24 10:40 Ur Leukocyte Esterase 1+ (Negative) A 07/31/24 10:40 Urine RBC 11-20 /hpf (0-2) H 07/31/24 10:40 Urine WBC 51-100 /hpf (0-5) H 07/31/24 10:40 Ur Squamous Epith Cells 0-5 /hpf (0-5) 07/31/24 10:40 Amorphous Sediment Not Reportable 07/31/24 10:40 Urine Bacteria None seen /hpf (NONE) 07/31/24 10:40 Hyaline Casts 1.65 /lpf 07/31/24 10:40 All radiology interpretation(s) finalized by discharge Discharge Plan Discharge Patient Disposition: Admitted As Inpatient Admit Provider: Amber Orosco Clinical Impression: Pulmonary embolism Condition: Stable Coding Level of Care Code 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
[2024-07-31 10:12] LABS: Basophils % 0.2 %; Lymphocytes # 0.5 10^3/uL (0.8-4.8); Lymphocytes % 2.7 %; Mean Corpuscular HGB Conc 32.1 g/dL (30-55); Mean Corpuscular Volume 96.4 fl (85-98); Mean Platelet Volume 10.4 fL (7.4-10.4); Monocytes # 1.4 10^3/uL (0.2-0.9); Monocytes % 7.3 %; Neutrophils # 16.23 10^3/uL (1.8-7.7); Neutrophils % 88.4 %; Nucleated Red Blood Cells % 0 %; Platelet Count 370 10^3/cmm (157-399); Red Blood Count 3.94 10^6/uL (3.85-5.65); Red Cell Distribution Width 13.4 % (12.1-15.1); White Blood Count 18.37 10^3/uL (3.29-11.43)
--- NOTE | 2024-07-31 10:25 | CTR_ITS ---
PROCEDURE INFORMATION: Exam: CTA Chest With Contrast Exam date and time: 07/31/2024 10:49 AM Age: 79 years old Clinical indication: Abdominal tenderness; Shortness of breath; Prior surgery; Surgery date: 3-7 days post-operative; Surgery type: Choley; Additional info: SOB TECHNIQUE: Imaging protocol: Computed tomographic angiography of the chest with contrast. Exam focused on the arteries. 3D rendering (Not supervised by radiologist): MIP and/or 3D reconstructed images were created by the technologist. Radiation optimization: All CT scans at this facility use at least one of these dose optimization techniques: automated exposure control; mA and/or kV adjustment per patient size (includes targeted exams where dose is matched to clinical indication); or iterative reconstruction. Contrast material: OMNIPAQUE 350; Contrast volume: 100 ml; Contrast route: INTRAVENOUS (IV); COMPARISON: CR (CHEST, ) 07/31/2024 9:49 AM RADIATION DOSE METRICS: Total DLP (mGy-cm): 894.93 FINDINGS: Pulmonary arteries: There are bilateral pulmonary emboli. No evidence of a saddle embolism. Aorta: Unremarkable. No aortic aneurysm. No aortic dissection. Lungs: There is bibasilar atelectasis. There are several small sub 4 mm noncalcified pulmonary nodules in each lung. An example nodule in the right middle lobe measures about 4 mm (series 4, image 32). For patients at low risk (minimal or absent history of smoking and of other known risk factors), no routine follow-up is indicated. For patients at high risk (history of smoking or of other known risk factors), consider optional CT Chest at 12 months. (Reference: Marques) Pleural spaces: Small right pleural effusion. Heart: The heart is normal in size. Heart RV/LV ratio: RV LV ratio = 1.1 (mildly elevated). Coronary arteries: No visible calcified coronary artery disease. Lymph nodes: Unremarkable. No enlarged lymph nodes. Bones/joints: Unremarkable. No acute fracture. Soft tissues: Unremarkable. REFERENCES: Marques Shepard et al. Guidelines for Management of Incidental Pulmonary Nodules Detected on CT Images: From the Fleischner Society 2017. Radiology. 2017;284(1):228-243. PROCEDURE INFORMATION: Exam: CT Abdomen And Pelvis With Contrast Exam date and time: 07/31/2024 10:49 AM Age: 79 years old Clinical indication: Abdominal tenderness; Shortness of breath; Prior surgery; Surgery date: 3-7 days post-operative; Surgery type: Choley; Additional info: SOB TECHNIQUE: Imaging protocol: Computed tomography of the abdomen and pelvis with contrast. Radiation optimization: All CT scans at this facility use at least one of these dose optimization techniques: automated exposure control; mA and/or kV adjustment per patient size (includes targeted exams where dose is matched to clinical indication); or iterative reconstruction. Contrast material: OMNIPAQUE 350; Contrast volume: 100 ml; Contrast route: INTRAVENOUS (IV); COMPARISON: CT abdomen pelvis w con* [id number] 07/24/2024 12:31 PM RADIATION DOSE METRICS: Total DLP (mGy-cm): 894.93 FINDINGS: Liver: Hepatic steatosis. There are stable hepatic cysts. Gallbladder and biliary ducts: Cholecystectomy. There is a common bile duct stent present. Stable pneumobilia. Pancreas: Normal. No ductal dilation. Spleen: Normal. No splenomegaly. Adrenal glands: Normal. No mass. Kidneys and ureters: The kidneys are normal in appearance. There are stable bilateral parapelvic cysts. No evidence of hydronephrosis or hydroureter. No nephroureteral calculi are identified. Stomach and bowel: The small bowel loops are not thickened and are nondilated. Previous small bowel surgery. There is a rectal fecal impaction. Appendix: The appendix is not identified, but there are no inflammatory changes in its expected region. Intraperitoneal space: There is a new fluid collection in the gallbladder fossa extending inferiorly down the right paracolic gutter. The main portion of the collection in the gallbladder fossa measures about 5.2 x 3.6 cm. The main portion of the fluid collection in the right paracolic gutter measures 4.5 x 2.3 cm. The findings are concerning for a postop biloma versus abscess. Vasculature: Unremarkable. No abdominal aortic aneurysm. Lymph nodes: Unremarkable. No enlarged lymph nodes. Urinary bladder: Unremarkable as visualized. Reproductive: Unremarkable as visualized. Bones/joints: Stable mild compression fracture deformities at L2 and L5. Soft tissues: Unremarkable. CT/CT angio chest w abd pel w con IMPRESSION: 1. Bilateral pulmonary emboli in mildly elevated RV LV ratio measuring 1.1 2. Small right pleural effusion and atelectatic changes of the lung bases. 3. Small sub 4 mm noncalcified pulmonary nodules with follow-up recommendations as above. IMPRESSION: 1. New fluid collection in the gallbladder fossa extending inferiorly down the right paracolic gutter with measurements as above. The fluid collection is concerning for a biloma versus abscess. Liquified hematoma is considered unlikely. 2. Hepatic steatosis. 3. Rectal fecal impaction. COMMENTS: THIS REPORT CONTAINS FINDINGS THAT MAY BE CRITICAL TO PATIENT CARE. The exam findings were verbally communicated by me to JANINA WALSH via telephone conference at 11:25 AM CDT on 07/31/2024. The findings were acknowledged and understood.
[2024-07-31 10:30] LABS: Chloride 102 mmol/L (98-107); Globulin 3.4 g/dL (1.3-4.6); Potassium 3.8 mmol/L (3.5-5.1); Sodium 136 mmol/L (136-145); Total Bilirubin 0.7 mg/dL (0.15-1.2)
[2024-07-31 10:43] LABS: Albumin Level 3.1 g/dL (3.5-5.2); Alkaline Phosphatase 128 U/L (35-105); Anion Gap 16.6 (5-19); Blood Urea Nitrogen 11 mg/dL (8-23); Calcium 8.2 mg/dL (8.5-10.5); Carbon Dioxide 22 mmol/L (22-29); Glucose 127 mg/dL (65-115); Osmolality Calculated 281 mOsm/kg (285-295); Total Protein 6.6 g/dL (6.6-8.7)
[2024-07-31 10:45] LABS: Bilirubin Urine Negative (Negative); Blood Urine 2+ (Negative); Glucose Urine UA Negative (Normal); Ketones Urine 2+ (Negative); Leukocyte Esterase Urine 1+ (Negative); Nitrate Urine Negative (Negative); Protein Urine 2+ (Negative); Specific Gravity, Urine 1.018 (1.005-1.030); Urine Appearance Cloudy (CLEAR); Urine Color Dark Yellow (Yellow)
[2024-07-31 10:48] LABS: Alanine Aminotransferase 22 U/L (0-33); Aspartate Amino Transferase 23 U/L (0-32)
[2024-07-31 10:50] LABS: Add Urine Microscopic? YES; Bacteria Urine None Seen /hpf; Hyaline Casts Urine 1.65 /lpf; Squamous Epithelial Cell Urine 0-5 /hpf (0-5); WBC Urine 51-100 /hpf (0-5)
[2024-07-31] MEDS: iohexol 350 mg/mL 500 mL Btl (per mL) IV (10:55)
[2024-07-31 11:01] LABS: Add Urine Culture? Yes
--- NOTE | 2024-07-31 11:05 | ECG_ITS ---
[email or web address] Test Date: 2024-07-31 Pat Name: Ester Beasley Department: Room: Gender: Female Sales Account Manager: : 1945 Requested By: Purvi Burk Order Number: [id number] Reading MD: ARSALAN BENNETT Measurements Intervals [place] Rate: 85 P: 65 FL: 169 QRS: -18 QRSD: 88 T: 7 QT: 375 QTc: 448 Interpretive Statements SINUS RHYTHM WITH OCCASIONAL SUPRAVENTRICULAR PREMATURE COMPLEXES LEFT VENTRICULAR HYPERTROPHY AND ST-T CHANGE [VOLTAGE CRITERIA PLUS ST/T ABNORMALITY] POSSIBLE ANTERIOR MYOCARDIAL INFARCTION , OF INDETERMINATE AGE [30 ms Q WAVE IN V3/V4, OR R < 0.2 mV IN V4] Compared to ECG 10/27/2023 12:31:31 No significant changes Electronically Signed On 08-02-2024 21:03:34 CDT by ARSALAN BENNETT [email or web address]
[2024-07-31 11:31] LABS: Troponin(5th) Baseline 106 ng/L (0-10)
[2024-07-31] MEDS: cefTRIAXone 1,000 mg SDV 1000 MG IVP (11:31)
[2024-07-31 11:32] LABS: NT Pro B Type Natriuretic Pept 2108 pg/mL (0-450)
[2024-07-31] MEDS: piperacillin-tazobactam 3.375 GM in sodium chloride 0.9% (plus) 50 ML IV ×2 (12:29→17:37)
[2024-07-31 12:39] LABS: Troponin 5 2HR 89.95 ng/L (0-10)
[2024-07-31 12:43] LABS: Troponin 5 2HR Delta -16.05 ABS# (0-10)
[2024-07-31] MEDS: enoxaparin 80 mg/0.8 mL Syringe 70 MG SUBCUT (12:47)
[2024-07-31 13:06] LABS: Lactic Sepsis W/Reflex 1.5 mmol/L (0.5-2.2)
--- NOTE | 2024-07-31 13:30 | P.HP_ITS ---
Providers/Chief Complaint 2 Admitting Physician: Amber Orosco MD Primary Care Provider: Robe Wagner MD Chief Complaint: SOB History of Present Illness Ester Beasley is a 79 year old female with past medical history of dementia, FAP, epilepsy, hypertension currently on a memory unit at [place] presented to the hospital with complaint of rattling in lungs as per nursing staff. There were concern for pneumonia therefore sent her to the hospital. Recently however she has not been eating and states she wants to . Daughter states that she has been saying this ever since her dad . In the past she has attempted to commit suicide by holding a gun to her head however this was years ago. Currently she is not suicidal. She has been complaining of abdominal pain since last Thursday and has been given oxycodone for the pain as per the daughter. Denies nausea vomiting. Unsure when the last bowel movement was. She states she had a biliary stent placed on 07/20/2007/01/2024 at [facility] subsequently the next day 07/21 cholecystectomy was performed and she was discharged home 07/22. Since she has been home she has not been eating. Daughter does state that lately patient has had worsening lower extremity swelling bilaterally. Patient has baseline confused history was obtained from daughter who was at bedside. ER course: Arrival CT chest abdomen pelvis was done which showed bilateral pulmonary emboli with mildly elevated RV LV ratio measuring 1.1 small right pleural effusion, small sub-4 mm noncalcified pulmonary nodules. New fluid collection in gallbladder fossa extending inferiorly down the right paracolic gutter with measurements as above. The fluid collection is concerning for biloma versus abscess. Liquefied hematoma is considered unlikely, hepatic steatosis, rectal fecal impaction. We do not have interventional radiology available today however jonn discussed with Dr. Piper over the phone who is requesting for a HIDA scan transient between a biloma versus abscess. Close with housekeeper/laundry assistant, HIDA scan cannot be done today. Discussed with daughter that it will be done tomorrow morning and she is okay with that. They would like to stay at this hospital and do not want to transfer to [place]. Medications/Allergies Home Medications Medication Instructions Recorded Confirmed Last Taken Type aspirin 81 mg tablet,delayed 81 mg PO DAILY@08 10/27/23 07/18/24 07/18/24 History release lisinopril 20 mg tablet 20 mg PO DAILY@08 10/27/23 07/18/24 07/18/24 History mirtazapine 7.5 mg tablet 7.5 mg PO BEDTIME@10/27/23 07/18/24 07/18/24 History hydrocodone 5 mg-acetaminophen 325 1 tab PO Q4H PRN pain #30 tabs 07/24/24 Unknown Rx mg tablet Allergies Allergy/AdvReac Type Severity Reaction Status Date / Time egg Allergy Unknown Verified 07/24/24 12:04 lettuce Allergy Unknown Verified 07/24/24 12:04 PFSH Acute 2 PFSH: Medical History Dementia Family history of familial adenomatous polyposis Facial contusion Short-term memory loss mild NSTEMI (non-ST elevated myocardial infarction) Syncope History of epilepsy history of grand mal seizures, last ~2014, not on chronic medication Hypertension 2 para 2 Surgical History Status post endoscopic retrograde cholangiopancreatography Status post cholecystectomy History of colectomy subtotal colectomy with ileorectal anastomosis performed by Dr Chaney in 1992 due to family history of familial adenomatous polyposis Family History Father CAD (coronary artery disease) age 50 from heart attack Other Familial polyposis Social History Smoking and tobacco/nicotine status: never used tobacco/nicotine Alcohol intake: never Substance/Drug Use: never Household members: family Vitals/I&O/Wt Last Vital Signs Temp 98.6 F 07/31/24 09:34 Pulse 89 07/31/24 10:12 Resp 17 07/31/24 09:34 BP 154/87 07/31/24 13:00 Pulse Ox 91 07/31/24 12:35 O2 Del Method Nasal Cannula 07/31/24 09:34 O2 Flow Rate 2 07/31/24 09:34 Physical Exam 2 Narrative: No acute distress Normal S1-S2 Confused. States I am busy and sleeping right now do not bother me. ? Abdomen soft nontender to palpation Bilateral lower extremity edema 2+ Lungs clear to auscultation bilaterally no wheezes no rhonchi Currently on room air saturating 92% Alert to self. Did not want to answer any more questions. Data 07/31/24 10:04 07/31/24 10:04 A&P Assessment and plan (1) Hypertension: Qualifiers: Hypertension type: primary hypertension Qualified Code(s): I10 - Essential (primary) hypertension (2) Cardiovascular disease: (3) Pulmonary embolism: (4) Status post cholecystectomy: (5) Status post endoscopic retrograde cholangiopancreatography: (6) Intra-abdominal fluid collection: (7) CVA (cerebral vascular accident): (8) Alzheimer's dementia without behavioral disturbance: (9) History of seizures: (10) Abscess: Plan #Cholecystectomy postop day 10 #Status post biliary stent via ERCP 07/20 # Intra-abdominal fluid collection biloma versus abscess present #UTI #Dementia, currently on memory care unit at [facility] #Bilateral pulmonary embolism #History of seizures #History of stroke #History of epilepsy #History of hypertension - Plan to check HIDA scan in morning. If negative will consult interventional radiology for drain placement as a minimally invasive procedure. ? General Surgery consulted and on board. Recommendations appreciated ? Continue on Zosyn at this time ? Check urine culture ? Check blood cultures ? May continue on clear liquid diet ? N.p.o. except meds after midnight ? Patient did receive therapeutic Lovenox dose x 1 in the ER. Next dose would be due around midnight. At that time we will start heparin drip in anticipation of IR drain in AM. Will stop heparin drip 4 hours prior to procedure. ? Check sputum Gram stain culture ? Patient is on room air at this time. Pneumonia ruled out ? Going forward patient will need Eliquis at discharge ? Check echo ? Continue patient's home lisinopril ? Hold aspirin at this time ? Seizure precautions, fall precautions ? Secondary to dementia patient may have sundowners and may require a sitter if that is the case we will order a sitter for the patient. May use Zyprexa 2.5 mg IM or oral twice daily as needed for agitation. DNR/DNI?discussed with patient's daughter. DVT prophylaxis: Patient on therapeutic anticoagulation. Discussed the plan with nursing staff and patient's daughter. Attestations 2 Medical Necessity Statement*: Greater than 2 midnight stay for management of intra-abdominal fluid collection biloma versus abscess. Patient also has been diagnosed with pulmonary embolism requiring anticoagulation at this time. Diagnoses Primary hypertension I10 Hypertension type: primary hypertension Cardiovascular disease I25.10 Pulmonary embolism I26.99 Status post cholecystectomy Z90.49 Status post endoscopic retrograde cholangiopancreatography Z98.890 Intra-abdominal fluid collection R18.8 CVA (cerebral vascular accident) I63.9 Alzheimer's dementia without behavioral disturbance G30.9; F02.80 History of seizures Z87.898 Abscess L02.91
--- NOTE | 2024-07-31 13:52 | P.HP_ITS ---
Providers/Chief Complaint 2 Admitting Physician: Amber Orosco MD Primary Care Provider: Robe Wagner MD Chief Complaint: SOB History of Present Illness Ester Beasley is a 79 year old female with Alzheimer's disease who presented to the hospital from a nursing facility due to hypoxia. Patient is only oriented to person. HPI and review of systems are limited secondary to this. Per chart review, patient underwent laparoscopic cholecystectomy and ERCP less than 2 weeks ago. She presented to the hospital 1 week ago with abdominal pain where a CT of the abdomen pelvis was within normal limits and she was discharged from the ER. Patient does have right upper quadrant abdominal tenderness. A CT abdomen pelvis this time shows a walled off fluid collection in the gallbladder fossa as well as a small to moderate amount of fluid in the right paracolic gutter without rim enhancement. She also has a pulmonary embolus Review of Systems 2 General: Reports: ROS unobtainable due to mental status Medications/Allergies Home Medications Medication Instructions Recorded Confirmed Last Taken Type aspirin 81 mg tablet,delayed 81 mg PO DAILY@10/27/23 07/18/24 07/18/24 History release lisinopril 20 mg tablet 20 mg PO DAILY@10/27/23 07/18/24 07/18/24 History mirtazapine 7.5 mg tablet 7.5 mg PO BEDTIME@10/27/23 07/18/24 07/18/24 History hydrocodone 5 mg-acetaminophen 325 1 tab PO Q4H PRN pain #30 tabs 07/24/24 Unknown Rx mg tablet Allergies Allergy/AdvReac Type Severity Reaction Status Date / Time egg Allergy Unknown Verified 07/24/24 12:04 lettuce Allergy Unknown Verified 07/24/24 12:04 PFSH Acute 2 PFSH: Medical History (Updated 07/31/24 @ 13:56 by Wil Luis DO) Dementia Family history of familial adenomatous polyposis Facial contusion Short-term memory loss mild NSTEMI (non-ST elevated myocardial infarction) Syncope History of epilepsy history of grand mal seizures, last ~2014, not on chronic medication Hypertension 2 para 2 Surgical History (Updated 07/31/24 @ 13:56 by Wil Luis DO) Status post endoscopic retrograde cholangiopancreatography Status post cholecystectomy History of colectomy subtotal colectomy with ileorectal anastomosis performed by Dr Chaney in 1992 due to family history of familial adenomatous polyposis Family History Father CAD (coronary artery disease) age 50 from heart attack Other Familial polyposis Social History Smoking and tobacco/nicotine status: never used tobacco/nicotine Alcohol intake: never Substance/Drug Use: never Household members: family Vitals/I&O/Wt Last Vital Signs Temp 98.6 F 07/31/24 09:34 Pulse 89 07/31/24 10:12 Resp 17 07/31/24 09:34 BP 154/87 07/31/24 13:00 Pulse Ox 91 07/31/24 12:35 O2 Del Method Nasal Cannula 07/31/24 09:34 O2 Flow Rate 2 07/31/24 09:34 07/30/24 07/31/24 07/31/24 22:59 06:59 14:59 Intake Total 50 / 50 Balance 50 / 50 Physical Exam 2 Narrative: General : Patient is well developed , no acute distress, oriented only to person Head : Normal cephalic, a-traumatic. Ears : Pinnae and external canal are normal. Hearing is normal. Eyes : PERRLA, Sclera and injection are normal. No conjunctival discharge. Nose : Mucous membranes are without erythema. Throat : buccal mucosa is normal, gums are without significant recession or hypertrophy. Lungs : Equal chest rise bilaterally, no use of accessory muscles, trachea is midline. Cor : Rate and rhythm are normal. Abdomen : Soft, ND, mild right upper quadrant tenderness, negative Negrete's, no g/r/m. Incisions intact without erythema or exudate Extremities : No edema, no cyanosis or clubbing, dorsalis pedis pulses are present bilaterally, non-tender to palpation of calves. Upper extremities are normal bilaterally. Back : non-tender to palpation, no CVA tenderness. Neuro : CN II - XII intact, Upper and lower extremities have equal and full strength Data 07/31/24 10:04 07/31/24 10:04 Micro: Microbiology 07/31/24 10:04 Blood Culture - Preliminary Blood SPECIMEN COLLECTED A&P Assessment and plan (1) Pulmonary embolism: (2) Intra-abdominal fluid collection: (3) Status post cholecystectomy: (4) Status post endoscopic retrograde cholangiopancreatography: Plan Therapeutic anticoagulation for pulmonary embolus Favor abscess over biloma due to timing of presentation and well-developed wall around the fluid collection. Hospitalist spoke with IR who requested HIDA scan and may do IR drainage tomorrow Clear liquid diet N.p.o. after midnight Will follow Medical management per hospitalist Attestations 2 Medical Necessity Statement*: Per primary Coding Level of Care Code 90475 Diagnoses Pulmonary embolism I26.99 Intra-abdominal fluid collection R18.8 Status post cholecystectomy Z90.49 Status post endoscopic retrograde cholangiopancreatography Z98.890
[2024-07-31 13:55] LABS: Erythrocyte Sedimentation Rate 53 mm/hr (0-15)
--- NOTE | 2024-07-31 13:57 | P.CONIM_ITS ---
Providers/Reason For Consult 2 Consulting Physician/Specialty*: Dr. Wil Luis DO/General Surgery Reason for Consult*: Gallbladder fossa fluid collection status post laparoscopic cholecystectomy and ERCP at an outside facility Attending Physician: Amber Orosco MD Primary Care Provider: Robe Wagner MD History of Present Illness History of Present Illness Ester Beasley is a 79 year old female with Alzheimer's disease who presented to the hospital from a nursing facility due to hypoxia. Patient is only oriented to person. HPI and review of systems are limited secondary to this. Per chart review, patient underwent laparoscopic cholecystectomy and ERCP less than 2 weeks ago. She presented to the hospital 1 week ago with abdominal pain where a CT of the abdomen pelvis was within normal limits and she was discharged from the ER. Patient does have right upper quadrant abdominal tenderness. A CT abdomen pelvis this time shows a walled off fluid collection in the gallbladder fossa as well as a small to moderate amount of fluid in the right paracolic gutter without rim enhancement. She also has a pulmonary embolus Review of Systems 2 General: Reports: ROS unobtainable due to mental status Medications/Allergies Home Medications Medication Instructions Recorded Confirmed Last Taken Type aspirin 81 mg tablet,delayed 81 mg PO DAILY@10/27/23 07/18/24 07/18/24 History release lisinopril 20 mg tablet 20 mg PO DAILY@10/27/23 07/18/24 07/18/24 History mirtazapine 7.5 mg tablet 7.5 mg PO BEDTIME@10/27/23 07/18/24 07/18/24 History hydrocodone 5 mg-acetaminophen 325 1 tab PO Q4H PRN pain #30 tabs 07/24/24 Unknown Rx mg tablet Allergies Allergy/AdvReac Type Severity Reaction Status Date / Time egg Allergy Unknown Verified 07/24/24 12:04 lettuce Allergy Unknown Verified 07/24/24 12:04 PFSH Acute 2 PFSH: Medical History Dementia Family history of familial adenomatous polyposis Facial contusion Short-term memory loss mild NSTEMI (non-ST elevated myocardial infarction) Syncope History of epilepsy history of grand mal seizures, last ~2014, not on chronic medication Hypertension 2 para 2 Surgical History Status post endoscopic retrograde cholangiopancreatography Status post cholecystectomy History of colectomy subtotal colectomy with ileorectal anastomosis performed by Dr Chaney in 1992 due to family history of familial adenomatous polyposis Family History Father CAD (coronary artery disease) age 50 from heart attack Other Familial polyposis Social History Smoking and tobacco/nicotine status: never used tobacco/nicotine Alcohol intake: never Substance/Drug Use: never Household members: family Vitals/I&O/Wt Last Vital Signs Temp 98.6 F 07/31/24 09:34 Pulse 89 07/31/24 10:12 Resp 17 07/31/24 09:34 BP 154/87 07/31/24 13:00 Pulse Ox 91 07/31/24 12:35 O2 Del Method Nasal Cannula 07/31/24 09:34 O2 Flow Rate 2 07/31/24 09:34 07/30/24 07/31/24 07/31/24 22:59 06:59 14:59 Intake Total 50 / 50 Balance 50 / 50 Physical Exam 2 Narrative: General : Patient is well developed , no acute distress, oriented only to person Head : Normal cephalic, a-traumatic. Ears : Pinnae and external canal are normal. Hearing is normal. Eyes : PERRLA, Sclera and injection are normal. No conjunctival discharge. Nose : Mucous membranes are without erythema. Throat : buccal mucosa is normal, gums are without significant recession or hypertrophy. Lungs : Equal chest rise bilaterally, no use of accessory muscles, trachea is midline. Cor : Rate and rhythm are normal. Abdomen : Soft, ND, mild right upper quadrant tenderness, negative Negrete's, no g/r/m. Incisions intact without erythema or exudate Extremities : No edema, no cyanosis or clubbing, dorsalis pedis pulses are present bilaterally, non-tender to palpation of calves. Upper extremities are normal bilaterally. Back : non-tender to palpation, no CVA tenderness. Neuro : CN II - XII intact, Upper and lower extremities have equal and full strength Data 07/31/24 10:04 07/31/24 10:04 Micro: Microbiology 07/31/24 10:04 Blood Culture - Preliminary Blood SPECIMEN COLLECTED A&P Assessment and plan (1) Pulmonary embolism: (2) Intra-abdominal fluid collection: (3) Status post cholecystectomy: (4) Status post endoscopic retrograde cholangiopancreatography: Plan Therapeutic anticoagulation for pulmonary embolus Favor abscess over biloma due to timing of presentation and well-developed wall around the fluid collection. Hospitalist spoke with IR who requested HIDA scan and may do IR drainage tomorrow Clear liquid diet N.p.o. after midnight Will follow Medical management per hospitalist Coding Level of Care Code 90672 Diagnoses Pulmonary embolism I26.99 Intra-abdominal fluid collection R18.8 Status post cholecystectomy Z90.49 Status post endoscopic retrograde cholangiopancreatography Z98.890
[2024-07-31 14:12] LABS: C Reactive Protein 309.5 mg/L (0.0-4.9)
[2024-07-31 14:20] LABS: Procalcitonin 0.31 ng/mL (0-0.5)
--- NOTE | 2024-07-31 14:31 | ECG_ITS ---
[facility] Date: 2024-07[facility]31 Pat Name: Ester Beasley Department: Room: 103 Gender: Female Director Of Regulatory Affairs: : 1945 Requested By: Purvi Burk Order Number: [id number] Reading MD: ARSALAN BENNETT Measurements Intervals [place] Rate: 86 P: 70 [place]: 163 QRS: -13 QRSD: 80 T: -22 QT: 386 QTc: 463 Interpretive Statements SINUS RHYTHM WITH OCCASIONAL SUPRAVENTRICULAR PREMATURE COMPLEXES POSSIBLE ANTERIOR MYOCARDIAL INFARCTION , OF INDETERMINATE AGE [30 ms Q WAVE IN V3/V4, OR R < 0.2 mV IN V4] Compared to ECG 07/31/2024 11:35:24 Left ventricular hypertrophy no longer present ST (T wave) deviation no longer present Myocardial infarct finding still present Electronically Signed On 08-02-2024 21:21:56 CDT by ARSALAN BENNETT [email or web address]
--- NOTE | 2024-07-31 16:42 | USCV_ITS ---
Ester Beasley Age: 79 Gender: F : 1945 Exam Date: 07/31/2024 18:35 Ordering Phys: Amber Orosco MD Technologist: Exam Location: [facility] [place] Indication: bilateral pe BP: 148 / 78 HR: 100 Rhythm: Sinus Technical Quality: Adequate MEASUREMENTS (Male / Female) Normal Values 2D ECHO LV Diastolic Diameter PLAX 4.3 cm 4.2 - 5.9 / 3.9 - 5.3 cm IVS Diastolic Thickness 0.9 cm 0.6 - 1.0 / 0.6 - 0.9 cm IVS Systolic Thickness 1.6 cm LVPW Diastolic Thickness 1.2 cm 0.6 - 1.0 / 0.6 - 0.9 cm LVPW Systolic Thickness 1.5 cm LVOT Diameter 2.0 cm LV Ejection Fraction 2D Teich 85.7 % LV Ejection Fraction MOD 4C 71.4 % LV Ejection Fraction MOD 2C 74.6 % LV Ejection Fraction 2C AL 76.5 % LA Diameter 3.1 cm RA Systolic Volume 4C AL 23.3 ml RA Systolic Volume 4C MOD 22.4 ml LA Sys Volume AL 21.0 cm cubed LA Sys Volume Index AL 11.3 cm cubed/m squared Aorta at Sinotubular Diameter 2.5 cm IVC Diameter 1.7 cm M-MODE LA Ao Ratio MM 1.5 AV Cusp Separation MM 1.5 cm DOPPLER AV Peak Velocity 189.0 cm/s LVOT Peak Velocity 156.0 cm/s AV Area Cont Eq vti 2.6 cm squared AV Area Cont Eq pk 2.6 cm squared MV Peak Velocity 147.0 cm/s MV Area PHT 6.3 cm squared Mitral E to A Ratio 0.6 TV Peak Velocity 378.7 cm/s TR Peak Velocity 441.0 cm/s TR Peak Gradient 77.8 mmHg TR Mean Velocity 302.0 cm/s TR Mean Gradient 44.3 mmHg TR Velocity Time Integral 115.7 cm PV Peak Velocity 93.0 cm/s RV Ejection Time 0.3 s FINDINGS Left Ventricle Normal left ventricular size, systolic function and wall thickness, with no regional wall motion abnormalities. Left ventricular ejection fraction is estimated at 60 %. Grade I/IV diastolic dysfunction (abnormal relaxation filling pattern), normal to mildly elevated filling pressures. Right Ventricle The right ventricle is normal in size and function. Right Atrium The right atrium is normal in size. Left Atrium The left atrium is normal in size. Mitral Valve Thickened mitral valve. No mitral valve stenosis. Mild mitral valve regurgitation. Aortic Valve Moderate aortic valve calcification. Mild aortic valve stenosis, mean gradient 11.1 mmHg, MARCUS 2.6 cm squared.moderate aortic valve regurgitation. Tricuspid Valve Thickened tricuspid valve. Moderate tricuspid valve regurgitation. Pulmonic Valve Mild pulmonary valve regurgitation. Pericardium Normal pericardium without effusion. Aorta Normal ascending aorta dimension. IVC The inferior vena cava appears normal. CONCLUSIONS Normal left ventricular size, systolic function and wall thickness, with no regional wall motion abnormalities. Left ventricular ejection fraction is estimated at 60 %. Grade I/IV diastolic dysfunction (abnormal relaxation filling pattern), normal to mildly elevated filling pressures. Moderate aortic valve calcification. Mild aortic valve stenosis, mean gradient 11.1 mmHg, MARCUS 2.6 cm squared.moderate aortic valve regurgitation. Thickened tricuspid valve. Moderate tricuspid valve regurgitation. Thickened mitral valve. No mitral valve stenosis. Mild mitral valve regurgitation. Mild pulmonary valve regurgitation. There is no pericardial effusion. Right atrial pressure is around 10 mm of mercury. Saskia Beasley MD (Electronically Signed) Final Date: 31 July 2024 19:46 S
--- NOTE | 2024-07-31 17:15 | ECG_ITS ---
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1945 Requested By: Purvi Burk Order Number: [id number] Reading MD: ARSAALN BENNETT Measurements Intervals [place] Rate: 83 P: 68 CO: 165 QRS: -17 QRSD: 80 T: -32 QT: 344 QTc: 405 Interpretive Statements SINUS RHYTHM LEFT VENTRICULAR HYPERTROPHY AND ST-T CHANGE [VOLTAGE CRITERIA PLUS ST/T ABNORMALITY] POSSIBLE ANTERIOR MYOCARDIAL INFARCTION , OF INDETERMINATE AGE [30 ms Q WAVE IN V3/V4, OR R < 0.2 mV IN V4] Compared to ECG 07/31/2024 14:31:56 Left ventricular hypertrophy now present ST (T wave) deviation now present Myocardial infarct finding still present Electronically Signed On 08-02-2024 21:21:11 CDT by ARSALAN BENNETT [email or web address]
[2024-07-31 17:36] LABS: Troponin 5 6HR 92.04 ng/L (0-10)
[2024-07-31 17:37] LABS: Troponin 5 6HR Delta -13.96 ng/L (0-12)
[2024-08-01] VITALS (22 sets, daily range): BP systolic 127–161; BP diastolic 47–96; PULSE 70–102; RESP 16–23; TEMP 36.1–36.8; O2SAT 91–100; BMI 30.6
[2024-08-01] MEDS: heparin drip 25,000 UNIT/500 ML PREMIX 21 UNIT IV (00:17)
[2024-08-01] MEDS: heparin 5,000 unit/mL INJ 1 mL IVP (00:18)
[2024-08-01] MEDS: piperacillin-tazobactam 3.375 GM in sodium chloride 0.9% (plus) 50 ML IV ×2 (02:55→18:22)
[2024-08-01 06:20] LABS: Basophils % 0.3 %; Eosinophils # 0.1 10^3/uL (0.0-0.8); Eosinophils % 0.4 %; Hematocrit 33.9 % (36-47); Lymphocytes # 1.1 10^3/uL (0.8-4.8); Mean Corpuscular HGB Conc 31.9 g/dL (30-55); Mean Corpuscular Hemoglobin 30.5 pg (27-33); Mean Corpuscular Volume 95.8 fl (85-98); Mean Platelet Volume 10.8 fL (7.4-10.4); Monocytes # 1.1 10^3/uL (0.2-0.9); Monocytes % 7.3 %; Neutrophils # 12.95 10^3/uL (1.8-7.7); Neutrophils % 84.1 %; Nucleated Red Blood Cells % 0 %; Platelet Count 353 10^3/cmm (157-399); Red Blood Count 3.54 10^6/uL (3.85-5.65); Red Cell Distribution Width 13.8 % (12.1-15.1)
[2024-08-01 06:27] LABS: Partial Thromboplastin Time 53.7 SECONDS (23.9-36.7)
[2024-08-01 06:38] LABS: Alanine Aminotransferase 29 U/L (0-33); Albumin Level 2.9 g/dL (3.5-5.2); Alkaline Phosphatase 159 U/L (35-105); Anion Gap 12.5 (5-19); Aspartate Amino Transferase 40 U/L (0-32); Blood Urea Nitrogen 12 mg/dL (8-23); C Reactive Protein 319.7 mg/L (0.0-4.9); Calcium 7.9 mg/dL (8.5-10.5); Carbon Dioxide 25 mmol/L (22-29); Chloride 100 mmol/L (98-107); Creatinine Clr Calc Pharmacy 55.2977; Globulin 3.1 g/dL (1.3-4.6); Glucose 99 mg/dL (65-115); Osmolality Calculated 278 mOsm/kg (285-295); Potassium 3.5 mmol/L (3.5-5.1); Sodium 134 mmol/L (136-145); Total Bilirubin 0.6 mg/dL (0.15-1.2)
[2024-08-01 06:45] LABS: INR 1.19 (0.8-1.2)
--- NOTE | 2024-08-01 09:13 | PC.SOCIAL ---
IMM Update Pg. 2 of IMM Updated and reviewed with patient. Copy provided.
--- NOTE | 2024-08-01 09:33 | PC.PHAR ---
patient is from [facility]
--- NOTE | 2024-08-01 10:34 | PC.CHAP ---
Pastoral Care Encounter/Spiritual Assessment Type of Contact [] Declined commanding officer garage visit [] Patient/Family/Request visit [] Outpatient visit [] Follow-up visit [] Physician referral [] Code/Alert [x] Routine visit [] Staff referral [] Actively dying [] Patient sleeping [] Family support [] [x] Out of room [] Palliative care [] [] Receiving care in room [] Pre-surgical visit [] Trauma [] Long length of stay [] ICU visit [] Other: Relational/Emotional Strength [] Patient feels connected with others/family/visitors/staff [] Distress [] Loneliness/isolation [] Abandonment Spirituality of Patient [] Person of Deonna [] Attends Druze of their Deonna [] Believes in Prayer [] Reads Bible or Pentecostal materials [] There are Spiritual issues to be addressed Compensation Administrator 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 [x] Prayer [] Active listening [] Non-anxious presence [] Spiritual/emotional support [] Crisis/trauma care [] Spiritual counseling [] Bereavement support [] Provided bereavement packet [] Provided Bible/devotional materials [] Provided toy/stuffed animal, coloring book to patient or family member [] Provided Communion [] Anointing/Bernie [] Salvation [] Completed spiritual assessment [] Other: Impact on Illness or Injury [] Angry [] Fearful [] Anxious [] Often cries [] Exhaustion [] Unable to work [] Unable to attend orthodoxy [] Unable to walk/stand [] Unable to read [] Unable to drive [] Unable to eat/drink [] Unable to sleep [] Unable to be with family [] Patient intubated [] Other: Summary Time spent with patient
--- NOTE | 2024-08-01 10:48 | P.PN_ITS ---
Subjective 2 Subjective: Patient seen and examined. Reporting increased right upper quadrant abdominal pain Vitals/I&O/Wt Last Vital Signs Temp 97.3 F L 08/01/24 04:00 Pulse 87 08/01/24 07:48 Resp 16 08/01/24 07:48 BP 156/82 08/01/24 04:00 Pulse Ox 93 08/01/24 07:48 O2 Del Method Room Air 08/01/24 07:48 O2 Flow Rate 2 07/31/24 09:34 07/31/24 08/01/24 08/01/24 22:59 06:59 14:59 Intake Total 50 / 100 176.7 / 276.7 Balance 50 / 100 176.7 / 276.7 Weight last 48 hrs Weight 167 lb 7 oz Weight 167 lb 7 oz Physical Exam 2 Narrative: General: No acute distress, oriented only to person Abdomen: Soft, moderately distended, tender to palpation right upper quadrant, negative Negrete sign, no guarding or rebound Data 08/01/24 06:02 08/01/24 06:02 Micro: Microbiology 07/31/24 10:40 Urine Culture - Preliminary Urine,Clean Catch Gram Negative Rods 07/31/24 14:27 Blood Culture - Preliminary Blood SPECIMEN COLLECTED 07/31/24 10:04 Blood Culture - Preliminary Blood SPECIMEN COLLECTED A&P Assessment and plan (1) Pulmonary embolism: (2) Status post cholecystectomy: (3) Status post endoscopic retrograde cholangiopancreatography: (4) Abscess, intra-abdominal, postoperative: Plan Cholecystectomy was performed at an outside hospital HIDA scan this morning was negative I spoke with IR, plans for drain placement this afternoon or tomorrow No acute surgical intervention at this time Medical management per hospitalist Attestations 2 Medical Necessity Statement*: Per primary Coding Level of Care Code 39071 Diagnoses Pulmonary embolism I26.99 Status post cholecystectomy Z90.49 Status post endoscopic retrograde cholangiopancreatography Z98.890 Abscess, intra-abdominal, postoperative T81.43XA; K65.1
--- NOTE | 2024-08-01 12:11 | P.ANESASSM_ITS ---
Pre-Anesthetic Assessment Height/Weight: Height 1.57 m Weight 75.948 kg Temp Pulse Resp BP Pulse Ox O2 Del Method O2 Flow Rate 97.6 F 102 H 18 157/76 95 Room Air 2 08/01/24 11:54 08/01/24 11:54 08/01/24 11:54 08/01/24 11:54 08/01/24 11:54 08/01/24 11:54 07/31/24 09:34 Preop Diagnosis: Abcess Operation Date: 08/01/24 13:00 Proposed Procedures p Ultrasound Drain Placement(Not Applicable) - Marian Piper DO Familial anesthetic complications: none Was Beta Calvin taken within 24 hours: N/A Was Clonidine taken within 24 hours: N/A Last intake: NPO since MN per nursing staff patient has issues with dementia and alzheimers. Social No alcohol and No tobacco Exam Patient lives in memory unit [facility] due to dementia and alzheimers. Daughter gives consent and PMH Airway Submandibular: within normal limits Cervical ROM: within normal limits Dentition: false (removed) Comments: Comments: TM distance <3 finger width. Patient refuses Mallampati assessment. Pulmonary None reported Bilateral Pulmonary Emboli- Heparin gtt noted in Dr. Worley consult. CV/HEM Anemia (hgb 10.8), Congestive Heart Failure (swelling in BLE noted.) and Hypertension Troponins elevated see labs ECHO Normal left ventricular size, systolic function and wall thickness, with no regional wall motion abnormalities. Left ventricular ejection fraction is estimated at 60 %. Grade I/IV diastolic dysfunction (abnormal relaxation filling pattern), normal to mildly elevated filling pressures. Moderate aortic valve calcification. Mild aortic valve stenosis, mean gradient 11.1 mmHg, MARCUS 2.6 cm squared.moderate aortic valve regurgitation. Thickened tricuspid valve. Moderate tricuspid valve regurgitation. Thickened mitral valve. No mitral valve stenosis. Mild mitral valve regurgitation. Mild pulmonary valve regurgitation. There is no pericardial effusion. Right atrial pressure is around 10 mm of mercury. None reported UTI culture pending abx coverage WBC 15,000 Hepatic None reported GI None reported Metabolic None reported Musc/skel Weakness Neuropsych Cerebrovascular Accident (noted on chart.), Dementia (Alzheimers), Seizure (2014 last seizure per chart.) and Syncope Anesthetic Plan ASA status: 4 Anesthesia: MAC Other: 07/20 ERCP 07/21 Cholecystectomy ([place]) 07/22 Discharge Medications/Allergies Home Medications Medication Instructions Recorded Confirmed Last Taken Type aspirin 81 mg tablet,delayed 81 mg PO DAILY@10/27/23 08/01/24 07/27/24 History release lisinopril 20 mg tablet 20 mg PO DAILY@10/27/23 08/01/24 07/27/24 History mirtazapine 7.5 mg tablet 7.5 mg PO BEDTIME@10/27/23 08/01/24 07/27/24 History hydrocodone 5 mg-acetaminophen 325 1 tab PO Q4H PRN pain #30 tabs 07/24/24 08/01/24 07/31/24 Rx mg tablet Allergies Allergy/AdvReac Type Severity Reaction Status Date / Time egg Allergy Unknown Verified 07/24/24 12:04 lettuce Allergy Unknown Verified 07/24/24 12:04 Current Medications Generic Name Dose Route Start Last Admin Trade Name Freq PRN Reason Stop Dose Admin Heparin Sodium/Sodium Chloride 25,000 unit in 500 mls @ 0 mls/hr 08/01/24 00:30 08/01/24 06:19 Heparin Drip IV 0 unit/kg/hr CONT [facility] 0 mls/hr Titration Protocol Per Protocol Piperacillin Sod/Tazobactam 50 mls @ 12.5 mls/hr 07/31/24 18:00 08/01/24 11:34 Sod 3.375 gm/ Sodium Chloride IV Not Given Q8H [facility] Protocol Lisinopril 20 mg 08/01/24 08:00 08/01/24 11:34 Lisinopril 20 Mg Tablet PO Not Given DAILY@08 [facility] PFSH Anesthesia Medical History Dementia Family history of familial adenomatous polyposis Facial contusion Short-term memory loss mild NSTEMI (non-ST elevated myocardial infarction) Syncope History of epilepsy history of grand mal seizures, last ~2014, not on chronic medication Hypertension 2 para 2 Surgical History Status post endoscopic retrograde cholangiopancreatography Status post cholecystectomy History of colectomy subtotal colectomy with ileorectal anastomosis performed by Dr Chaney in 1992 due to family history of familial adenomatous polyposis Family History Father CAD (coronary artery disease) age 50 from heart attack Other Familial polyposis Social History Smoking and tobacco/nicotine status: never used tobacco/nicotine Alcohol intake: never Substance/Drug Use: never Household members: family Data Anesthesia 08/01/24 06:02 08/01/24 06:02 Short CBC 07/31/24 08/01/24 Range/Units 10:04 06:02 WBC 18.37 H 15.40 H (3.29-11.43) 10^3/uL Hgb 12.20 10.80 L (11.27-16.99) g/dL Hct 38.0 33.9 L (36-47) % MCV 96.4 95.8 (85-98) fl Plt Count 370 353 (157-399) 10^3/cmm Neut % (Auto) 88.4 84.1 % Neut # (Auto) 16.23 H 12.95 H (1.8-7.7) 10^3/uL BMP 07/31/24 08/01/24 10:04 06:02 Sodium 136 134 L Potassium 3.8 3.5 Chloride 102 100 Carbon Dioxide 22 25 BUN 11 12 Creatinine 0.7 0.7 Glucose 127 H 99 Calcium 8.2 L 7.9 L Cardiac Enzymes 07/31/24 07/31/24 07/31/24 Range/Units 10:04 12:06 17:12 Troponin T Baseline 106 H* (0-10) ng/L Troponin T 120 Minute 89.95 H (0-10) ng/L Delta Troponin T -16.05 L (0-10) ABS# Troponin T Hi Sens 6Hr 92.04 H (0-10) ng/L Troponin T Hi Sens 6Hr Delta -13.96 L (0-12) ng/L NT-Pro-B Natriuret Pep 2108 H (0-450) pg/mL Liver Function 07/31/24 08/01/24 Range/Units 10:04 06:02 Total Bilirubin 0.7 0.6 (0.15-1.2) mg/dL AST 23 40 H (0-32) U/L ALT 22 29 (0-33) U/L Alkaline Phosphatase 128 H 159 H (35-105) U/L Albumin 3.1 L 2.9 L (3.5-5.2) g/dL Urine 07/31/24 Range/Units 10:40 Urine Color Dark yellow A (Yellow) Urine Appearance Cloudy A (CLEAR) Urine pH 6.0 (5-7) Ur Specific [place] 1.018 (1.005-1.030) Urine Protein 2+ A (Negative) Urine Glucose (UA) Negative (Normal) Urine Ketones 2+ H (Negative) Urine Nitrate Negative (Negative) Urine Bilirubin Negative (Negative) Ur Leukocyte Esterase 1+ A (Negative) Urine RBC 11-20 H (0-2) /hpf Urine WBC 51-100 H (0-5) /hpf Coags 07/31/24 08/01/24 10:04 06:02 ESR 53 H PT 15.50 H INR 1.19 APTT 53.7 H C-Reactive Protein 309.5 H 319.7 H Microbiology 07/31/24 10:40 Urine Culture - Preliminary Urine,Clean Catch Gram Negative Rods 07/31/24 14:27 Blood Culture - Preliminary Blood SPECIMEN COLLECTED 07/31/24 10:04 Blood Culture - Preliminary Blood SPECIMEN COLLECTED Cardiac Studies: 2 Echocardiogram 07/31/24 Cardiac Event Monitor 01/09/23 Anesthesia Procedures Other Information Medical history assessment from EMR and medical staff- patient refuses to answer even simple questions appears irritated with questioning. Will call daughter Kamala to obtain consent.
[2024-08-01] MEDS: sodium chloride 0.9% 1,000 ML 30 ML IV (12:24)
--- NOTE | 2024-08-01 12:26 | US_ITS ---
WS: [id number] ULTRASOUND GUIDED subhepatic percutaneous catheter placement. HISTORY: Subhepatic Abscess Procedure, risks, and complications are explained to the patient. Consent was obtained. Skin is clean sed with ChloraPrep and anesthetized with 1% buffered lidocaine. Focal subhepatic collection has been identified by CT. Request for percutaneous pigtail catheter plac ement. Procedure, risks and complications had been explained to the patient's daughter for consent. She is a stafford of the complications and risks of placing the catheter. Pigtail catheter was placed with sedation provided by anesthesia. The collection is localized. Skin is cleansed with ChloraPrep and anesthetized with lidocaine. A 8 Fr ench percutaneous catheter was placed into the subhepatic collection without complications. The subhe patic collection is mildly complex. Dark blood is aspirated. Approximately 25 cc are aspirated. The c atheter then became obstructed with clotted blood. 10 cc of sterile saline were used to flush the cat heter. Catheter is connected to vacuum drainage bag. Will be very important to flush this catheter every 6-8 hours with sterile saline. This catheter may not drain due to the thick material which is probably related to hematoma. Specimen was collected to evaluate for infectious process. Culture and sensitivity have been ordered. If the culture and sensit ivity are negative this catheter should be removed. No complications are apparent. Patient's vital si gns remained stable. Note: Upon reviewing the prior CT I did notice there are a few small foci of air in the peritoneum wh ich were not commented on in the CT report. I did discuss this with Dr. Luis. This may be residua l from the the surgery. US/US peritoneal fl dr nichols [id number] IMPRESSION: 1. Uncomplicated placement of an 8 [place] pigtail catheter in the subhepatic c ollection. Thick clotted blood was removed. The entire cavity did not drain and the catheter became obstructed. Catheter was flushed with sterile saline. 2. Approximately 25 cc of dark red and partially clotted bladder removed initi ally. Specimen was sent for culture and sensitivity. 3. It will be important to flush this catheter with sterile saline to ensure i t does not become obstructed. If culture and sensitivity are negative this cath eter should be removed.
--- NOTE | 2024-08-01 13:15 | P.PN_ITS ---
Subjective 2 Subjective: She is having some pain in her gut . Vitals/I&O/Wt Last Vital Signs Temp 97.6 F 08/01/24 11:54 Pulse 102 H 08/01/24 11:54 Resp 18 08/01/24 11:54 BP 157/76 08/01/24 11:54 Pulse Ox 95 08/01/24 11:54 O2 Del Method Room Air 08/01/24 11:54 O2 Flow Rate 2 07/31/24 09:34 07/31/24 08/01/24 08/01/24 22:59 06:59 14:59 Intake Total 50 / 100 176.7 / 276.7 Balance 50 / 100 176.7 / 276.7 Weight last 48 hrs Weight 75.948 kg Weight 75.948 kg Physical Exam 2 Narrative: Accompanied by her daughter. Const: COMMON NORMALS: alert GENERAL APPEARANCE: cooperative O RIENTATION/CONSCIOUSNESS: Yes awake HENMT: COMMON NORMALS: oropharynx normal Neck/C-Spine: COMMON NORMALS: no JVD Resp: COMMON NORMALS: normal respiratory effort and clear to auscultation bilaterally AUSCULTATION: clear to auscultation bilaterally Cardio: COMMON NORMALS: no JVD, regular rhythm, S1 normal heart sound present, S2 normal heart sound present and No murmurs present (Cardio) RHYTHM: regular rhythm HEART SOUNDS: S1 normal heart sound present and S2 normal heart sound present GI: COMMON NORMALS: Normal to inspection, nondistended, normoactive bowel sounds present, Soft to palpation and non-tender PALPATION: Yes Soft to palpation Extremity: COMMON NORMALS: no joint enlargement and no pedal edema GENERAL: Yes edema (Trace) Neuro: COMMON NORMALS: moves all extremities SENSORIUM/ORIENTATION: Yes alert Skin: COMMON NORMALS: no rashes or lesions noted GENERAL SKIN EXAM: no rashes or lesions noted Data 08/01/24 06:02 08/01/24 06:02 Micro: Microbiology 07/31/24 10:40 Urine Culture - Preliminary Urine,Clean Catch Gram Negative Rods 07/31/24 14:27 Blood Culture - Preliminary Blood SPECIMEN COLLECTED 07/31/24 10:04 Blood Culture - Preliminary Blood SPECIMEN COLLECTED A&P Assessment and plan (1) Hypertension: Qualifiers: Hypertension type: primary hypertension Qualified Code(s): I10 - Essential (primary) hypertension (2) Cardiovascular disease: (3) Pulmonary embolism: (4) Status post cholecystectomy: (5) Status post endoscopic retrograde cholangiopancreatography: (6) Intra-abdominal fluid collection: (7) CVA (cerebral vascular accident): (8) Alzheimer's dementia without behavioral disturbance: (9) History of seizures: (10) Abscess: Plan #Cholecystectomy postop day 10 #Status post biliary stent via ERCP 07/20 # Intra-abdominal fluid collection biloma versus abscess present #UTI #Dementia, currently on memory care unit at [facility] #Bilateral pulmonary embolism #History of seizures #History of stroke #History of epilepsy #History of hypertension Underwent HIDA scan which was unremarkable. Reviewed surgery note. Discussed with radiology. Plans for IR drainage catheter placement. Holding heparin. Whether we will be able to resume heparin will depend on findings per discussion with radiologist. May not be able to resume anticoagulation in case of hematoma due to risk of bleeding. 2 collections, subhepatic and right colic gutter, as per discussion with surgery drain to be placed in the subhepatic collection. Small amount of free air also noted, but decreased from prior study. Discussed with rehabilitation case coordinator, nursing. ? Continue on Zosyn at this time N.p.o., continues on IV hydration. Monitor for risk of fluid overload. Reviewed urine and blood cultures. Urine culture noted more than 100,000 gram- negative rods. Continue Zosyn. Follow-up urine culture. Resume anticoagulation once safe for bilateral PE. ? Going forward patient will need Eliquis at discharge ? Reviewed echo. Grade 1 diastolic dysfunction. Mild AVS. Moderate TVR. Mild PVR. ? Continue patient's home lisinopril ? Hold aspirin at this time ? Seizure precautions, fall precautions DVT prophylaxis: SCD Attestations 2 Medical Necessity Statement*: Continue admission for assessment management of intra-abdominal fluid collection, possible abscess versus biloma following cholecystectomy, IR drain placement, also requiring anticoagulation for bilateral PE. UTI. and High MDM includes amount and/or complexity of data reviewed/ordered [ previous or external records, resulted lab(s)/test(s), ordered lab(s)/test(s), independent historian and other healthcare professional discussion] and described risk of complication, morbidity or mortality of management as documented Diagnoses Primary hypertension I10 Hypertension type: primary hypertension Cardiovascular disease I25.10 Pulmonary embolism I26.99 Status post cholecystectomy Z90.49 Status post endoscopic retrograde cholangiopancreatography Z98.890 Intra-abdominal fluid collection R18.8 CVA (cerebral vascular accident) I63.9 Alzheimer's dementia without behavioral disturbance G30.9; F02.80 History of seizures Z87.898 Abscess L02.91
--- NOTE | 2024-08-01 13:37 | NM_ITS ---
WS: [id number] NUCLEAR MEDICINE HIDA SCAN HISTORY: rule out biloma vs abscess, recent cholecystectomy. COMPARISON: CT 07/31/2024 TECHNIQUE: The patient was intravenously injected with 5.5 mCi of TC99m Mebrofenin. Immediate imaging over the right upper quadrant was followed by 5 minute image and additional images for a total of 60 minutes. Normal uptake of radiotracer throughout the liver. No extravasation of the radionuclide from the common bile duct or cystic duct. No biloma is identifie d. Common bile duct is patent. NM/NM hepatobiliary wo phar [id number] IMPRESSION: 1. No extrahepatic collection of radionuclide. 2. Patent common bile duct.
--- NOTE | 2024-08-01 14:20 | SUR.OPER ---
Anesthesia was administered by Jessica Carrizales CRNA during the procedure. Anesthesia in time 1315, anesthesia out time 1355 as documented by anesthesia provider.
--- NOTE | 2024-08-01 14:38 | PC.NURSE ---
Report given at bedside to pt's nurse Marianne, per Dr. Piper, to flush drain with 10cc sterile saline q 6-8 hours beginning at 1500 today, as reflected in her operative note.
[2024-08-01] MEDS: morphine 4 mg/mL SDV 1 mL 2 MG IVP ×2 (15:51→21:07)
[2024-08-02] VITALS (17 sets, daily range): BP systolic 127–168; BP diastolic 64–92; PULSE 62–95; RESP 13–23; TEMP 36.8–37.2; O2SAT 91–100; BMI 30.6
[2024-08-02] MEDS: piperacillin-tazobactam 3.375 GM in sodium chloride 0.9% (plus) 50 ML IV ×3 (01:20→17:02)
[2024-08-02] MEDS: heparin drip 25,000 UNIT/500 ML PREMIX 21 UNIT IV (01:20)
[2024-08-02] MEDS: morphine 4 mg/mL SDV 1 mL 2 MG IVP ×3 (01:48→17:02)
[2024-08-02] MEDS: acetaminophen 325 mg Tablet 650 MG PO (03:56)
[2024-08-02 04:07] LABS: Basophils % 0.2 %; Eosinophils # 0.1 10^3/uL (0.0-0.8); Hematocrit 32.3 % (36-47); Lymphocytes # 1.1 10^3/uL (0.8-4.8); Lymphocytes % 7.9 %; Mean Corpuscular HGB Conc 31.9 g/dL (30-55); Mean Corpuscular Hemoglobin 30.7 pg (27-33); Mean Corpuscular Volume 96.4 fl (85-98); Mean Platelet Volume 10.6 fL (7.4-10.4); Monocytes # 1.1 10^3/uL (0.2-0.9); Monocytes % 7.9 %; Neutrophils # 10.98 10^3/uL (1.8-7.7); Neutrophils % 82.3 %; Nucleated Red Blood Cells % 0 %; Platelet Count 370 10^3/cmm (157-399); Red Blood Count 3.35 10^6/uL (3.85-5.65); Red Cell Distribution Width 13.8 % (12.1-15.1); White Blood Count 13.36 10^3/uL (3.29-11.43)
[2024-08-02 04:20] LABS: Partial Thromboplastin Time 54.3 SECONDS (23.9-36.7)
[2024-08-02 04:22] LABS: Chloride 103 mmol/L (98-107); Potassium 3.7 mmol/L (3.5-5.1); Sodium 138 mmol/L (136-145)
[2024-08-02 04:52] LABS: Alanine Aminotransferase 32 U/L (0-33); Albumin Level 2.7 g/dL (3.5-5.2); Alkaline Phosphatase 164 U/L (35-105); Anion Gap 14.7 (5-19); Aspartate Amino Transferase 41 U/L (0-32); Blood Urea Nitrogen 10 mg/dL (8-23); Calcium 7.6 mg/dL (8.5-10.5); Carbon Dioxide 24 mmol/L (22-29); Creatinine Clr Calc Pharmacy 55.2977; Globulin 3.2 g/dL (1.3-4.6); Glucose 105 mg/dL (65-115); Osmolality Calculated 285 mOsm/kg (285-295); Total Bilirubin 0.5 mg/dL (0.15-1.2); Total Protein 5.9 g/dL (6.6-8.7)
[2024-08-02 07:30] LABS: Partial Thromboplastin Time 54.1 SECONDS (23.9-36.7)
--- NOTE | 2024-08-02 09:51 | PC.CHAP ---
Pastoral Care Encounter/Spiritual Assessment Type of Contact [] Declined exotic dancer visit [] Patient/Family/Request visit [] Outpatient visit [] Follow-up visit [] Physician referral [] Code/Alert [] Routine visit [] Staff referral [] Actively dying [x] Patient sleeping [x] Family support [] [] Out of room [] Palliative care [] [] Receiving care in room [] Pre-surgical visit [] Trauma [] Long length of stay [] ICU visit [] Other: Relational/Emotional Strength [] Patient feels connected with others/family/visitors/staff [] Distress [] Loneliness/isolation [] Abandonment Spirituality of Patient [] Person of Deonna [] Attends Holiness of their Deonna [] Believes in Prayer [] Reads Bible or Restorationism materials [] There are Spiritual issues to be addressed 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 [x] Prayer [x] Active listening [x] Non-anxious presence [x] Spiritual/emotional support [] Crisis/trauma care [] Spiritual counseling [] Bereavement support [] Provided bereavement packet [] Provided Bible/devotional materials [] Provided toy/stuffed animal, coloring book to patient or family member [] Provided Communion [] Anointing/[place] [] Salvation [x] Completed spiritual assessment [] Other: Impact on Illness or Injury [] Angry [] Fearful [] Anxious [] Often cries [] Exhaustion [] Unable to work [] Unable to attend yazidism [] Unable to walk/stand [] Unable to read [] Unable to drive [] Unable to eat/drink [] Unable to sleep [] Unable to be with family [] Patient intubated [] Other: Summary Time spent with patient 5 min
--- NOTE | 2024-08-02 09:55 | P.PN_ITS ---
Subjective 2 Subjective: Patient seen and examined. Tolerating diet. Pain controlled Vitals/I&O/Wt Last Vital Signs Temp 98.5 F 08/02/24 07:33 Pulse 62 08/02/24 08:24 Resp 18 08/02/24 08:24 BP 127/64 08/02/24 07:33 Pulse Ox 100 08/02/24 08:24 O2 Del Method Nasal Cannula 08/02/24 08:24 O2 Flow Rate 2 08/02/24 08:24 08/01/24 08/02/24 08/02/24 22:59 06:59 14:59 Intake Total 100 / 400 50 / 450 138.95 / 138.95 Balance 100 / 400 50 / 450 138.95 / 138.95 Weight last 48 hrs Weight 167 lb 7 oz Weight 167 lb 7 oz Weight 167 lb 7 oz Physical Exam 2 Narrative: General: No acute distress, oriented only to person Abdomen: Soft, moderately distended, tender to palpation right upper quadrant, negative Negrete sign, no guarding or rebound Drain: Mostly sanguinous Data 08/02/24 03:47 08/02/24 03:47 Micro: Microbiology 08/01/24 13:45 Gram Stain - Final Peritoneal Fluid Body Fluid Culture - Preliminary Gram Negative Rods 07/31/24 14:27 Blood Culture - Preliminary Blood NEGATIVE TO DATE 07/31/24 10:04 Blood Culture - Preliminary Blood NEGATIVE TO DATE 07/31/24 10:40 Urine Culture - Preliminary Urine,Clean Catch Gram Negative Rods A&P Assessment and plan (1) Pulmonary embolism: (2) Status post cholecystectomy: (3) Status post endoscopic retrograde cholangiopancreatography: (4) Abscess, intra-abdominal, postoperative: Plan Cholecystectomy was performed at an outside hospital IR drain was placed into gallbladder fossa abscess yesterday. Cultures growing gram-negative rods Continue antibiotics Regular diet No acute surgical intervention at this time Medical management per hospitalist Attestations 2 Medical Necessity Statement*: Per primary Coding Level of Care Code 63558 Diagnoses Pulmonary embolism I26.99 Status post cholecystectomy Z90.49 Status post endoscopic retrograde cholangiopancreatography Z98.890 Abscess, intra-abdominal, postoperative T81.43XA; K65.1
--- NOTE | 2024-08-02 12:27 | PM.PN ---
Subjective Subjective: She is sleeping. Wakes up to voice and shoulder touch. Denies pain or discomfort. Vitals/I&O/Wt Last Vital Signs Temp 98.5 F 08/02/24 11:24 Pulse 72 08/02/24 11:24 Resp 14 08/02/24 11:24 BP 134/67 08/02/24 11:24 Pulse Ox 97 08/02/24 11:24 O2 Del Method Nasal Cannula 08/02/24 11:24 O2 Flow Rate 2 08/02/24 11:24 08/01/24 08/02/24 08/02/24 22:59 06:59 14:59 Intake Total 100 / 400 50 / 450 138.95 / 138.95 Balance 100 / 400 50 / 450 138.95 / 138.95 Weight last 48 hrs Weight 75.948 kg Weight 75.948 kg Weight 75.948 kg Physical Exam Narrative: Accompanied by Son-in-law. Const: GENERAL APPEARANCE: cooperative HENMT: COMMON NORMALS: oropharynx normal Neck/C-Spine: COMMON NORMALS: no JVD Resp: COMMON NORMALS: normal respiratory effort and clear to auscultation bilaterally AUSCULTATION: clear to auscultation bilaterally Cardio: COMMON NORMALS: no JVD, regular rhythm, S1 normal heart sound present, S2 normal heart sound present and No murmurs present (Cardio) RHYTHM: regular rhythm HEART SOUNDS: S1 normal heart sound present and S2 normal heart sound present GI: COMMON NORMALS: Normal to inspection, nondistended, normoactive bowel sounds present, Soft to palpation and non-tender PALPATION: Yes Soft to palpation OTHER: Right upper quadrant drain with old blood, pink diluted drainage in the tubing. Extremity: COMMON NORMALS: no joint enlargement and no pedal edema GENERAL: Yes edema (Trace) Neuro: COMMON NORMALS: moves all extremities Skin: COMMON NORMALS: no rashes or lesions noted GENERAL SKIN EXAM: no rashes or lesions noted Data 08/02/24 03:47 08/02/24 03:47 Micro: Microbiology 08/01/24 13:45 Gram Stain - Final Peritoneal Fluid Body Fluid Culture - Preliminary Gram Negative Rods 07/31/24 14:27 Blood Culture - Preliminary Blood NEGATIVE TO DATE 07/31/24 10:04 Blood Culture - Preliminary Blood NEGATIVE TO DATE 07/31/24 10:40 Urine Culture - Preliminary Urine,Clean Catch Gram Negative Rods A&P Assessment and plan (1) Hypertension: Qualifiers: Hypertension type: primary hypertension Qualified Code(s): I10 - Essential (primary) hypertension (2) Cardiovascular disease: (3) Pulmonary embolism: (4) Status post cholecystectomy: (5) Status post endoscopic retrograde cholangiopancreatography: (6) Intra-abdominal fluid collection: (7) CVA (cerebral vascular accident): (8) Alzheimer's dementia without behavioral disturbance: (9) History of seizures: (10) Abscess: Plan #Cholecystectomy postop day 10 #Status post biliary stent via ERCP 07/20 # Intra-abdominal fluid collection biloma versus abscess present #UTI #Dementia, currently on memory care unit at [facility] #Bilateral pulmonary embolism #History of seizures #History of stroke #History of epilepsy #History of hypertension Per history obtained from her son-in-law has been somnolent. Status post drain placement for subhepatic effusion, with small amount of old blood drained. Receiving flushes as per discussion with radiology at risk of clotting off of the drain. Reviewed fluid Gram stain culture, no results so far. Concern for possible infected hematoma. Follow-up results. Reviewed blood culture, negative. Has been resumed on anticoagulation, some risk of bleeding discussed. Monitor for bleeding, monitor PTT. Reassess blood counts. Reviewed surgery note. Discussed with nursing, transplant case manager. HIDA scan was unremarkable. Discussed with radiology. 2 collections, subhepatic and right colic gutter, as per discussion with surgery drain to be placed in the subhepatic collection. Small amount of free air also noted, but decreased from prior study. Discussed with transplant case manager, nursing. ? Continue on Zosyn at this time Resume regular diet. Off IV fluid. Reviewed urine and blood cultures. UTI: Urine culture noted more than 100,000 gram-negative rods. Continue Zosyn. Follow-up urine culture. PE Continue anticoagulation, under physical bleeding. Transfer to medical surgical floor. ? Going forward patient will need Eliquis at discharge ? Reviewed echo. Grade 1 diastolic dysfunction. Mild AVS. Moderate TVR. Mild PVR. ? Continue patient's home lisinopril ? Hold aspirin at this time ? Seizure precautions, fall precautions DVT prophylaxis: SCD Attestations Medical Necessity Statement*: Continue admission for assessment management of intra-abdominal hematoma collection, possible infected hematoma, IR drainage, also requiring anticoagulation for bilateral PE. UTI. and High MDM includes amount and/or complexity of data reviewed/ordered [ previous or external records, resulted lab(s)/test(s), ordered lab(s)/test(s), independent historian and other healthcare professional discussion] and described risk of complication, morbidity or mortality of management as documented Diagnoses Primary hypertension I10 Hypertension type: primary hypertension Cardiovascular disease I25.10 Pulmonary embolism I26.99 Status post cholecystectomy Z90.49 Status post endoscopic retrograde cholangiopancreatography Z98.890 Intra-abdominal fluid collection R18.8 CVA (cerebral vascular accident) I63.9 Alzheimer's dementia without behavioral disturbance G30.9; F02.80 History of seizures Z87.898 Abscess L02.91
[2024-08-02 13:37] LABS: Partial Thromboplastin Time 42.8 SECONDS (23.9-36.7)
[2024-08-02 20:47] LABS: Partial Thromboplastin Time 46.7 SECONDS (23.9-36.7)
[2024-08-02] MEDS: heparin 5,000 unit/mL INJ 1 mL IVP (21:05)
[2024-08-02] MEDS: heparin drip 25,000 UNIT/500 ML PREMIX 28 UNIT IV (22:19)
[2024-08-03] VITALS (16 sets, daily range): BP systolic 123–161; BP diastolic 71–87; PULSE 73–84; RESP 14–18; TEMP 36.6–37.7; O2SAT 95–97
[2024-08-03] MEDS: morphine 4 mg/mL SDV 1 mL 2 MG IVP ×2 (01:06→19:44)
[2024-08-03] MEDS: piperacillin-tazobactam 3.375 GM in sodium chloride 0.9% (plus) 50 ML IV ×3 (01:07→17:53)
[2024-08-03 03:42] LABS: Basophils % 0.2 %; Eosinophils # 0.1 10^3/uL (0.0-0.8); Eosinophils % 0.9 %; Hematocrit 30.5 % (36-47); Lymphocytes # 1.1 10^3/uL (0.8-4.8); Lymphocytes % 8.2 %; Mean Corpuscular HGB Conc 31.5 g/dL (30-55); Mean Corpuscular Hemoglobin 30.4 pg (27-33); Mean Corpuscular Volume 96.5 fl (85-98); Mean Platelet Volume 10.9 fL (7.4-10.4); Monocytes # 1.2 10^3/uL (0.2-0.9); Monocytes % 8.6 %; Neutrophils # 11.12 10^3/uL (1.8-7.7); Neutrophils % 81.2 %; Nucleated Red Blood Cells % 0 %; Platelet Count 370 10^3/cmm (157-399); Red Blood Count 3.16 10^6/uL (3.85-5.65); Red Cell Distribution Width 13.6 % (12.1-15.1); White Blood Count 13.69 10^3/uL (3.29-11.43)
[2024-08-03 04:03] LABS: Partial Thromboplastin Time 129.1 SECONDS (23.9-36.7)
[2024-08-03 04:04] LABS: Alanine Aminotransferase 36 U/L (0-33); Albumin Level 2.5 g/dL (3.5-5.2); Alkaline Phosphatase 225 U/L (35-105); Anion Gap 15.9 (5-19); Aspartate Amino Transferase 66 U/L (0-32); Blood Urea Nitrogen 8 mg/dL (8-23); Calcium 7.5 mg/dL (8.5-10.5); Carbon Dioxide 23 mmol/L (22-29); Chloride 99 mmol/L (98-107); Creatinine Clr Calc Pharmacy 55.2977; Globulin 3.1 g/dL (1.3-4.6); Glucose 98 mg/dL (65-115); Osmolality Calculated 276 mOsm/kg (285-295); Potassium 3.9 mmol/L (3.5-5.1); Sodium 134 mmol/L (136-145); Total Bilirubin 0.5 mg/dL (0.15-1.2); Total Protein 5.6 g/dL (6.6-8.7)
--- NOTE | 2024-08-03 08:21 | PC.SOCIAL ---
Addendum entered by Charo Franklin RN 08/03/24 08:26: IMM Updated w/ patients son-in-law @ bedside as patient is resting. Original Note: IMM Update pg 2 of IMM Updated and reviewed w/ patient. Copy provided and copy dated, initialed and placed in chart.
[2024-08-03] MEDS: lisinopril 20 mg Tablet PO (09:08)
--- NOTE | 2024-08-03 10:54 | P.PN_ITS ---
Subjective 2 Subjective: Patient seen and examined. Reports no pain Vitals/I&O/Wt Last Vital Signs Temp 99.8 F H 08/03/24 07:30 Pulse 83 08/03/24 10:46 Resp 16 08/03/24 10:46 BP 150/76 08/03/24 07:30 Pulse Ox 95 08/03/24 10:46 O2 Del Method Nasal Cannula 08/03/24 10:46 O2 Flow Rate 1 08/03/24 10:46 08/02/24 08/03/24 08/03/24 22:59 06:59 14:59 Intake Total 443.066 / 717.333 225.933 / 943.266 Balance 443.066 / 717.333 225.933 / 943.266 Weight last 48 hrs Weight 161 lb Weight 167 lb 7 oz Physical Exam 2 Narrative: General: No acute distress, oriented only to person Abdomen: Soft, moderately distended, minimally tender tender to palpation right upper quadrant, no guarding or rebound Drain: Mostly sanguinous, minimal output Data 08/03/24 03:11 08/03/24 03:11 Micro: Microbiology 07/31/24 10:40 Urine Culture - Final Urine,Clean Catch Enterobacter hormaechei 08/01/24 13:45 Gram Stain - Final Peritoneal Fluid Body Fluid Culture - Preliminary Gram Negative Rods A&P Assessment and plan (1) Pulmonary embolism: (2) Status post cholecystectomy: (3) Status post endoscopic retrograde cholangiopancreatography: (4) Abscess, intra-abdominal, postoperative: Plan Cholecystectomy was performed at an outside hospital IR drain was placed into gallbladder fossa abscess yesterday. Cultures growing gram-negative rods White blood cell count went up very slightly today Continue antibiotics Regular diet N.p.o. after midnight. If WBC continues to climb, I will order a CT of the abdomen pelvis in the morning No acute surgical intervention at this time Medical management per hospitalist Attestations 2 Medical Necessity Statement*: Per primary Coding Level of Care Code Acute Code for Chg Fwd Diagnoses Pulmonary embolism I26.99 Status post cholecystectomy Z90.49 Status post endoscopic retrograde cholangiopancreatography Z98.890 Abscess, intra-abdominal, postoperative T81.43XA; K65.1
[2024-08-03 11:17] LABS: Partial Thromboplastin Time 84.6 SECONDS (23.9-36.7)
--- NOTE | 2024-08-03 15:11 | P.PN_ITS ---
Subjective 2 Subjective: She feels that she is been regaining strength. Abdomen still somewhat sore, but overall better. Vitals/I&O/Wt Last Vital Signs Temp 98.2 F 08/03/24 11:19 Pulse 73 08/03/24 11:19 Resp 16 08/03/24 11:19 BP 145/71 08/03/24 11:19 Pulse Ox 95 08/03/24 11:19 O2 Del Method Nasal Cannula 08/03/24 11:19 O2 Flow Rate 1.5 08/03/24 11:19 08/03/24 08/03/24 08/03/24 06:59 14:59 22:59 Intake Total 225.933 / 943.266 156.017 / 156.017 50 / 206.017 Balance 225.933 / 943.266 156.017 / 156.017 50 / 206.017 Weight last 48 hrs Weight 73.028 kg Weight 75.948 kg Physical Exam 2 Narrative: Accompanied by Son-in-law. Const: COMMON NORMALS: alert GENERAL APPEARANCE: cooperative O RIENTATION/CONSCIOUSNESS: Yes awake HENMT: COMMON NORMALS: oropharynx normal Neck/C-Spine: COMMON NORMALS: no JVD Resp: COMMON NORMALS: normal respiratory effort and clear to auscultation bilaterally AUSCULTATION: clear to auscultation bilaterally Cardio: COMMON NORMALS: no JVD, regular rhythm, S1 normal heart sound present, S2 normal heart sound present and No murmurs present (Cardio) RHYTHM: regular rhythm HEART SOUNDS: S1 normal heart sound present and S2 normal heart sound present GI: COMMON NORMALS: Normal to inspection, nondistended, normoactive bowel sounds present, Soft to palpation and non-tender PALPATION: Yes Soft to palpation OTHER: Right upper quadrant drain with old blood, pink diluted drainage in the tubing. Extremity: COMMON NORMALS: no joint enlargement and no pedal edema GENERAL: Yes edema (Trace) Neuro: COMMON NORMALS: moves all extremities SENSORIUM/ORIENTATION: Yes alert Skin: COMMON NORMALS: no rashes or lesions noted GENERAL SKIN EXAM: no rashes or lesions noted Data 08/03/24 03:11 08/03/24 03:11 Micro: Microbiology 08/01/24 13:45 Gram Stain - Final Peritoneal Fluid Body Fluid Culture - Preliminary Enterobacter hormaechei 07/31/24 10:40 Urine Culture - Final Urine,Clean Catch Enterobacter hormaechei A&P Assessment and plan (1) Hypertension: Qualifiers: Hypertension type: primary hypertension Qualified Code(s): I10 - Essential (primary) hypertension (2) Cardiovascular disease: (3) Pulmonary embolism: (4) Status post cholecystectomy: (5) Status post endoscopic retrograde cholangiopancreatography: (6) Intra-abdominal fluid collection: (7) CVA (cerebral vascular accident): (8) Alzheimer's dementia without behavioral disturbance: (9) History of seizures: (10) Abscess: Plan #Cholecystectomy postop day 10 #Status post biliary stent via ERCP 07/20 # Intra-abdominal fluid collection biloma versus abscess present #UTI #Dementia, currently on memory care unit at [place] #Bilateral pulmonary embolism #History of seizures #History of stroke #History of epilepsy #History of hypertension She is feeling stronger today. Reviewed vitals, CBC, PTT, CMP. Still persistent leukocytosis 3.7. Reviewed body fluid culture, positive for Enterobacter. Resistant to ceftriaxone, cefuroxime, intermediate sensitivity to imipenem. Sensitive to Zosyn. Discussed with surgery. She is going to be reassessed, drain stays in for today. Consideration of additional imaging with CT scan depending on condition for her. Continue to measure intake and output. Infected hematoma. Follow-up results. Reviewed blood culture, negative. Has been resumed on anticoagulation, some risk of bleeding discussed. Monitor for bleeding, monitor PTT. Repeat blood counts. Reviewed surgery note. Discussed with complex case manager. HIDA scan was unremarkable. Discussed with radiology. 2 collections, subhepatic and right colic gutter, as per discussion with surgery drain to be placed in the subhepatic collection. Small amount of free air also noted, but decreased from prior study. Discussed with complex case manager, nursing. ? Continue on Zosyn at this time Resume regular diet. Off IV fluid. Reviewed urine and blood cultures. UTI: Reviewed urine culture, noted Enterobacter growing which is resistant to Zosyn as well as 2 aztreonam, cefuroxime, ceftriaxone and nitrofurantoin. Will add ciprofloxacin. Follow-up urine culture. PE Continue anticoagulation, under physical bleeding. Transfer to medical surgical floor. ? Going forward patient will need Eliquis at discharge ? Reviewed echo. Grade 1 diastolic dysfunction. Mild AVS. Moderate TVR. Mild PVR. ? Continue patient's home lisinopril ? Hold aspirin at this time ? Seizure precautions, fall precautions DVT prophylaxis: SCD Attestations 2 Medical Necessity Statement*: Continue admission for assessment management of intra-abdominal hematoma collection, possible infected hematoma, IR drainage, also requiring anticoagulation for bilateral PE. UTI. Diagnoses Primary hypertension I10 Hypertension type: primary hypertension Cardiovascular disease I25.10 Pulmonary embolism I26.99 Status post cholecystectomy Z90.49 Status post endoscopic retrograde cholangiopancreatography Z98.890 Intra-abdominal fluid collection R18.8 CVA (cerebral vascular accident) I63.9 Alzheimer's dementia without behavioral disturbance G30.9; F02.80 History of seizures Z87.898 Abscess L02.91
[2024-08-03] MEDS: ciprofloxacin 400 MG/200 ML PREMIX 200 MG IV (16:06)
[2024-08-03] MEDS: heparin drip 25,000 UNIT/500 ML PREMIX 22 UNIT IV (19:44)
[2024-08-04] VITALS (10 sets, daily range): BP systolic 108–150; BP diastolic 66–86; PULSE 67–83; RESP 15–18; TEMP 36.6–37.6; O2SAT 91–97
[2024-08-04 01:14] LABS: Basophils % 0.3 %; Eosinophils # 0.1 10^3/uL (0.0-0.8); Eosinophils % 0.6 %; Hematocrit 30.2 % (36-47); Lymphocytes % 7.1 %; Mean Corpuscular HGB Conc 32.1 g/dL (30-55); Mean Corpuscular Hemoglobin 30.4 pg (27-33); Mean Corpuscular Volume 94.7 fl (85-98); Mean Platelet Volume 10.8 fL (7.4-10.4); Monocytes # 1.3 10^3/uL (0.2-0.9); Monocytes % 9.4 %; Neutrophils # 11.29 10^3/uL (1.8-7.7); Neutrophils % 81.4 %; Nucleated Red Blood Cells % 0 %; Platelet Count 355 10^3/cmm (157-399); Red Blood Count 3.19 10^6/uL (3.85-5.65); Red Cell Distribution Width 13.4 % (12.1-15.1); White Blood Count 13.86 10^3/uL (3.29-11.43)
[2024-08-04 01:25] LABS: Alanine Aminotransferase 36 U/L (0-33); Albumin Level 2.5 g/dL (3.5-5.2); Alkaline Phosphatase 240 U/L (35-105); Anion Gap 13.5 (5-19); Aspartate Amino Transferase 46 U/L (0-32); Blood Urea Nitrogen 6 mg/dL (8-23); Calcium 7.7 mg/dL (8.5-10.5); Carbon Dioxide 25 mmol/L (22-29); Chloride 97 mmol/L (98-107); Globulin 3.1 g/dL (1.3-4.6); Glucose 106 mg/dL (65-115); Osmolality Calculated 272 mOsm/kg (285-295); Potassium 3.5 mmol/L (3.5-5.1); Sodium 132 mmol/L (136-145); Total Bilirubin 0.4 mg/dL (0.15-1.2); Total Protein 5.6 g/dL (6.6-8.7)
[2024-08-04 01:30] LABS: Partial Thromboplastin Time 76.9 SECONDS (23.9-36.7)
[2024-08-04] MEDS: piperacillin-tazobactam 3.375 GM in sodium chloride 0.9% (plus) 50 ML IV ×3 (01:53→18:11)
[2024-08-04] MEDS: ciprofloxacin 400 MG/200 ML PREMIX 200 MG IV ×2 (03:52→16:08)
--- NOTE | 2024-08-04 05:48 | CTR_ITS ---
PROCEDURE INFORMATION: Exam: CT Chest With Contrast; Diagnostic Exam date and time: 08/04/2024 6:10 AM Age: 79 years old Clinical indication: Abnormal findings; Abnormal lab test; Elevated wbc; Abnormal diagnostic tests; Abnormal ekg; Prior surgery; Surgery date: <1 month; Surgery type: Gb; Additional info: High wbc TECHNIQUE: Imaging protocol: Diagnostic computed tomography of the chest with contrast. Radiation optimization: All CT scans at this facility use at least one of these dose optimization techniques: automated exposure control; mA and/or kV adjustment per patient size (includes targeted exams where dose is matched to clinical indication); or iterative reconstruction. Contrast material: OMNI 350; Contrast volume: 100 ml; Contrast route: INTRAVENOUS (IV); COMPARISON: CT angio chest w abd pel w con 07/31/2024 10:49 AM RADIATION DOSE METRICS: Total DLP (mGy-cm): 1242.64 FINDINGS: Lungs: Dense atelectasis in the dependent lower lobes on each side. Pleural spaces: Small/moderate bilateral pleural effusions. Heart: Unremarkable. No cardiomegaly. No pericardial effusion. Heart RV/LV ratio: RV LV ratio remains approximately 1. Lymph nodes: Unremarkable. No enlarged lymph nodes. Vasculature: Bilateral pulmonary emboli similar in extent and distribution as was seen previously. Bones/joints: Unremarkable. No acute fracture. Soft tissues: Unremarkable. PROCEDURE INFORMATION: Exam: CT Abdomen And Pelvis With Contrast Exam date and time: 08/04/2024 6:10 AM Age: 79 years old Clinical indication: Abnormal findings; Abnormal lab test; Elevated wbc; Abnormal diagnostic tests; Abnormal ekg; Prior surgery; Surgery date: <1 month; Surgery type: Gb; Additional info: High wbc TECHNIQUE: Imaging protocol: Computed tomography of the abdomen and pelvis with contrast. Radiation optimization: All CT scans at this facility use at least one of these dose optimization techniques: automated exposure control; mA and/or kV adjustment per patient size (includes targeted exams where dose is matched to clinical indication); or iterative reconstruction. Contrast material: OMNI 350; Contrast volume: 100 ml; Contrast route: INTRAVENOUS (IV); COMPARISON: CT angio chest w abd pel w con 07/31/2024 10:49 AM RADIATION DOSE METRICS: Total DLP (mGy-cm): 1242.64 FINDINGS: Tubes, catheters and devices: Percutaneous catheter in the gallbladder fossa. The previous fluid collection is smaller. Biliary stent. No biliary distension. Liver: Stable hepatic cysts. Gallbladder and biliary ducts: Predominantly drained fluid collection in the gallbladder fossa. Pancreas: Normal. No ductal dilation. Spleen: Normal. No splenomegaly. Adrenal glands: Normal. No mass. Kidneys and ureters: Peripelvic renal cysts. Stomach and bowel: Unremarkable. No obstruction. No mucosal thickening. Appendix: No evidence of appendicitis. Intraperitoneal space: Unremarkable. No free air. No significant fluid collection. Vasculature: Unremarkable. No abdominal aortic aneurysm. Lymph nodes: Unremarkable. No enlarged lymph nodes. Urinary bladder: Unremarkable as visualized. Reproductive: Fluid within the endometrial canal and within the vagina, abnormal given the patient's age. Correlate clinically. Bones/joints: Unremarkable. No acute fracture. Soft tissues: Prior abdominal surgery. CT/CT chest abdpel w/*[id number] IMPRESSION: 1. Stable pulmonary emboli. 2. Stable effusions as well as unchanged atelectasis or infiltrate in the lower lobes. IMPRESSION: Fluid within the endometrial cavity and vagina. Correlate clinically.
[2024-08-04] MEDS: iohexol 350 mg/mL 500 mL Btl (per mL) IV (06:25)
[2024-08-04 08:38] LABS: Partial Thromboplastin Time 45.5 SECONDS (23.9-36.7)
[2024-08-04] MEDS: heparin 5,000 unit/mL INJ 1 mL IVP (08:55)
[2024-08-04] MEDS: lisinopril 20 mg Tablet PO (08:57)
--- NOTE | 2024-08-04 13:37 | P.PN_ITS ---
Subjective 2 Subjective: Patient seen and examined. Not reporting any pain. CT done this morning shows no further intra-abdominal fluid collection Vitals/I&O/Wt Last Vital Signs Temp 98.0 F 08/04/24 11:41 Pulse 75 08/04/24 11:41 Resp 16 08/04/24 11:41 BP 113/70 08/04/24 11:41 Pulse Ox 93 08/04/24 11:41 O2 Del Method Room Air 08/04/24 11:41 O2 Flow Rate 1.5 08/04/24 07:26 08/03/24 08/04/24 08/04/24 22:59 06:59 14:59 Intake Total 588.05 / 744.067 380.533 / 1124.600 384.667 / 384.667 Balance 588.05 / 744.067 380.533 / 1124.600 384.667 / 384.667 Weight last 48 hrs Weight 161 lb Weight 161 lb Physical Exam 2 Narrative: General: No acute distress, oriented only to person Abdomen: Soft, moderately distended, minimally tender tender to palpation right upper quadrant, no guarding or rebound Drain: minimal output Data 08/04/24 00:55 08/04/24 00:55 Micro: Microbiology 08/01/24 13:45 Gram Stain - Final Peritoneal Fluid Body Fluid Culture - Final Enterobacter hormaechei A&P Assessment and plan (1) Pulmonary embolism: (2) Status post cholecystectomy: (3) Status post endoscopic retrograde cholangiopancreatography: (4) Abscess, intra-abdominal, postoperative: Plan Fluid collection has resolved and drain is no longer draining. Drain was removed and bandage placed. Keep dressing on for 48 hours and then remove No further surgical intervention General Surgery will sign off. Please reconsult if the need arises Medical management per hospitalist Attestations 2 Medical Necessity Statement*: Per primary Coding Level of Care Code 57056 Diagnoses Pulmonary embolism I26.99 Status post cholecystectomy Z90.49 Status post endoscopic retrograde cholangiopancreatography Z98.890 Abscess, intra-abdominal, postoperative T81.43XA; K65.1
--- NOTE | 2024-08-04 14:40 | USR_ITS ---
PROCEDURE INFORMATION: Exam: US Pelvis, Complete, Non-Obstetric Exam date and time: 08/04/2024 5:22 PM Age: 79 years old Clinical indication: Condition or disease; Uterine condition; Other: Fluid; Additional info: Uterine and vaginal fluid on CT reported TECHNIQUE: Imaging protocol: Transabdominal pelvic nonobstetric ultrasound. Complete exam. Real time ultrasound with image documentation. COMPARISON: US gall bladder [id number] 07/18/2024 6:16 PM FINDINGS: Uterus: The uterus is poorly visualized. Right ovary/adnexa: The right ovary is not visualized. No abnormalities noted in the right or left adnexa. Left ovary/adnexa: The left ovary is not visualized. Intraperitoneal space: No intraperitoneal fluid. Urinary bladder: Normal. US/US pelvic complete* [id number] IMPRESSION: 1. The uterus is poorly visualized. 2. The ovaries are not visualized. No masses identified in the adnexa.
--- NOTE | 2024-08-04 14:41 | P.PN_ITS ---
Subjective 2 Subjective: She had a restless night last night, today she is better. She is sleeping this morning. Vitals/I&O/Wt Last Vital Signs Temp 98.0 F 08/04/24 11:41 Pulse 75 08/04/24 11:41 Resp 16 08/04/24 11:41 BP 113/70 08/04/24 11:41 Pulse Ox 93 08/04/24 11:41 O2 Del Method Room Air 08/04/24 11:41 O2 Flow Rate 1.5 08/04/24 07:26 08/03/24 08/04/24 08/04/24 22:59 06:59 14:59 Intake Total 588.05 / 744.067 380.533 / 1124.600 434.667 / 434.667 Balance 588.05 / 744.067 380.533 / 1124.600 434.667 / 434.667 Weight last 48 hrs Weight 73.028 kg Weight 73.028 kg Physical Exam 2 Narrative: Accompanied by Son-in-law. Const: COMMON NORMALS: alert GENERAL APPEARANCE: cooperative O RIENTATION/CONSCIOUSNESS: Yes awake HENMT: COMMON NORMALS: oropharynx normal Neck/C-Spine: COMMON NORMALS: no JVD Resp: COMMON NORMALS: normal respiratory effort and clear to auscultation bilaterally AUSCULTATION: clear to auscultation bilaterally Cardio: COMMON NORMALS: no JVD, regular rhythm, S1 normal heart sound present, S2 normal heart sound present and No murmurs present (Cardio) RHYTHM: regular rhythm HEART SOUNDS: S1 normal heart sound present and S2 normal heart sound present GI: COMMON NORMALS: Normal to inspection, nondistended, normoactive bowel sounds present, Soft to palpation and non-tender PALPATION: Yes Soft to palpation OTHER: Right upper quadrant drain with minimal old blood, pink diluted drainage in the tubing. Extremity: COMMON NORMALS: no joint enlargement and no pedal edema GENERAL: Yes edema (Trace) Neuro: COMMON NORMALS: moves all extremities SENSORIUM/ORIENTATION: Yes alert Skin: COMMON NORMALS: no rashes or lesions noted GENERAL SKIN EXAM: no rashes or lesions noted Data 08/04/24 00:55 08/04/24 00:55 Micro: Microbiology 08/01/24 13:45 Gram Stain - Final Peritoneal Fluid Body Fluid Culture - Final Enterobacter hormaechei A&P Assessment and plan (1) Hypertension: Qualifiers: Hypertension type: primary hypertension Qualified Code(s): I10 - Essential (primary) hypertension (2) Cardiovascular disease: (3) Pulmonary embolism: (4) Status post cholecystectomy: (5) Status post endoscopic retrograde cholangiopancreatography: (6) Intra-abdominal fluid collection: (7) CVA (cerebral vascular accident): (8) Alzheimer's dementia without behavioral disturbance: (9) History of seizures: (10) Abscess: Plan #Cholecystectomy postop day 10 #Status post biliary stent via ERCP 07/20 # Intra-abdominal fluid collection biloma versus abscess present #UTI #Dementia, currently on memory care unit at [place] #Bilateral pulmonary embolism #History of seizures #History of stroke #History of epilepsy #History of hypertension She had a restless night per history obtained from her son-in-law. She is resting this morning. No additional new complaints. Reviewed vitals, CBC, PTT, CMP. CT chest abdomen pelvis was requested by surgery. Noted some persistent leukocytosis this morning. Reviewed CT chest abdomen pelvis, noted stable PE, stable effusions and unchanged atelectasis or infiltrate in the lower lobes. Incidentally noted fluid within endometrial cavity and vagina. Prescription with nursing staff has not had any abnormal uterine bleeding or spotting. Discussed with surgery. Discussed with patient and son-in-law, discussed further evaluation with pelvic ultrasound. Requested. Assess for possible endometritis. Additionally antibiotics have been broadened with ciprofloxacin given resistant organism in urine, with Enterobacter resistant to Zosyn. Continue IV antibiotics for now. Reassess condition. Follow-up ultrasound. Repeat blood counts. Discussed with therapeutic case manager. Discussed with nursing. As per discussion with surgery trial of advancement of diet and plans to remove drainage catheter Switch anticoagulation from heparin drip to 10 mg Eliquis twice daily. Monitor for risk of bleeding. Reassess blood counts. Reviewed surgery note. HIDA scan was unremarkable. Discussed with radiology. 2 collections, subhepatic and right colic gutter, as per discussion with surgery drain to be placed in the subhepatic collection. Small amount of free air also noted, but decreased from prior study. Discussed with therapeutic case manager, nursing. ? Continue on Zosyn at this time Resume regular diet. Off IV fluid. Reviewed urine and blood cultures. UTI: Reviewed urine culture, noted Enterobacter growing which is resistant to Zosyn as well as 2 aztreonam, cefuroxime, ceftriaxone and nitrofurantoin. Will add ciprofloxacin. Follow-up urine culture. PE Continue anticoagulation, under physical bleeding. Transfer to medical surgical floor. ? Going forward patient will need Eliquis at discharge ? Reviewed echo. Grade 1 diastolic dysfunction. Mild AVS. Moderate TVR. Mild PVR. ? Continue patient's home lisinopril ? Hold aspirin at this time ? Seizure precautions, fall precautions DVT prophylaxis: SCD Attestations 2 Medical Necessity Statement*: Continue admission for assessment management of possible additional foci of infection, infected hematoma, IR drainage, also requiring anticoagulation for bilateral PE. UTI. and High MDM includes amount and/or complexity of data reviewed/ordered [ resulted lab(s)/test(s), ordered lab(s)/test(s), independent historian and other healthcare professional discussion] and described risk of complication, morbidity or mortality of management as documented Diagnoses Primary hypertension I10 Hypertension type: primary hypertension Cardiovascular disease I25.10 Pulmonary embolism I26.99 Status post cholecystectomy Z90.49 Status post endoscopic retrograde cholangiopancreatography Z98.890 Intra-abdominal fluid collection R18.8 CVA (cerebral vascular accident) I63.9 Alzheimer's dementia without behavioral disturbance G30.9; F02.80 History of seizures Z87.898 Abscess L02.91
[2024-08-04 15:13] LABS: Partial Thromboplastin Time 65.1 SECONDS (23.9-36.7)
[2024-08-04] MEDS: apixaban 5 mg Tablet 10 MG PO (20:52)
[2024-08-05] VITALS (7 sets, daily range): BP systolic 141–158; BP diastolic 64–84; PULSE 65–83; RESP 16–18; TEMP 36.7–37.1; O2SAT 93–96
[2024-08-05] MEDS: piperacillin-tazobactam 3.375 GM in sodium chloride 0.9% (plus) 50 ML IV ×3 (01:01→18:27)
[2024-08-05] MEDS: ciprofloxacin 400 MG/200 ML PREMIX 200 MG IV ×2 (04:07→17:02)
[2024-08-05 04:54] LABS: Basophils # 0.1 10^3/uL (0.0-0.1); Basophils % 0.4 %; Eosinophils # 0.2 10^3/uL (0.0-0.8); Eosinophils % 1.1 %; Hematocrit 35.1 % (36-47); Lymphocytes # 0.8 10^3/uL (0.8-4.8); Lymphocytes % 5.8 %; Mean Corpuscular HGB Conc 31.6 g/dL (30-55); Mean Corpuscular Hemoglobin 30.1 pg (27-33); Mean Corpuscular Volume 95.1 fl (85-98); Mean Platelet Volume 10.9 fL (7.4-10.4); Monocytes # 1.3 10^3/uL (0.2-0.9); Monocytes % 8.9 %; Neutrophils # 11.52 10^3/uL (1.8-7.7); Neutrophils % 82.2 %; Nucleated Red Blood Cells % 0 %; Platelet Count 407 10^3/cmm (157-399); Red Blood Count 3.69 10^6/uL (3.85-5.65); Red Cell Distribution Width 13.3 % (12.1-15.1); White Blood Count 14.03 10^3/uL (3.29-11.43)
[2024-08-05 05:17] LABS: Alanine Aminotransferase 32 U/L (0-33); Albumin Level 2.2 g/dL (3.5-5.2); Alkaline Phosphatase 228 U/L (35-105); Aspartate Amino Transferase 34 U/L (0-32); Blood Urea Nitrogen 7 mg/dL (8-23); Calcium 7.8 mg/dL (8.5-10.5); Carbon Dioxide 21 mmol/L (22-29); Chloride 98 mmol/L (98-107); Creatinine Clr Calc Pharmacy 52.9218; Globulin 3.7 g/dL (1.3-4.6); Glucose 115 mg/dL (65-115); Osmolality Calculated 277 mOsm/kg (285-295); Sodium 134 mmol/L (136-145); Total Bilirubin 0.4 mg/dL (0.15-1.2); Total Protein 5.9 g/dL (6.6-8.7)
[2024-08-05 05:18] LABS: Anion Gap 18.4 (5-19); Potassium 3.4 mmol/L (3.5-5.1)
[2024-08-05] MEDS: acetaminophen 325 mg Tablet 650 MG PO (07:41)
[2024-08-05] MEDS: lisinopril 20 mg Tablet PO (07:42)
[2024-08-05] MEDS: apixaban 5 mg Tablet 10 MG PO ×2 (07:42→20:24)
--- NOTE | 2024-08-05 08:11 | US_ITS ---
WS: [id number] US transvaginal [id number] HISTORY: Uterine and vaginal fluid on CT reported COMPARISON: Transabdominal pelvic ultrasound 08/04/2024. Limited evaluation of the pelvic structures to evaluate the fluid in the endometrial canal and cul-de -sac. The patient has consented to do this procedure and the daughter is also present and consented. The uterus is midline and small caliber. Small nabothian cysts. There is a very minimal amount of flu id along the endometrial canal. Endometrium is less than 5 mm. No history of bleeding. No increased v ascularity. Very tiny amount of free fluid in the cul-de-sac. No significant residual fluid in the cervix or endometrium. US/US transvaginal [id number] IMPRESSION: 1. No significant amount of fluid in the endometrial canal or at the cervix. T he fluid described on the prior transabdominal ultrasound has resolved in the i nterval. 2. Minimal fluid in the cul-de-sac.
--- NOTE | 2024-08-05 09:58 | PC.SOCIAL ---
IMM Update pg 2 of IMM Updated and reviewed w/ patients son in law. Copy provided and copy dated, initialed and placed in chart.
[2024-08-05 10:16] LABS: Chlamydia Trachomatis RNA TMA NOT DETECTED (NOT DETECTED); Neisseria Gonorrhoeae RNA, TMA NOT DETECTED (NOT DETECTED)
[2024-08-05] MEDS: potassium chloride ER 20 mEq Tablet PO (11:12)
--- NOTE | 2024-08-05 13:16 | PC.NURSE ---
Attempted to call patient's daughter but was unable to waiter/waitress tourist class her at this time. Patient's states that she might be taking a nap.
--- NOTE | 2024-08-05 16:11 | PC.NURSE ---
Patient to Ultra sound at this time. Patient's Daughter with patient at this time.
--- NOTE | 2024-08-05 21:31 | P.PN_ITS ---
Subjective 2 Subjective: She is sleepy, however, today she does respond to voice, denies pain or discomfort. Denies any complaints. Vitals/I&O/Wt Last Vital Signs Temp 98.5 F 08/05/24 19:47 Pulse 83 08/05/24 19:47 Resp 16 08/05/24 19:47 BP 147/84 08/05/24 19:47 Pulse Ox 96 08/05/24 19:47 O2 Del Method Room Air 08/05/24 19:47 O2 Flow Rate 1.5 08/04/24 07:26 08/05/24 08/05/24 08/05/24 06:59 14:59 22:59 Intake Total 250 / 1369.467 168 / 168 450 / 618 Balance 250 / 1369.467 168 / 168 450 / 618 Weight last 48 hrs Weight 69.456 kg Weight 73.028 kg Physical Exam 2 Narrative: Accompanied by Son-in-law. Const: COMMON NORMALS: alert GENERAL APPEARANCE: cooperative O RIENTATION/CONSCIOUSNESS: Yes awake HENMT: COMMON NORMALS: oropharynx normal Neck/C-Spine: COMMON NORMALS: no JVD Resp: COMMON NORMALS: normal respiratory effort and clear to auscultation bilaterally AUSCULTATION: clear to auscultation bilaterally Cardio: COMMON NORMALS: no JVD, regular rhythm, S1 normal heart sound present, S2 normal heart sound present and No murmurs present (Cardio) RHYTHM: regular rhythm HEART SOUNDS: S1 normal heart sound present and S2 normal heart sound present GI: COMMON NORMALS: Normal to inspection, nondistended, normoactive bowel sounds present, Soft to palpation and non-tender PALPATION: Yes Soft to palpation OTHER: Right upper quadrant drain with minimal old blood, pink diluted drainage in the tubing. Extremity: COMMON NORMALS: no joint enlargement and no pedal edema GENERAL: Yes edema (Trace) Neuro: COMMON NORMALS: moves all extremities SENSORIUM/ORIENTATION: Yes alert Skin: COMMON NORMALS: no rashes or lesions noted GENERAL SKIN EXAM: no rashes or lesions noted Data 08/05/24 04:32 08/05/24 04:32 Micro: Microbiology 07/31/24 14:27 Blood Culture - Final Blood NO GROWTH AFTER 5 DAYS 07/31/24 10:04 Blood Culture - Final Blood NO GROWTH AFTER 5 DAYS A&P Assessment and plan (1) Hypertension: Qualifiers: Hypertension type: primary hypertension Qualified Code(s): I10 - Essential (primary) hypertension (2) Cardiovascular disease: (3) Pulmonary embolism: (4) Status post cholecystectomy: (5) Status post endoscopic retrograde cholangiopancreatography: (6) Intra-abdominal fluid collection: (7) CVA (cerebral vascular accident): (8) Alzheimer's dementia without behavioral disturbance: (9) History of seizures: (10) Abscess: Plan #Cholecystectomy postop day 10 #Status post biliary stent via ERCP 07/20 # Intra-abdominal fluid collection biloma versus abscess present #UTI #Dementia, currently on memory care unit at [place] #Bilateral pulmonary embolism #History of seizures #History of stroke #History of epilepsy #History of hypertension Reviewed vitals, CBC, CMP, pelvic ultrasound, discussed with patient's family, radiologist and surgery, as per discussion they have low suspicion for [place] uterine fistula. Discussed additional assessment by transvaginal ultrasound. If she is unable to consent, discussed with family, discussed risk, alternative options. On review of chest imaging, some atelectasis which appears possibly more like infiltrate, possible pneumonia. Per history obtained from son-in-law, so far no additional restlessness Additionally antibiotics have been broadened with ciprofloxacin given resistant organism in urine, with Enterobacter resistant to Zosyn. Continue IV antibiotics for now with Zosyn, ciprofloxacin. Monitor for risk of agranulocytosis, C. difficile infection. Reassess condition. Repeat blood counts. Discussed with skilled nursing case manager. Discussed with nursing. Otherwise collections improved including right paracolic gutter. Drain has been removed. Switched anticoagulation from heparin drip to 10 mg Eliquis twice daily. Monitor for risk of bleeding. Reassess blood counts. HIDA scan was unremarkable. Discussed with radiology. 2 collections, subhepatic and right colic gutter, as per discussion with surgery drain to be placed in the subhepatic collection. Small amount of free air also noted, but decreased from prior study. Discussed with skilled nursing case manager, nursing. ? Continue on Zosyn at this time Resume regular diet. Off IV fluid. Reviewed urine and blood cultures. UTI: Reviewed urine culture, noted Enterobacter growing which is resistant to Zosyn as well as 2 aztreonam, cefuroxime, ceftriaxone and nitrofurantoin. Will add ciprofloxacin. Follow-up urine culture. PE Continue anticoagulation, under physical bleeding. Transfer to medical surgical floor. ? Going forward patient will need Eliquis at discharge ? Reviewed echo. Grade 1 diastolic dysfunction. Mild AVS. Moderate TVR. Mild PVR. ? Continue patient's home lisinopril ? Hold aspirin at this time ? Seizure precautions, fall precautions DVT prophylaxis: SCD Attestations 2 Medical Necessity Statement*: Continue admission for assessment management of possible additional foci of infection, pneumonia, possible endometritis, infected hematoma, IR drainage, also requiring anticoagulation for bilateral PE. UTI. Diagnoses Primary hypertension I10 Hypertension type: primary hypertension Cardiovascular disease I25.10 Pulmonary embolism I26.99 Status post cholecystectomy Z90.49 Status post endoscopic retrograde cholangiopancreatography Z98.890 Intra-abdominal fluid collection R18.8 CVA (cerebral vascular accident) I63.9 Alzheimer's dementia without behavioral disturbance G30.9; F02.80 History of seizures Z87.898 Abscess L02.91
[2024-08-06] VITALS (10 sets, daily range): BP systolic 136–152; BP diastolic 62–78; PULSE 61–83; RESP 13–18; TEMP 36.6–36.8; O2SAT 95–97
[2024-08-06] MEDS: piperacillin-tazobactam 3.375 GM in sodium chloride 0.9% (plus) 50 ML IV ×3 (01:42→17:33)
[2024-08-06] MEDS: ciprofloxacin 400 MG/200 ML PREMIX 200 MG IV ×2 (03:16→15:22)
[2024-08-06 05:27] LABS: Basophils % 0.2 %; Eosinophils # 0.3 10^3/uL (0.0-0.8); Eosinophils % 2.2 %; Hematocrit 32.6 % (36-47); Lymphocytes % 8.1 %; Mean Corpuscular HGB Conc 32.5 g/dL (30-55); Mean Corpuscular Volume 95.3 fl (85-98); Mean Platelet Volume 10.7 fL (7.4-10.4); Monocytes # 1.1 10^3/uL (0.2-0.9); Monocytes % 8.7 %; Neutrophils # 9.81 10^3/uL (1.8-7.7); Neutrophils % 79.2 %; Nucleated Red Blood Cells % 0 %; Platelet Count 411 10^3/cmm (157-399); Red Blood Count 3.42 10^6/uL (3.85-5.65); Red Cell Distribution Width 13.4 % (12.1-15.1); White Blood Count 12.39 10^3/uL (3.29-11.43)
[2024-08-06 05:50] LABS: Alanine Aminotransferase 28 U/L (0-33); Albumin Level 2.5 g/dL (3.5-5.2); Alkaline Phosphatase 213 U/L (35-105); Anion Gap 14.1 (5-19); Aspartate Amino Transferase 29 U/L (0-32); Blood Urea Nitrogen 7 mg/dL (8-23); Calcium 7.8 mg/dL (8.5-10.5); Carbon Dioxide 23 mmol/L (22-29); Chloride 99 mmol/L (98-107); Globulin 3.4 g/dL (1.3-4.6); Glucose 124 mg/dL (65-115); Osmolality Calculated 275 mOsm/kg (285-295); Potassium 3.1 mmol/L (3.5-5.1); Sodium 133 mmol/L (136-145); Total Bilirubin 0.3 mg/dL (0.15-1.2); Total Protein 5.9 g/dL (6.6-8.7)
[2024-08-06] MEDS: lisinopril 20 mg Tablet PO (09:47)
[2024-08-06] MEDS: apixaban 5 mg Tablet 10 MG PO ×2 (09:48→20:00)
[2024-08-06 11:25] LABS: MRSA PCR OZH (swab) NOT DETECTED (Not Detecte)
--- NOTE | 2024-08-06 16:36 | PM.PN ---
Subjective Subjective: Per history obtained from her daughter she wakes up and becomes more alert, more her usual self. She is sleeping remote visit, wakes up to voice, denies pain or discomfort at rest, but with cough does have pain she describes in her gut . Vitals/I&O/Wt Last Vital Signs Temp 97.8 F 08/06/24 10:00 Pulse 83 08/06/24 12:00 Resp 14 08/06/24 12:00 BP 142/64 08/06/24 12:00 Pulse Ox 96 08/06/24 12:00 O2 Del Method Room Air 08/06/24 12:00 O2 Flow Rate 1.5 08/04/24 07:26 08/06/24 08/06/24 08/06/24 06:59 14:59 22:59 Intake Total 219.583 / 887.583 150.417 / 150.417 50 / 200.417 Balance 219.583 / 887.583 150.417 / 150.417 50 / 200.417 Weight last 48 hrs Weight 68.492 kg Weight 69.456 kg Physical Exam Narrative: Accompanied by daughter. Const: GENERAL APPEARANCE: cooperative ORIENTATION/CONSCIOUSNESS: Yes awake HENMT: COMMON NORMALS: oropharynx normal Neck/C-Spine: COMMON NORMALS: no JVD Resp: COMMON NORMALS: normal respiratory effort and clear to auscultation bilaterally AUSCULTATION: clear to auscultation bilaterally Cardio: COMMON NORMALS: no JVD, regular rhythm, S1 normal heart sound present, S2 normal heart sound present and No murmurs present (Cardio) RHYTHM: regular rhythm HEART SOUNDS: S1 normal heart sound present and S2 normal heart sound present GI: COMMON NORMALS: Normal to inspection, nondistended, normoactive bowel sounds present, Soft to palpation and non-tender (Nontender to palpation, but winces with cough.) PALPATION: Yes Soft to palpation OTHER: Right upper quadrant drain has been removed. Extremity: COMMON NORMALS: no joint enlargement and no pedal edema GENERAL: Yes edema (Trace) Neuro: COMMON NORMALS: moves all extremities Skin: COMMON NORMALS: no rashes or lesions noted GENERAL SKIN EXAM: no rashes or lesions noted Data 08/06/24 04:24 08/06/24 04:24 Micro: Microbiology 08/06/24 11:42 Blood Culture - Preliminary Blood SPECIMEN COLLECTED 08/06/24 10:06 Blood Culture - Preliminary Blood SPECIMEN COLLECTED 07/31/24 14:27 Blood Culture - Final Blood NO GROWTH AFTER 5 DAYS 07/31/24 10:04 Blood Culture - Final Blood NO GROWTH AFTER 5 DAYS A&P Assessment and plan (1) Hypertension: Qualifiers: Hypertension type: primary hypertension Qualified Code(s): I10 - Essential (primary) hypertension (2) Cardiovascular disease: (3) Pulmonary embolism: (4) Status post cholecystectomy: (5) Status post endoscopic retrograde cholangiopancreatography: (6) Intra-abdominal fluid collection: (7) CVA (cerebral vascular accident): (8) Alzheimer's dementia without behavioral disturbance: (9) History of seizures: (10) Abscess: Plan #Cholecystectomy postop day 10 #Status post biliary stent via ERCP 07/20 # Intra-abdominal fluid collection biloma versus abscess present #UTI #Dementia, currently on memory care unit at [place] #Bilateral pulmonary embolism #History of seizures #History of stroke #History of epilepsy #History of hypertension Still abdominal pain with cough, leukocytosis with persistent but slight improvement down to 12.39. Continue treatment of suspected intra-abdominal infection, with infected subhepatic hematoma and smaller collection in the right colic gutter. Possible surgical/postinfection inflammation, but discussed with her daughter, will monitor closely further response to treatment. Continue IV antibiotics at current time. From history obtained from her daughter she is improving in terms of mental status. Drain has been removed. Will ask to get her up to chair. Discussed with her daughter regarding suspected concomitant pneumonia. Requested incentive spirometer. Continue Zosyn, ciprofloxacin at current time. Reassess. Reviewed vaginal ultrasound, uterine and vaginal collections noted resolved. Reviewed vitals, CBC, CMP. Continue to monitor vitals. Repeat blood counts. Hypokalemia: Requesting replacement. Recheck potassium. Check magnesium. PE: Switched anticoagulation from heparin drip to 10 mg Eliquis twice daily. Monitor for risk of bleeding. Reassess blood counts. Reviewed urine and blood cultures. UTI: Complicated UTI with resistant organism, continue ciprofloxacin. Possible source of infection that seeded the hematoma versus infection after removal of the gallbladder and secondary UTI. Follow-up urine culture. ? Continue patient's home lisinopril ? Hold aspirin at this time ? Seizure precautions, fall precautions Attestations Medical Necessity Statement*: Continue admission for assessment management of possible additional foci of infection, pneumonia, possible endometritis, infected hematoma, IR drainage, also requiring anticoagulation for bilateral PE. UTI. Diagnoses Primary hypertension I10 Hypertension type: primary hypertension Cardiovascular disease I25.10 Pulmonary embolism I26.99 Status post cholecystectomy Z90.49 Status post endoscopic retrograde cholangiopancreatography Z98.890 Intra-abdominal fluid collection R18.8 CVA (cerebral vascular accident) I63.9 Alzheimer's dementia without behavioral disturbance G30.9; F02.80 History of seizures Z87.898 Abscess L02.91
[2024-08-06] MEDS: potassium chloride ER 20 mEq Tablet PO (17:33)
[2024-08-07] VITALS (11 sets, daily range): BP systolic 114–147; BP diastolic 62–82; PULSE 62–97; RESP 15–18; TEMP 36.1–36.8; O2SAT 95–97
[2024-08-07] MEDS: acetaminophen 325 mg Tablet 650 MG PO (00:24)
[2024-08-07] MEDS: piperacillin-tazobactam 3.375 GM in sodium chloride 0.9% (plus) 50 ML IV ×2 (00:57→11:41)
[2024-08-07] MEDS: ciprofloxacin 400 MG/200 ML PREMIX 200 MG IV ×2 (02:41→15:56)
[2024-08-07 04:49] LABS: Basophils # 0.1 10^3/uL (0.0-0.1); Basophils % 0.6 %; Eosinophils # 0.3 10^3/uL (0.0-0.8); Eosinophils % 2.9 %; Hematocrit 35.2 % (36-47); Lymphocytes # 1.1 10^3/uL (0.8-4.8); Lymphocytes % 10.2 %; Mean Corpuscular HGB Conc 31.5 g/dL (30-55); Mean Corpuscular Hemoglobin 30.5 pg (27-33); Mean Corpuscular Volume 96.7 fl (85-98); Mean Platelet Volume 10.6 fL (7.4-10.4); Monocytes # 1.1 10^3/uL (0.2-0.9); Monocytes % 10.7 %; Neutrophils % 73.5 %; Nucleated Red Blood Cells % 0 %; Platelet Count 452 10^3/cmm (157-399); Red Blood Count 3.64 10^6/uL (3.85-5.65); Red Cell Distribution Width 13.5 % (12.1-15.1); White Blood Count 10.61 10^3/uL (3.29-11.43)
[2024-08-07 05:10] LABS: Alanine Aminotransferase 29 U/L (0-33); Albumin Level 2.4 g/dL (3.5-5.2); Alkaline Phosphatase 185 U/L (35-105); Anion Gap 12.5 (5-19); Aspartate Amino Transferase 20 U/L (0-32); Blood Urea Nitrogen 7 mg/dL (8-23); Calcium 8.1 mg/dL (8.5-10.5); Carbon Dioxide 23 mmol/L (22-29); Chloride 101 mmol/L (98-107); Glucose 105 mg/dL (65-115); Osmolality Calculated 274 mOsm/kg (285-295); Potassium 3.5 mmol/L (3.5-5.1); Sodium 133 mmol/L (136-145); Total Bilirubin 0.3 mg/dL (0.15-1.2); Total Protein 6.4 g/dL (6.6-8.7)
[2024-08-07 05:58] LABS: Magnesium 2.1 mg/dL (1.7-2.3)
[2024-08-07] MEDS: apixaban 5 mg Tablet 10 MG PO ×2 (08:48→20:21)
[2024-08-07] MEDS: lisinopril 20 mg Tablet PO (08:48)
--- NOTE | 2024-08-07 13:38 | PM.PN ---
Vitals/I&O/Wt Last Vital Signs Temp 97.7 F 08/07/24 12:00 Pulse 89 08/07/24 12:00 Resp 18 08/07/24 12:00 BP 145/75 08/07/24 12:00 Pulse Ox 96 08/07/24 12:00 O2 Del Method Room Air 08/07/24 12:00 O2 Flow Rate 1.5 08/04/24 07:26 08/06/24 08/07/24 08/07/24 22:59 06:59 14:59 Intake Total 300 / 450.417 250.000 / 700.417 120 / 120 Balance 300 / 450.417 250.000 / 700.417 120 / 120 Weight last 48 hrs Weight 68.492 kg Weight 68.492 kg Physical Exam Const: COMMON NORMALS: alert GENERAL APPEARANCE: cooperative ORIENTATION/CONSCIOUSNESS: Yes awake HENMT: COMMON NORMALS: oropharynx normal Neck/C-Spine: COMMON NORMALS: no JVD Resp: COMMON NORMALS: normal respiratory effort and clear to auscultation bilaterally AUSCULTATION: clear to auscultation bilaterally Cardio: COMMON NORMALS: no JVD, regular rhythm, S1 normal heart sound present, S2 normal heart sound present and No murmurs present (Cardio) RHYTHM: regular rhythm HEART SOUNDS: S1 normal heart sound present and S2 normal heart sound present GI: COMMON NORMALS: Normal to inspection, nondistended, normoactive bowel sounds present, Soft to palpation and non-tender (Nontender to palpation, but winces with cough.) PALPATION: Yes Soft to palpation OTHER: Right upper quadrant drain has been removed. Extremity: COMMON NORMALS: no joint enlargement and no pedal edema GENERAL: Yes edema (Trace) Neuro: COMMON NORMALS: moves all extremities SENSORIUM/ORIENTATION: Yes alert Skin: COMMON NORMALS: no rashes or lesions noted GENERAL SKIN EXAM: no rashes or lesions noted Data 08/07/24 04:33 08/07/24 04:33 Micro: Microbiology 08/06/24 11:42 Blood Culture - Preliminary Blood NEGATIVE TO DATE 08/06/24 10:06 Blood Culture - Preliminary Blood NEGATIVE TO DATE A&P Assessment and plan (1) Hypertension: Qualifiers: Hypertension type: primary hypertension Qualified Code(s): I10 - Essential (primary) hypertension (2) Cardiovascular disease: (3) Pulmonary embolism: (4) Status post cholecystectomy: (5) Status post endoscopic retrograde cholangiopancreatography: (6) Intra-abdominal fluid collection: (7) CVA (cerebral vascular accident): (8) Alzheimer's dementia without behavioral disturbance: (9) History of seizures: (10) Abscess: Plan #Cholecystectomy #Status post biliary stent via ERCP 07/20 # Intra-abdominal Infected hematoma #UTI #Dementia, currently on memory care unit at [place] #Bilateral pulmonary embolism #History of seizures #History of stroke #History of epilepsy #History of hypertension Infected subhepatic hematoma: discussed with nursing staff, up to chair. She is still having global tenderness right side abdomen. Reviewed vitals, CBC, today afebrile, leukocytosis has resolved today. Continue IV antibiotics today, reassess vitals, CBC, condition, if continues to improve, consideration may be for discharge back to assisted living tomorrow to complete antibiotics with oral regimen, likely would consider a longer course following infected hematoma, difficult postoperative course. Diarrheal bowel movements today, requested C. difficile. Reviewed reviewed blood cultures, remaining negative. Continue ciprofloxacin given resistance of the organism in urine. Will stop Zosyn. Continue Flagyl empirically for now. Check procalcitonin. Additional small correction in right paracolic gutter: has been decreasing on repeat imaging. Continue antibiotics. Pneumonia: Doing better on oxygenation, down to room air. She is overall more responsive. Will get her up to chair. Reassess oxygenation, blood counts. Uterine and vaginal fluid: Incidentally noted on CT. Pelvic ultrasound could not visualize uterus. Vaginal ultrasound shows that collections resolved. Reviewed vitals, CBC, CMP. Continue to monitor vitals. Repeat blood counts. Diarrhea: Loose bowel movements today. Sent for C. difficile. Hypokalemia: Requesting replacement. Recheck potassium. Check magnesium. PE: Switched anticoagulation from heparin drip to 10 mg Eliquis twice daily. Monitor for risk of bleeding. Reassess blood counts. UTI: Complicated UTI with resistant organism, continue ciprofloxacin. Possible source of infection that seeded the hematoma versus infection after removal of the gallbladder and secondary UTI. Follow-up urine culture. ? Continue patient's home lisinopril ? Hold aspirin at this time ? Seizure precautions, fall precautions Attestations Medical Necessity Statement*: Continue admission for assessment management of possible additional foci of infection, pneumonia, possible endometritis, infected hematoma, IR drainage, also requiring anticoagulation for bilateral PE. UTI. Diagnoses Primary hypertension I10 Hypertension type: primary hypertension Cardiovascular disease I25.10 Pulmonary embolism I26.99 Status post cholecystectomy Z90.49 Status post endoscopic retrograde cholangiopancreatography Z98.890 Intra-abdominal fluid collection R18.8 CVA (cerebral vascular accident) I63.9 Alzheimer's dementia without behavioral disturbance G30.9; F02.80 History of seizures Z87.898 Abscess L02.91
[2024-08-07 14:31] LABS: C.Diff PCR (Lab) NEGATIVE (Negative)
[2024-08-08] VITALS: BP 134/79; PULSE 75; RESP 15; TEMP 36.8; O2SAT 96
[2024-08-08] MEDS: ciprofloxacin 400 MG/200 ML PREMIX 200 MG IV (03:39)
[2024-08-08 04:00] VITALS: BP 133/69; PULSE 68; RESP 17; TEMP 36.4; O2SAT 95
[2024-08-08] MEDS: sodium chloride 0.9% 500 ML 150 ML IV (04:34)
[2024-08-08 04:54] LABS: Basophils # 0.1 10^3/uL (0.0-0.1); Basophils % 0.9 %; Eosinophils # 0.3 10^3/uL (0.0-0.8); Eosinophils % 3.3 %; Hematocrit 36.1 % (36-47); Lymphocytes # 1.4 10^3/uL (0.8-4.8); Lymphocytes % 13.9 %; Mean Corpuscular HGB Conc 30.5 g/dL (30-55); Mean Corpuscular Hemoglobin 30.7 pg (27-33); Mean Corpuscular Volume 100.8 fl (85-98); Mean Platelet Volume 11.2 fL (7.4-10.4); Monocytes # 1.1 10^3/uL (0.2-0.9); Monocytes % 11.1 %; Neutrophils # 6.93 10^3/uL (1.8-7.7); Nucleated Red Blood Cells % 0 %; Platelet Count 428 10^3/cmm (157-399); Red Blood Count 3.58 10^6/uL (3.85-5.65); Red Cell Distribution Width 13.8 % (12.1-15.1)
[2024-08-08 05:28] LABS: Albumin Level 2.8 g/dL (3.5-5.2); Alkaline Phosphatase 181 U/L (35-105); Blood Urea Nitrogen 12 mg/dL (8-23); Calcium 7.8 mg/dL (8.5-10.5); Carbon Dioxide 22 mmol/L (22-29); Chloride 101 mmol/L (98-107); Globulin 2.8 g/dL (1.3-4.6); Glucose 107 mg/dL (65-115); Osmolality Calculated 280 mOsm/kg (285-295); Sodium 135 mmol/L (136-145); Total Bilirubin 0.3 mg/dL (0.15-1.2); Total Protein 5.6 g/dL (6.6-8.7)
[2024-08-08 05:29] LABS: Alanine Aminotransferase 26 U/L (0-33); Anion Gap 16.2 (5-19); Aspartate Amino Transferase 31 U/L (0-32); Potassium 4.2 mmol/L (3.5-5.1)
[2024-08-08 07:46] VITALS: PULSE 65; RESP 18; O2SAT 97
[2024-08-08 08:00] VITALS: BP 129/62; PULSE 67; RESP 17; TEMP 36.7; O2SAT 96
[2024-08-08] MEDS: lisinopril 20 mg Tablet PO (09:41)
[2024-08-08] MEDS: apixaban 5 mg Tablet 10 MG PO (09:41)
[2024-08-08 11:38] VITALS: BP 138/63; PULSE 63; RESP 17; TEMP 36.4; O2SAT 98
--- NOTE | 2024-08-08 11:57 | PC.SOCIAL ---
IMM Update pg 2 of IMM Updated and reviewed w/ patient's daughter. Copy provided and copy dated, initialed and placed in chart.
--- NOTE | 2024-08-08 12:05 | PM.DCS ---
Discharge Providers Date of Admission: 07/31/24 12:49 Date of Discharge: August 08, 2024 Attending Provider at Admission: Amber Orosco MD Attending Provider at Discharge: Maryan Martinez MD Primary Care Provider: Robe Wagner MD Diagnoses at Discharge Discharge Diagnosis (1) Hypertension: Status: Acute Qualifiers: Hypertension type: primary hypertension Qualified Code(s): I10 - Essential (primary) hypertension (2) Cardiovascular disease: Status: Acute (3) Pulmonary embolism: Status: Acute (4) Status post cholecystectomy: Status: Acute (5) Status post endoscopic retrograde cholangiopancreatography: Status: Acute (6) Intra-abdominal fluid collection: Status: Acute (7) CVA (cerebral vascular accident): Status: Acute (8) Alzheimer's dementia without behavioral disturbance: Status: Acute (9) History of seizures: Status: Acute (10) Abscess: Status: Acute Reason for Visit Reason for Visit: SOB Hospital Course Hospital Course 79F with dementia living on memory care unit at [facility]. patient has a recent history of acute cholecystitis and choledocholithiasis on July 20, 2024 for which she underwent CBD stenting and acute cholecystectomy on July 20, 2024 at [place]. She was discharged the next day on oral cefdinir and metronidazole for the next 3 days. she has been increasingly weak since her surgery, Not ambulating as much as usual. She presented to the hospital on August 01, 2024 after being sent from the [facility] due to concerns for pneumonia. CT of the chest was performed which did not show any gross consolidation, however did reveal bilateral PE. Additionally she was found to have new fluid collection in the gallbladder fossa extending inferiorly down the right paracolic gutter. The main portion of the collection in the gallbladder fossa measures about 5.2 x 3.6 cm. The main portion of the fluid collection in the right paracolic gutter measured 4.5 x 2.3 cm. The findings were concerning for a postop biloma versus abscess. This was further Assessed by HIDA scan which did not show any biliary leak, therefore biloma was excluded.? She underwent IR guided drain placement on 08/01/24 with placement of a 8 Egyptian pigtail catheter in the subhepatic collection. Thick clotted blood was removed. Approximately 25 cc of dark red and partially clotted material removed. culture growing Enterobacter hormaechei. She received treatment with iv Zosyn which was changed to iv Cipro. ?Blood cultures remained negative during admission. On repeat CT on 08/04 subhepatic and right colic collections with improvement.? IR drain was removed by general surgery on 08/04 , output was minimal. He leukocytosis is now resolved. She is no longer febrile. Able to tolerate po intake. recommend GI soft diet at discharge, to be advanced as tolerated. close Follow up recommended with GI in [place]. Discharge abx to include oral ciprofloxacin 500mg BID and metronidazole 500mg BID for the next 10 days. For he PE, she was treated with heparin drip intially, transitioned to oral Eliquis 10 mg BID. Today is day 5/7. To continue 10mg BID for 2 more days and then reduce dose to 5mg BID for 3 months. She is deconditioned from her recent hospital stays. To be discharged back to [facility] today, Patient's daughter reports that she is scheduled to start PT soon. ASA 81mg was discontinued to minize risk of bleeding with Elqiuis. Reviewed patient's chart from December 2022 admission when she was admitted due to concern for NSTEMI. She had angiogram on January 05, 2023 which did not reveal any significant disease in the Left Main, Left Anterior Descending, Right, or Circumflex coronary arteries. Physical Exam Narrative: General: No acute distress, AO x3 HEENT: PERRLA, pupils bilaterally equal and reactive, pallors not present Chest: Normal vesicular breath sounds, no added sounds, equal good air entry bilaterally CVS: S1-S2 regular, no murmurs, no tachycardia, no gallops, no rubs Abdomen: Soft, nontender, no organomegaly, bowel sounds present, wounds from recent lap access appear clean and dry , no dehiscence Neuro: No focal deficits, no facial deformity, AO x3, power 5/5 in all limbs Extremities: no edema., clubbing or cyanosis Discharge Data Studies Completed and Pending Completed Studies During Hospitalization Category Date Time Status CT angio chest w abd pel w con Stat Cat Scan 07/31/24 10:[address] chest abdomen pelvis [CT chest abdpel w/*[id number] Cat Scan 08/04/24 05:48 Completed ] Routine CXRP [XR chest 1V portable [id number]] Stat Exams 07/31/24 09:46 Completed NM hepatobiliary wo phar [id number] Routine Nuc Med 08/01/24 13:37 Completed CV. echo complete* [id number] Routine Ultrasound 07/31/24 16:42 Completed US pelvic complete* [id number] Routine Ultrasound 08/04/24 14:40 Com[address] US peritoneal fl dr nichols [id number] Routine Ultrasound 08/01/24 12:26 Completed US transvaginal [id number] Routine Ultrasound 08/05/24 08:11 Completed Pending at discharge Category Date Time Status Blood Culture Stat Lab 08/06/24 11:42 Results Sputum Culture and Gram Stain Stat Lab 07/31/24 16:42 Uncollected Urine Culture Stat Lab 08/04/24 02:58 Ordered Radiology Impressions Chest X-Ray 07/31/24 09:46 IMPRESSION: Tiny bilateral pleural effusions suspected, otherwise clear chest. Drainage Catheter Insertion 08/01/24 12:26 IMPRESSION: 1. Uncomplicated placement of an 8 Egyptian pigtail catheter in the subhepatic collection. Thick clotted blood was removed. The entire cavity did not drain and the catheter became obstructed. Catheter was flushed with sterile saline. 2. Approximately 25 cc of dark red and partially clotted bladder removed initially. Specimen was sent for culture and sensitivity. 3. It will be important to flush this catheter with sterile saline to ensure it does not become obstructed. If culture and sensitivity are negative this catheter should be removed. Hepatobiliary Scan Nuclear Medicine 08/01/24 13:37 IMPRESSION: 1. No extrahepatic collection of radionuclide. 2. Patent common bile duct. Chest/Abdomen/Pelvis CT 08/04/24 05:48 IMPRESSION: 1. Stable pulmonary emboli. 2. Stable effusions as well as unchanged atelectasis or infiltrate in the lower lobes. IMPRESSION: Fluid within the endometrial cavity and vagina. Correlate clinically. Pelvis Ultrasound 08/04/24 14:40 IMPRESSION: 1. The uterus is poorly visualized. 2. The ovaries are not visualized. No masses identified in the adnexa. Transvaginal US 08/05/24 08:11 IMPRESSION: 1. No significant amount of fluid in the endometrial canal or at the cervix. The fluid described on the prior transabdominal ultrasound has resolved in the interval. 2. Minimal fluid in the cul-de-sac. Laboratory Results WBC 10.20 10^3/uL (3.29-11.43) 08/08/24 03:24 RBC 3.58 10^6/uL (3.85-5.65) L 08/08/24 03:24 Hgb 11.00 g/dL (11.27-16.99) L 08/08/24 03:24 Hct 36.1 % (36-47) 08/08/24 03:24 MCV 100.8 fl (85-98) H 08/08/24 03:24 MCH 30.7 pg (27-33) 08/08/24 03:24 MCHC 30.5 g/dL (30-55) 08/08/24 03:24 RDW 13.8 % (12.1-15.1) 08/08/24 03:24 Plt Count 428 10^3/cmm (157-399) H 08/08/24 03:24 MPV 11.2 fL (7.4-10.4) H 08/08/24 03:24 Neut % (Auto) 68.0 % 08/08/24 03:24 Lymph % (Auto) 13.9 % 08/08/24 03:24 [facility] % (Auto) 11.1 % 08/08/24 03:24 Eos % (Auto) 3.3 % 08/08/24 03:24 Baso % (Auto) 0.9 % 08/08/24 03:24 Neut # (Auto) 6.93 10^3/uL (1.8-7.7) 08/08/24 03:24 Lymph # (Auto) 1.4 10^3/uL (0.8-4.8) 08/08/24 03:24 [facility] # (Auto) 1.1 10^3/uL (0.2-0.9) H 08/08/24 03:24 Eos # (Auto) 0.3 10^3/uL (0.0-0.8) 08/08/24 03:24 Baso # (Auto) 0.1 10^3/uL (0.0-0.1) 08/08/24 03:24 Nucleated RBC % (auto) 0 % 08/08/24 03:24 Nucleated RBCs # 0.0 /100WBC 08/08/24 03:24 ESR 53 mm/hr (0-15) H 07/31/24 10:04 PT 15.50 SECONDS (12.1-14.9) H 08/01/24 06:02 INR 1.19 (0.8-1.2) 08/01/24 06:02 APTT 65.1 SECONDS (23.9-36.7) H 08/04/24 14:25 Sodium 135 mmol/L (136-145) L 08/08/24 03:24 Potassium 4.2 mmol/L (3.5-5.1) 08/08/24 03:24 Chloride 101 mmol/L (98-107) 08/08/24 03:24 Carbon Dioxide 22 mmol/L (22-29) 08/08/24 03:24 Anion Gap 16.2 (5-19) 08/08/24 03:24 BUN 12 mg/dL (8-23) 08/08/24 03:24 Creatinine 0.6 mg/dL (0.5-0.9) 08/08/24 03:24 GFR Calculation Not Reportable 08/08/24 03:24 Glucose 107 mg/dL (65-115) 08/08/24 03:24 Calculated Osmolality 280 mOsm/kg (285-295) L 08/08/24 03:24 Lactic Acid 1.5 mmol/L (0.5-2.2) 07/31/24 10:04 Calcium 7.8 mg/dL (8.5-10.5) L 08/08/24 03:24 Magnesium 2.1 mg/dL (1.7-2.3) 08/07/24 04:33 Total Bilirubin 0.3 mg/dL (0.15-1.2) 08/08/24 03:24 AST 31 U/L (0-32) 08/08/24 03:24 ALT 26 U/L (0-33) 08/08/24 03:24 Alkaline Phosphatase 181 U/L (35-105) H 08/08/24 03:24 Troponin T Baseline 106 ng/L (0-10) H* 07/31/24 10:04 Troponin T 120 Minute 89.95 ng/L (0-10) H 07/31/24 12:06 Delta Troponin T -16.05 ABS# (0-10) L 07/31/24 12:06 Troponin T Hi Sens 6Hr 92.04 ng/L (0-10) H 07/31/24 17:12 Troponin T Hi Sens 6Hr Delta -13.96 ng/L (0-12) L 07/31/24 17:12 C-Reactive Protein 319.7 mg/L (0.0-4.9) H 08/01/24 06:02 NT-Pro-B Natriuret Pep 2108 pg/mL (0-450) H 07/31/24 10:04 Total Protein 5.6 g/dL (6.6-8.7) L 08/08/24 03:24 Albumin 2.8 g/dL (3.5-5.2) L 08/08/24 03:24 Globulin 2.8 g/dL (1.3-4.6) 08/08/24 03:24 Procalcitonin 0.30 ng/mL (0-0.5) 08/08/24 03:24 Urine Color Dark yellow (Yellow) A 07/31/24 10:40 Urine Appearance Cloudy (CLEAR) A 07/31/24 10:40 Urine pH 6.0 (5-7) 07/31/24 10:40 Ur Specific [place] 1.018 (1.005-1.030) 07/31/24 10:40 Urine Protein 2+ (Negative) A 07/31/24 10:40 Urine Glucose (UA) Negative (Normal) 07/31/24 10:40 Urine Ketones 2+ (Negative) H 07/31/24 10:40 Urine Blood 2+ (Negative) A 07/31/24 10:40 Urine Nitrate Negative (Negative) 07/31/24 10:40 Urine Bilirubin Negative (Negative) 07/31/24 10:40 Urine Urobilinogen 1.0 mg/dL (Negative) 07/31/24 10:40 Ur Leukocyte Esterase 1+ (Negative) A 07/31/24 10:40 Urine RBC 11-20 /hpf (0-2) H 07/31/24 10:40 Urine WBC 51-100 /hpf (0-5) H 07/31/24 10:40 Ur Squamous Epith Cells 0-5 /hpf (0-5) 07/31/24 10:40 Amorphous Sediment Not Reportable 07/31/24 10:40 Urine Bacteria None seen /hpf (NONE) 07/31/24 10:40 Hyaline Casts 1.65 /lpf 07/31/24 10:40 Nasal MRSA (PCR) Not detected (Not Detecte) 08/06/24 09:55 C.trachomatis RNA (TMA) Not detected (NOT DETECTED) 08/04/24 15:44 Chlamydia/GC Comment See note 08/04/24 15:44 C. difficile (PCR) Negative (Negative) 08/07/24 13:05 N.gonorrhoeae RNA (TMA) Not detected (NOT DETECTED) 08/04/24 15:44 Patient: Ester Beasley Unit #: [id number] : 1945 Age/Sex: 77 / F ADM Date: 01/04/23 Loc: CSU Ordering Provider/Ordering MD: David Sheppard MD Date of Service: 01/05/23 Procedure(s): EXPERIENCE DESIGN DIRECTOR request for service Accession Number(s): [id number] Report Number: [id number] Exam Room: [facility] Ht: 157 cm Wt: 64 kg BSA: 1.69 m2 Gender: Female : 1945 Any Known Allergies: Eggs Exam Priority: Routine Procedure(s): Procedure Description: Diagnostic procedure Procedure Description: Left Heart Catheterization Procedure Description: Coronary Angiography Diagnostic Cath Status: Urgent Diagnostic Findings * INDICATION: NSTEMI/ Syncope. * No significant disease noted in the Left Main, Left Anterior Descending, Right, or Circumflex coronary arteries. * Coronary angiography shows right dominance. Conclusions 1. No significant disease noted in the Left Main, Left Anterior Descending, Right, or Circumflex coronary arteries. Recommendations * Aggressive risk factor modification. * Outpatient cardiology follow up in 4 weeks. Vitals Last Vital Signs Temp 97.6 F 08/08/24 11:38 Pulse 63 08/08/24 11:38 Resp 17 08/08/24 11:38 BP 138/63 08/08/24 11:38 Pulse Ox 98 08/08/24 11:38 O2 Del Method Room Air 08/08/24 11:38 O2 Flow Rate 1.5 08/04/24 07:26 Discharge Plan Discharge Patient Disposition: Xfer SNF Condition: Stable Prescriptions: New ondansetron HCl 4 mg tablet 4 mg PO Q8H PRN (Reason: nausea and vomiting) 5 Days Qty: 15 0RF Eliquis 5 mg Tablet 5 mg PO BID@0900,2100 90 Days Qty: 180 0RF Rx Instructions: take 10mg BID for 2 days, then reduce dose to 5mg BID ciprofloxacin HCl [Cipro] 500 mg tablet 500 mg PO BID 10 Days Qty: 20 0RF metronidazole 500 mg tablet 500 mg PO BID 10 Days Qty: 20 0RF Continued lisinopril 20 mg tablet 20 mg PO DAILY@08 mirtazapine 7.5 mg tablet 7.5 mg PO BEDTIME@20 hydrocodone-acetaminophen 5-325 mg tablet 1 tab PO Q4H PRN (Reason: pain) Qty: 30 0RF Discontinued aspirin 81 mg tablet,delayed release (DR/EC) 81 mg PO DAILY@08 Discharge Orders: Discharge Order (Routine); Ordered 08/08/24 Ordered By: Maryan Martinez Referrals: [facility] [Outside] Robe Wagner MD [Primary Care Provider] - 4-7 days Discharge Diet: GI Soft Patient Instructions: Ciprofloxacin (By mouth) (Cipro), Metronidazole (By mouth) (Flagyl, Flagyl 375, Flagyl ER, Likmez), Acute Wound Care (DC), Abscess (ED), Opioid Safety Discharge Attestations Time Spent in Discharge Care*: greater than 30 min Quality Metrics Clinical Quality Measures [ Venous Thromboembolism { Contraindication to Overlap Therapy: None; Overlap threrpy ordered; VTE Discharge Education: Education about anticoagulant therapy/Care Notes given; Deep Vein Thrombosis/Pulmonary Embolism Present on Admission: Yes;}] Coding Level of Care Code Acute Code for Chg Fwd Diagnoses Primary hypertension I10 Hypertension type: primary hypertension Cardiovascular disease I25.10 Pulmonary embolism I26.99 Status post cholecystectomy Z90.49 Status post endoscopic retrograde cholangiopancreatography Z98.890 Intra-abdominal fluid collection R18.8 CVA (cerebral vascular accident) I63.9 Alzheimer's dementia without behavioral disturbance G30.9; F02.80 History of seizures Z87.898 Abscess L02.91
[2024-08-08 13:14] VITALS: BP 138/63; PULSE 63; RESP 17; TEMP 36.4; O2SAT 98
== END 2024-08-08 13:15 | disposition skilled nursing facility (03) | DRG 862 ==
LOC: ER 09:50 → CSU 13:28 → MEDSURG 08-02 15:44
PROVIDERS: Internal Medicine; Radiology Diagnostic Radiology; Admitting Provider Internal Medicine; Emergency Provider Emergency Medicine; PCP Family Medicine; Visit Provider Student in an Organized Health Care Education/Training Program
PROC: 0W9G3ZZ Drainage of Peritoneal Cavity, Percutaneous Approach (ICD-10-PCS; principal; 2024-08-01 13:00)
DX: T81.43XA Infection following a procedure, organ and space surgical site, initial encounter (principal); I26.99 Other pulmonary embolism without acute cor pulmonale; K65.1 Peritoneal abscess; N39.0 Urinary tract infection, site not specified; Z16.39 Resistance to other specified antimicrobial drug; K91.870 Postprocedural hematoma of a digestive system organ or structure following a digestive system procedure; G30.9 Alzheimer's disease, unspecified; F02.80 Dementia in other diseases classified elsewhere, unspecified severity, without behavioral disturbance, psychotic disturbance, mood disturbance, and anxiety; G40.909 Epilepsy, unspecified, not intractable, without status epilepticus; I10 Essential (primary) hypertension; I25.2 Old myocardial infarction; I25.10 Atherosclerotic heart disease of native coronary artery without angina pectoris; Z66 Do not resuscitate; R09.02 Hypoxemia; B96.89 Other specified bacterial agents as the cause of diseases classified elsewhere; Z86.73 Personal history of transient ischemic attack (TIA), and cerebral infarction without residual deficits; Z90.49 Acquired absence of other specified parts of digestive tract
CPT/HCPCS: 36415; 49406; 71045; 71260; 71275; 74177; 76830; 76856; 78226; 80053; 81001; 83605; 83735; 83880; 84145; 84484; 85025; 85610; 85651; 85730; 86140; 87040; 87070; 87075; 87077; 87086; 87186; 87205; 87491; 87493; 87591; 93005; 93306; 96365; 96372; 96375; 99285; A9270; A9537; J0696; J0744; J1644; J1650; J2250; J2270; J2543; J2704; J7030; J7040

== ENCOUNTER 2024-09-24 14:18 | Outpatient (CLI) | payer MEDICARE, OTHER, SELFPAY ==
[2024-09-24 14:50] LABS: Add Urine Microscopic? YES; Bacteria Urine Trace /hpf; Bilirubin Urine Negative (Negative); Blood Urine 1+ (Negative); Glucose Urine UA Negative (Normal); Hyaline Casts Urine 1.21 /lpf; Ketones Urine Negative (Negative); Leukocyte Esterase Urine 1+ (Negative); Nitrate Urine Negative (Negative); Protein Urine Negative (Negative); RBC Urine 0-2 /hpf (0-2); Specific Gravity, Urine 1.007 (1.005-1.030); Squamous Epithelial Cell Urine 0-5 /hpf (0-5); Urine Appearance Clear (CLEAR); Urine Color Yellow (Yellow); Urobilinogen Urine 0.2 mg/dL (Negative); WBC Urine 21-50 /hpf (0-5)
== END 2024-09-24 14:19 | disposition home or self-care (01) ==
PROVIDERS: PCP Family Medicine; Referring Provider Nurse Practitioner Family; Visit Provider Nurse Practitioner Family
DX: N39.0 Urinary tract infection, site not specified (principal)
CPT/HCPCS: 81001; 87077; 87086; 87186

== ENCOUNTER 2024-11-07 14:28 | Inpatient (IN) | payer MEDICARE, OTHER, SELFPAY ==
[2024-11-07 14:29] VITALS: BP 152/77; PULSE 97; RESP 16; TEMP 36.8; O2SAT 82; BMI 29.2
--- NOTE | 2024-11-07 14:33 | XRR_ITS ---
PROCEDURE INFORMATION: Exam: XR Chest Exam date and time: 11/07/2024 2:45 PM Age: 79 years old Clinical indication: Shortness of breath; Additional info: SOB TECHNIQUE: Imaging protocol: Radiologic exam of the chest. Views: 1 view. COMPARISON: CT chest abdpel w/*[id number] 08/04/2024 6:10 AM FINDINGS: Lungs: No focal consolidation. Left basilar hazy opacities compatible with atelectasis or, infection or sequela of pulmonary infarct in the proper clinical setting. Pleural spaces: No evidence of pneumothorax. No evidence of pleural effusion. Heart/Mediastinum: Cardiomediastinal silhouette is within normal limits. Bones/joints: No evidence of acute osseous abnormality. XR/XR chest 1V portable [id number] IMPRESSION: 1. Left basilar hazy opacities compatible with atelectasis or, infection or sequela of pulmonary infarct in the proper clinical setting.
--- NOTE | 2024-11-07 14:33 | ECG_ITS ---
[facility] Test Date: 2024-11-07 Pat Name: Ester Beasley Department: Room: Gender: Female Photogrammetric Tech: : 1945 Requested By: Purvi Burk Order Number: [id number] Jonh MD: David Sheppard M.D. Measurements Intervals [place] Rate: 83 P: 54 CT: 159 QRS: -25 QRSD: 86 T: -69 QT: 341 QTc: 402 Interpretive Statements SINUS RHYTHM LEFT VENTRICULAR HYPERTROPHY AND ST-T CHANGE [VOLTAGE CRITERIA PLUS ST/T ABNORMALITY] INFERIOR MYOCARDIAL INFARCTION , OF INDETERMINATE AGE [40+ ms Q WAVE AND/OR ST/T ABNORMALITY IN II/aVF] Compared to ECG 07/31/2024 17:15:32 No significant changes Electronically Signed On 11-10-2024 12:41:07 INTERIOR DESIGN PROGRAM CHAIR by David Sheppard M.D. [email or web address]
--- NOTE | 2024-11-07 14:47 | ED_ITS ---
HPI - SOB/Dyspnea 2 General: Chief Complaint: Shortness of Breath/Dyspnea Stated Complaint: low o2 Time Seen by Provider: 11/07/24 14:28 Source: patient, family and EMS Mode of arrival: EMS Limitations: no limitations History of Present Illness: HPI Narrative: 79-year-old female who is here from [facility]. Patient is currently on hospice. Per [place] [facility] patient's had increased weakness today and wanted to send her up here for evaluation. Hospice at this time has removed her from hospice. Patient has severe dementia here she is able answer some of my questions she knows where she lives and her name she is not sure of the year. Associated symptoms: Deny abdominal pain, chest pain, fever(s), nausea or vomiting Related Data Home Medications Medication Instructions Recorded Confirmed lisinopril 20 mg tablet 20 mg PO DAILY@08 10/27/23 11/07/24 aspirin 81 mg tablet,delayed 81 mg PO DAILY 11/07/24 11/07/24 release escitalopram oxalate 10 mg tablet 10 mg PO DAILY 11/07/24 11/07/24 mirtazapine 15 mg tablet 15 mg PO QPM 11/07/24 11/07/24 omeprazole 40 mg capsule,delayed 40 mg PO DAILY 11/07/24 11/07/24 release Previous Rx's Medication Instructions Recorded hydrocodone 5 mg-acetaminophen 325 1 tab PO Q4H PRN pain #30 tabs 07/24/24 mg tablet Allergies Allergy/AdvReac Type Severity Reaction Status Date / Time egg Allergy Unknown Verified 07/24/24 12:04 lettuce Allergy Unknown Verified 07/24/24 12:04 Review of Systems 2 Const: Reports: fatigue and malaise; Denies: fever(s), chills, body aches or change in appetite ENMT: Denies: throat pain or dental pain Card: Denies: chest pain Resp: Reports: non-productive cough GI: Denies: abdominal pain, nausea, vomiting or diarrhea Musc: Denies: neck pain or back pain Skin/Breast: Denies: rash Neuro: Denies: headache(s) PFSH ED 2 PFSH: Medical History Dementia Family history of familial adenomatous polyposis Facial contusion Short-term memory loss mild NSTEMI (non-ST elevated myocardial infarction) Syncope History of epilepsy history of grand mal seizures, last ~2014, not on chronic medication Hypertension 2 para 2 Surgical History Status post endoscopic retrograde cholangiopancreatography Status post cholecystectomy History of colectomy subtotal colectomy with ileorectal anastomosis performed by Dr Chaney in 1992 due to family history of familial adenomatous polyposis Family History Father CAD (coronary artery disease) age 50 from heart attack Other Familial polyposis Social History Smoking and tobacco/nicotine status: never used tobacco/nicotine Alcohol intake: never Substance/Drug Use: never Household members: family Physical Exam 2 Const: COMMON NORMALS: no acute distress and healthy appearing HENMT: COMMON NORMALS: normocephalic and atraumatic HEAD & SCALP: n ormocephalic and atraumatic Neck/C-Spine: COMMON NORMALS: full ROM and supple Chest: COMMONS NORMALS: normal inspection of the chest Resp: COMMON NORMALS: normal respiratory effort, No retractions, No use of accessory muscles and clear to auscultation bilaterally AUSCULTATION: clear to auscultation bilaterally Cardio: COMMON NORMALS: regular rate, regular rhythm and No murmurs present (Cardio) RATE: regular rate RHYTHM: regular rhythm GI: COMMON NORMALS: Normal to inspection, nondistended, normoactive bowel sounds present, Soft to palpation, non-tender and no masses PALPATION: Yes Soft to palpation Extremity: COMMON NORMALS: normal to inspection and full ROM Neuro: COMMON NORMALS: moves all extremities and no focal motor deficits Psych: COMMON NORMALS: mental status grossly normal, Normal thought process present and cooperative THOUGHT PROCESS: Normal thought process present Skin: COMMON NORMALS: no rashes or lesions noted and no wounds GENERAL SKIN EXAM: no rashes or lesions noted Course 2 Vital Signs: Vital signs: Vital Signs Temperature 98.3 F 11/07/24 14:29 Pulse Rate 82 11/07/24 17:00 Respiratory Rate 16 11/07/24 14:29 Blood Pressure 120/85 11/07/24 17:00 Pulse Oximetry 93 11/07/24 17:00 Oxygen Delivery Me thod Room Air 11/07/24 14:29 MDM - SOB/Dyspnea Medical Decision Making Patient presents for cough and increasing shortness of breath is requiring increased oxygen here x-ray shows likely pneumonia we will start IV antibiotics spoke to hospitalist will admit at this time. Medical Records I reviewed the patient's medical records. Lab Data I reviewed the patient's lab results. 11/07/24 15:31 11/07/24 15:31 Labs/Radiology: Radiology Impressions Chest X-Ray 11/07/24 14:33 IMPRESSION: 1. Left basilar hazy opacities compatible with atelectasis or, infection or sequela of pulmonary infarct in the proper clinical setting. Laboratory Results WBC 10.34 10^3/uL (3.29-11.43) 11/07/24 15: RBC 3.96 10^6/uL (3.85-5.65) 11/07/24 15:31 Hgb 11.80 g/dL (11.27-16.99) 11/07/24 15: Hct 36.9 % (36-47) 11/07/24 15:31 MCV 93.2 fl (85-98) 11/07/24 15:31 MCH 29.8 pg (27-33) 11/07/24 15: MCHC 32.0 g/dL (30-55) 11/07/24 15:31 RDW 14.6 % (12.1-15.1) 11/07/24 15:31 Plt Count 308 10^3/cmm (157-399) 11/07/24 15:31 MPV 11.5 fL (7.4-10.4) H 11/07/24 15:31 Neut % (Auto) 75.4 % 11/07/24 15:31 Lymph % (Auto) 13.9 % 11/07/24 15:31 [place] % (Auto) 9.5 % 11/07/24 15: Eos % (Auto) 0.3 % 11/07/24 15: Baso % (Auto) 0.4 % 11/07/24 15:31 Neut # (Auto) 7.80 10^3/uL (1.8-7.7) H 11/07/24 15:31 Lymph # (Auto) 1.4 10^3/uL (0.8-4.8) 11/07/24 15:31 Howard # (Auto) 1.0 10^3/uL (0.2-0.9) H 11/07/24 15:31 Eos # (Auto) 0.0 10^3/uL (0.0-0.8) 11/07/24 15: Baso # (Auto) 0.0 10^3/uL (0.0-0.1) 11/07/24 15:31 Nucleated RBC % (auto) 0 % 11/07/24 15: Nucleated RBCs # 0.0 /100WBC 11/07/24 15:31 Specimen Type Arterial 11/07/24 14:50 Sample Site Radial, right 11/07/24 14:50 ABG pH 7.50 (7.35-7.45) H 11/07/24 14:50 ABG pCO2 30.1 mmHg (35-45) L 11/07/24 14:50 ABG pO2 60.1 mmHg (80.0-100.0) L 11/07/24 14:50 ABG PO2/FiO2 Ratio 158 11/07/24 14:50 ABG HCO3 23.4 mmol/L (22-26) 11/07/24 14:50 ABG Base Excess 0.8 mmol/L (-2.0-2.0) 11/07/24 14:50 Frandy Test Pos 11/07/24 14:50 Hematocrit 35.5 % (37-47) L 11/07/24 14:50 O2 Delivery Device Nc 11/07/24 14:50 O2 Liters/Min 4.5 % 11/07/24 14:50 FiO2 38.0 % 11/07/24 14:50 Wind Turbine Service Technician ID Monro 11/07/24 14:50 Sodium 137 mmol/L (136-145) 11/07/24 15:31 Potassium 3.9 mmol/L (3.5-5.1) 11/07/24 15:31 Chloride 99 mmol/L (98-107) 11/07/24 15:31 Carbon Dioxide 25 mmol/L (22-29) 11/07/24 15:31 Anion Gap 16.9 (5-19) 11/07/24 15:31 BUN 14 mg/dL (8-23) 11/07/24 15:31 Creatinine 0.9 mg/dL (0.5-0.9) 11/07/24 15:31 GFR Calculation Not Reportable 11/07/24 15:31 Glucose 119 mg/dL (65-115) H 11/07/24 15:31 Calculated Osmolality 286 mOsm/kg (285-295) 11/07/24 15:31 Calcium 8.8 mg/dL (8.5-10.5) 11/07/24 15:31 Total Bilirubin 0.3 mg/dL (0.15-1.2) 11/07/24 15:31 AST 24 U/L (0-32) 11/07/24 15:31 ALT 14 U/L (0-33) 11/07/24 15:31 Alkaline Phosphatase 129 U/L (35-105) H 11/07/24 15:31 C-Reactive Protein 73.7 mg/L (0.0-4.9) H 11/07/24 15:31 NT-Pro-B Natriuret Pep 9495 pg/mL (0-450) H 11/07/24 15:31 Total Protein 6.7 g/dL (6.6-8.7) 11/07/24 15:31 Albumin 3.6 g/dL (3.5-5.2) 11/07/24 15:31 Globulin 3.1 g/dL (1.3-4.6) 11/07/24 15:31 Procalcitonin 0.08 ng/mL (0-0.5) 11/07/24 15:31 All radiology interpretation(s) finalized by discharge EKG Data EKG 1: I personally reviewed and interpreted this EKG as follows: EKG Interpretation Date: 11/07/24 EKG interpretation time: 14:56 Interpretation: nsr hr [address] elevation qrs 86 qtc 381 Discharge Plan Discharge Patient Disposition: Admitted As Inpatient Clinical Impression: Community acquired pneumonia, Acute respiratory failure with hypoxia Condition: Stable Coding Level of Care Code ED Welder Plastic for Fortino Sauer
[2024-11-07 15:04] LABS: ABG PCO2 30.1 mmHg (35-45); Arterial Blood Gas Hematocrit 35.5 % (37-47); Base Excess ABG 0.8 mmol/L (-2.0-2.0); Blood Gas Allen Test Pos; Blood Gas LPM 4.5 %; Blood Gas Operator Identificat MONRO; Blood Gas Sample Site Radial, right; Blood Gas Sample Type Arterial; HCO3 ABG 23.4 mmol/L (22-26); Oxygen Device NC; PO2 ABG 60.1 mmHg (80.0-100.0); PO2 FiO2 Ratio Arterial Blood 158
[2024-11-07 15:43] LABS: Basophils % 0.4 %; Eosinophils % 0.3 %; Hematocrit 36.9 % (36-47); Lymphocytes # 1.4 10^3/uL (0.8-4.8); Lymphocytes % 13.9 %; Mean Corpuscular Hemoglobin 29.8 pg (27-33); Mean Corpuscular Volume 93.2 fl (85-98); Mean Platelet Volume 11.5 fL (7.4-10.4); Monocytes % 9.5 %; Neutrophils % 75.4 %; Nucleated Red Blood Cells % 0 %; Platelet Count 308 10^3/cmm (157-399); Red Blood Count 3.96 10^6/uL (3.85-5.65); Red Cell Distribution Width 14.6 % (12.1-15.1); White Blood Count 10.34 10^3/uL (3.29-11.43)
[2024-11-07] MEDS: cefTRIAXone 1,000 mg SDV 1000 MG IVP (15:50)
[2024-11-07] MEDS: AZITHROMYCIN ADD-Vantage 500 MG in 0.9% NaCl ADD-Vantage 250 ML 250 MG IV (15:51)
[2024-11-07 15:59] VITALS: BP 147/86; PULSE 83; O2SAT 95
[2024-11-07 16:10] LABS: Alanine Aminotransferase 14 U/L (0-33); Albumin Level 3.6 g/dL (3.5-5.2); Alkaline Phosphatase 129 U/L (35-105); Anion Gap 16.9 (5-19); Aspartate Amino Transferase 24 U/L (0-32); Blood Urea Nitrogen 14 mg/dL (8-23); Calcium 8.8 mg/dL (8.5-10.5); Carbon Dioxide 25 mmol/L (22-29); Chloride 99 mmol/L (98-107); Creatinine Clr Calc Pharmacy 48.0562; Globulin 3.1 g/dL (1.3-4.6); Glucose 119 mg/dL (65-115); NT Pro B Type Natriuretic Pept 9495 pg/mL (0-450); Osmolality Calculated 286 mOsm/kg (285-295); Potassium 3.9 mmol/L (3.5-5.1); Sodium 137 mmol/L (136-145); Total Bilirubin 0.3 mg/dL (0.15-1.2); Total Protein 6.7 g/dL (6.6-8.7)
[2024-11-07 17:00] VITALS: BP 120/85; PULSE 82; O2SAT 93
--- NOTE | 2024-11-07 17:58 | P.HP_ITS ---
Providers/Chief Complaint 2 Primary Care Provider: Robe Wagner MD Chief Complaint: low o2 History of Present Illness Ester Beasley is a 79 year old female With past medical history of dementia currently on memory care unit at [facility], recent acute cholecystitis, choledocholithiasis status post CBD stenting status post acute cholecystectomy, gallbladder fossa abscess which was later drained, history of NSTEMI who is currently on hospice at [facility] was brought to the hospital due to worsening shortness of breath and increased weakness. Her saturations were in the low 80s as per family and she was brought to the hospital for further evaluation. Patient is pleasantly confused and unable to provide much history. Family present at bedside and aids with history taking. They state that she has not had a fever nausea vomiting diarrhea abdominal pain however has been having shortness of breath. They have been told that she has pneumonia. They state that she is currently on hospice at the nursing facility. They have revoked hospice at this point I would like to her to be treated. She is to remain DNR/DNI however.. Patient denies any sputum production. Medications/Allergies Home Medications Medication Instructions Recorded Confirmed Last Taken Type lisinopril 20 mg tablet 20 mg PO DAILY@08 10/27/23 11/07/24 11/07/24 History hydrocodone 5 mg-acetaminophen 325 1 tab PO Q4H PRN pain #30 tabs 07/24/24 11/07/24 10/25/24 Rx mg tablet aspirin 81 mg tablet,delayed 81 mg PO DAILY 11/07/24 11/07/24 11/07/24 History release escitalopram oxalate 10 mg tablet 10 mg PO DAILY 11/07/24 11/07/24 11/07/24 History mirtazapine 15 mg tablet 15 mg PO QPM 11/07/24 11/07/24 11/06/24 History omeprazole 40 mg capsule,delayed 40 mg PO DAILY 11/07/24 11/07/24 11/07/24 History release Allergies Allergy/AdvReac Type Severity Reaction Status Date / Time egg Allergy Unknown Verified 07/24/24 12:04 lettuce Allergy Unknown Verified 07/24/24 12:04 PFSH Acute 2 PFSH: Medical History Dementia Family history of familial adenomatous polyposis Facial contusion Short-term memory loss mild NSTEMI (non-ST elevated myocardial infarction) Syncope History of epilepsy history of grand mal seizures, last ~2014, not on chronic medication Hypertension 2 para 2 Surgical History Status post endoscopic retrograde cholangiopancreatography Status post cholecystectomy History of colectomy subtotal colectomy with ileorectal anastomosis performed by Dr Chaney in 1992 due to family history of familial adenomatous polyposis Family History Father CAD (coronary artery disease) age 50 from heart attack Other Familial polyposis Social History Smoking and tobacco/nicotine status: never used tobacco/nicotine Alcohol intake: never Substance/Drug Use: never Household members: family Vitals/I&O/Wt Last Vital Signs Temp 98.3 F 11/07/24 14:29 Pulse 82 11/07/24 17:00 Resp 16 11/07/24 14:29 BP 120/85 11/07/24 17:00 Pulse Ox 93 11/07/24 17:00 O2 Del Method Room Air 11/07/24 14:29 Weight last 48 hrs Weight 72.575 kg Physical Exam 2 Narrative: General: No acute distress, AO x1 HEENT: PERRLA, pupils bilaterally equal and reactive, pallors not present, on 5L NC Chest: Normal vesicular breath sounds, no added sounds, equal good air entry bilaterally CVS: S1-S2 regular, no murmurs, no tachycardia, no gallops, no rubs Abdomen: Soft, nontender, bowel sounds present Neuro: able to move all 4 extremeties, pleasantly confused Extremities: 2+ dependent edema b/l LE upto thighs Data 11/07/24 15:31 11/07/24 15:31 A&P Assessment and plan (1) Hypertension: Qualifiers: Hypertension type: primary hypertension Qualified Code(s): I10 - Essential (primary) hypertension (2) Alzheimer's dementia without behavioral disturbance: (3) Community acquired pneumonia: (4) Supplemental oxygen dependent: Plan #Left sided pneumonia #Hypoxia, new requirement requiring 5 L nasal cannula #Patient on hospice at nursing facility #History of NSTEMI, dementia currently on memory care unit at [facility], recent acute cholecystitis, choledocholithiasis status post CBD stenting status post acute cholecystectomy, gallbladder fossa abscess which was later drained -Check urine Gram stain and culture, blood cultures, urine culture ? C patient received ceftriaxone azithromycin in ER. Will start IV Levaquin ? Continue supplemental oxygen and wean off as able ? Will order Lasix 40 IV x 1 at this time. ? BNP 9500. ? Does appear to be euvolemic. Will do a trial of Lasix. ? Will place on Solu-Medrol 40 IV twice daily ? DuoNebs every 6 hours as needed ? I will hold off on IV fluids at this time. Patient does not appear dehydrated ? Continue lisinopril, omeprazole, aspirin, citalopram which are patient's home medications ? Family updated at bedside ? Patient may require greater than 2 midnight stay for management of left-sided pneumonia and new oxygen requirement. Will place Blake catheter for accurate output. - pt does have a hx of PE, will check cta chest to r/o. She is to be an Eliquis in the past however that was stopped at previous admission. Attestations 2 Medical Necessity Statement*: > 2 midnight stay for pna tx, rule out HF, PE Diagnoses Primary hypertension I10 Hypertension type: primary hypertension Alzheimer's dementia without behavioral disturbance G30.9; F02.80 Community acquired pneumonia J18.9 Supplemental oxygen dependent Z99.81
[2024-11-07 18:00] LABS: Procalcitonin 0.08 ng/mL (0-0.5)
[2024-11-07 18:01] LABS: C Reactive Protein 73.7 mg/L (0.0-4.9)
[2024-11-07] MEDS: FUROsemide 10 mg/mL SDV 4mL 40 MG IVP (18:12)
[2024-11-07] MEDS: heparin 5,000 unit/mL INJ 1 mL 5000 UNIT SUBCUT (18:13)
[2024-11-07] MEDS: methylPREDNISolone sod succ 40 mg/mL INJ IVP (18:13)
[2024-11-07 18:55] VITALS: PULSE 88; RESP 20; O2SAT 93
--- NOTE | 2024-11-07 19:05 | PC.NURSE ---
PT ABX LATE DUE TO DELAY IN DRAWN BLOOD CULTURES.
--- NOTE | 2024-11-07 20:14 | PC.NURSE ---
PT REFUSED REMERON, STATES IT WILL MAKE HER SICK.
[2024-11-07] MEDS: levofloxacin-dextrose 5 % 750 MG/150 ML PREMIX 100 MG IV (20:15)
[2024-11-07 21:20] VITALS: BMI 25.9
--- NOTE | 2024-11-07 21:22 | USCV_ITS ---
Ester Beasley Age: 79 Gender: F : 1945 Exam Date: 11/07/2024 23:38 Ordering Phys: Amber Orosco MD Technologist: SHONA Exam Location[place] [facility] [place] Indication: elevated BNP Patient is unresponsive in 255-1. BP: 120 / 85 HR: 73 Rhythm: Sinus Technical Quality: Adequate MEASUREMENTS (Male / Female) Normal Values 2D ECHO LV Diastolic Diameter PLAX 3.3 cm 4.2 - 5.9 / 3.9 - 5.3 cm IVS Diastolic Thickness 1.2 cm 0.6 - 1.0 / 0.6 - 0.9 cm IVS Systolic Thickness 1.5 cm LVPW Diastolic Thickness 1.2 cm 0.6 - 1.0 / 0.6 - 0.9 cm LVPW Systolic Thickness 1.6 cm LVOT Diameter 1.5 cm LV Ejection Fraction 2D Teich 71.2 % LV Ejection Fraction MOD 4C 65.6 % LV Ejection Fraction MOD 2C 75.4 % LV Ejection Fraction 2C AL 76.1 % LA Diameter 2.8 cm Aorta at Sinotubular Diameter 2.6 cm IVC Diameter 1.8 cm M-MODE LA Ao Ratio MM 1.4 AV Cusp Separation MM 1.7 cm DOPPLER AV Peak Velocity 101.0 cm/s LVOT Peak Velocity 66.0 cm/s AV Area Cont Eq vti 1.3 cm squared AV Area Cont Eq pk 1.2 cm squared MV Peak Velocity 124.0 cm/s MV Area PHT 3.8 cm squared Mitral E to A Ratio 0.5 TV Peak Velocity 296.0 cm/s TR Peak Velocity 312.0 cm/s TR Peak Gradient 38.9 mmHg TV Peak E Velocity 41.0 cm/s PV Peak Velocity 99.0 cm/s FINDINGS Left Ventricle Normal left ventricular size, systolic function and wall thickness, with no regional wall motion abnormalities. Left ventricular ejection fraction is estimated at 60 %. Grade I/IV diastolic dysfunction (abnormal relaxation filling pattern), normal to mildly elevated filling pressures. Right Ventricle The right ventricle is normal in size and function. Right Atrium The right atrium is normal in size. Left Atrium The left atrium is normal in size. Mitral Valve Mildly thickened mitral valve. No mitral valve stenosis. Moderate mitral valve regurgitation. Aortic Valve Structurally normal aortic valve without significant sclerosis or stenosis. There is no aortic regurgitation. Tricuspid Valve [id number] tricuspid valve regurgitation. Pulmonic Valve Mild pulmonary valve regurgitation. Pericardium Normal pericardium without effusion. Aorta Normal ascending aorta dimension. IVC The inferior vena cava appears normal. CONCLUSIONS Normal left ventricular size, systolic function and wall thickness, with no regional wall motion abnormalities. Left ventricular ejection fraction is estimated at 60 %. Grade I/IV diastolic dysfunction (abnormal relaxation filling pattern), normal to mildly elevated filling pressures. Mildly thickened mitral valve. No mitral valve stenosis. Moderate mitral valve regurgitation. Esyb-vb-[id number] tricuspid valve regurgitation. Mild pulmonary valve regurgitation. There is no pericardial effusion. Right atrial pressure is around 5 mm of mercury. Saskia Beasley MD (Electronically Signed) Final Date: 08 November 2024 00:20 S
--- NOTE | 2024-11-07 21:22 | CTR_ITS ---
PROCEDURE INFORMATION: Exam: CTA Chest With Contrast Exam date and time: 11/07/2024 10:51 PM Age: 79 years old Clinical indication: Pain and condition or disease; Cardiovascular condition or disease; Coronary artery disease (cad) or atherosclerosis; Without angina pectoris; Chest pressure; Additional info: R/O pe, hypoxia, HX of pe, in past was on eliquis TECHNIQUE: Imaging protocol: Computed tomographic angiography of the chest with contrast. Exam focused on the arteries. 3D rendering (Not supervised by radiologist): MIP and/or 3D reconstructed images were created by the technologist. Radiation optimization: All CT scans at this facility use at least one of these dose optimization techniques: automated exposure control; mA and/or kV adjustment per patient size (includes targeted exams where dose is matched to clinical indication); or iterative reconstruction. Contrast material: ONMI; Contrast volume: 100 ml; Contrast route: INTRAVENOUS (IV); COMPARISON: CT angio chest w abd pel w con 07/31/2024 10:49 AM RADIATION DOSE METRICS: Total DLP (mGy-cm): 346.5 FINDINGS: Pulmonary arteries: Acute on subacute bilateral pulmonary thromboembolism with involvement of the distal main, interlobar and proximal segmental branches bilaterally. Clot within the right main, interlobar and proximal segmental branches of the right is favored to be predominantly acute. Suspected component of subacute thrombus in the distal left main and interlobar pulmonary arteries with additional acute PE in the segmental branches. Aorta: No evidence of aneurysmal dilatation or dissection of the thoracic aorta. Thyroid: Grossly unremarkable. Lungs: No focal consolidation. Bibasilar atelectasis including left basilar rounded atelectasis. No convincing evidence of pulmonary infarct. Pleural spaces: No evidence of pleural effusion. No pneumothorax. Heart: No cardiomegaly. No pericardial effusion. Cardiac RV:LV ratio measures approximately 1.4. Mediastinal space: No evidence of mediastinal mass, fluid collection or hematoma. Lymph nodes: No mediastinal or hilar adenopathy. Bones/joints: No evidence of acute fracture or aggressive osseous lesion. Soft tissues: No evidence of fluid collection or hematoma in the superficial soft tissues. Other findings: No evidence of acute abnormality in the upper abdomen. CT/CT angio chest PE protcl [id number] IMPRESSION: 1. Acute on subacute bilateral pulmonary thromboembolism involving the distal main, interlobar and proximal segmental branches with evidence of right heart strain. No evidence of acute pulmonary infarct.
[2024-11-07 22:15] VITALS: BP 157/91; PULSE 88; RESP 17; TEMP 36.8; O2SAT 91
[2024-11-07] MEDS: iohexol 350 mg/mL 500 mL Btl (per mL) IV (23:00)
[2024-11-07 23:40] VITALS: BP 149/79; PULSE 80; RESP 15; TEMP 36.9; O2SAT 93
--- NOTE | 2024-11-08 00:01 | W.PM.EVENTAC ---
Event Note Event Note: V rad called for right heart strain and PE, patient started on therapeutic Lovenox echo is pending, hemodynamic stable
[2024-11-08 03:33] VITALS: BP 139/82; PULSE 82; RESP 15; TEMP 36.7; O2SAT 92
[2024-11-08 05:16] LABS: Basophils % 0.1 %; Hematocrit 33.8 % (36-47); Lymphocytes # 0.6 10^3/uL (0.8-4.8); Lymphocytes % 9.1 %; Mean Corpuscular HGB Conc 31.7 g/dL (30-55); Mean Corpuscular Hemoglobin 30.1 pg (27-33); Mean Corpuscular Volume 94.9 fl (85-98); Mean Platelet Volume 12.1 fL (7.4-10.4); Monocytes # 0.4 10^3/uL (0.2-0.9); Monocytes % 5.8 %; Neutrophils # 5.77 10^3/uL (1.8-7.7); Neutrophils % 84.3 %; Nucleated Red Blood Cells % 0 %; Platelet Count 268 10^3/cmm (157-399); Red Blood Count 3.56 10^6/uL (3.85-5.65); Red Cell Distribution Width 14.5 % (12.1-15.1); White Blood Count 6.85 10^3/uL (3.29-11.43)
[2024-11-08 05:31] LABS: Blood Urea Nitrogen 16 mg/dL (8-23); Calcium 8.5 mg/dL (8.5-10.5); Carbon Dioxide 25 mmol/L (22-29); Chloride 99 mmol/L (98-107); Creatinine Clr Calc Pharmacy 50.9755; Glucose 126 mg/dL (65-115); Osmolality Calculated 287 mOsm/kg (285-295); Sodium 137 mmol/L (136-145)
[2024-11-08] MEDS: enoxaparin 100 mg/mL Syringe 60 MG SUBCUT ×2 (05:34→17:52)
[2024-11-08 07:58] VITALS: BP 124/84; PULSE 80; RESP 16; TEMP 36.4; O2SAT 92
[2024-11-08 10:38] VITALS: O2SAT 86; O2SAT 92
[2024-11-08 12:00] VITALS: BP 115/62; PULSE 70; RESP 16; TEMP 36.6; O2SAT 98
--- NOTE | 2024-11-08 13:49 | P.PN_ITS ---
Subjective 2 Subjective: Overnight patient CTA chest resulted which does reveal bilateral PE with right heart strain. PE is acute on chronic. She was supposed to get Eliquis at discharge from previous hospitalization. However is not [facility] any [facility]agulation at the [facility] at this time. 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 [facility] is [facility] to [facility] on hosp[facility] status. Therapeutic Lovenox started overnight. Patient's oxygen requirements have reduced down to 2 L. Vitals/I&O/Wt Last Vital Signs Temp 97.8 F 11/08/24 12:00 Pulse 70 11/08/24 12:00 Resp 16 11/08/24 12:00 BP 115/62 11/08/24 12:00 Pulse Ox 98 11/08/24 12:00 O2 Del Method Nasal Cannula 11/08/24 12:00 O2 Flow Rate 5 11/08/24 10:38 11/07/24 11/08/24 11/08/24 22:59 06:59 14:59 Intake Total 400 / 400 0 / 400 240 / 240 Output Total 650 / 650 Balance 400 / 400 -650 / -250 240 / 240 Weight last 48 hrs Weight 64.138 kg Weight 64.319 kg Weight 72.575 kg Physical Exam 2 Narrative: General: No acute distress, AO x1 HEENT: PERRLA, pupils bilaterally equal and reactive, pallors not present, on 2L NC Chest: Normal vesicular breath sounds, no added sounds, equal good air entry bilaterally CVS: S1-S2 regular, no murmurs, no tachycardia, no gallops, no rubs Abdomen: Soft, nontender, bowel sounds present Neuro: able to move all 4 extremeties, pleasantly confused Extremities: 2+ dependent edema b/l LE upto thighs Urinary Catheter Management: Blake: Cath Placed During This Visit: yes Reason for Continuing Indwelling Catheter: Acute Urinary Retention or Obstruction Urinary Catheter Date of Insertion: 11/07/24 Urinary Catheter Time of Insertion: 23:30 Data 11/08/24 04:32 11/08/24 04:32 Micro: Microbiology 11/07/24 23:30 Bacterial Antigens - Final Urine,Voided 11/07/24 23:30 Legionella Urinary Antigen - Final Urine Catheterized 11/07/24 20:06 Blood Culture - Preliminary Blood SPECIMEN COLLECTED 11/07/24 20:03 Blood Culture - Preliminary Blood SPECIMEN COLLECTED A&P Assessment and plan (1) Hypertension: Qualifiers: Hypertension type: primary hypertension Qualified Code(s): I10 - Essential (primary) hypertension (2) Alzheimer's dementia without behavioral disturbance: (3) Supplemental oxygen dependent: Plan #Acute on chronic pulmonary embolism #Hypoxia, new requirement requiring 5 L nasal cannula #Patient on hospice at nursing facility #History of NSTEMI, dementia currently on memory care unit at [place], recent acute cholecystitis, choledocholithiasis status post CBD stenting status post acute cholecystectomy, gallbladder fossa abscess which was later drained -Check urine Gram stain and culture, blood cultures, urine culture ? C patient received ceftriaxone azithromycin in ER. Will start IV Levaquin ? Continue supplemental oxygen and wean off as able ? Will order Lasix 40 IV x 1 at this time. ? BNP 9500. ? Does appear to be euvolemic. Will do a trial of Lasix. ? Will place on Solu-Medrol 40 IV twice daily ? DuoNebs every 6 hours as needed ? I will hold off on IV fluids at this time. Patient does not appear dehydrated ? Continue lisinopril, omeprazole, aspirin, citalopram which are patient's home medications ? Family updated at bedside ? Patient may require greater than 2 midnight stay for management of left-sided pneumonia and new oxygen requirement. Will place Blake catheter for accurate output. - pt does have a hx of PE, will check cta chest to r/o. She is to be an Eliquis in the past however that was stopped at previous admission. 11/08/2023 - I will stop antibiotic at this time. Patient does not have pneumonia. That has been ruled out. CT chest with contrast was obtained. Patient does have acute on chronic bilateral pulmonary embolism with right heart strain. She was started on therapeutic Lovenox. Will transition to Eliquis at discharge. ? She is on Lasix 40 IV daily at this time. She appears to be euvolemic and oxygen requirements have come down. She did have 650 cc of urine output overnight. We will do 1 more dose of IV Lasix. Echocardiogram does not show right heart strain. I will stop Solu-Medrol. ? Continue DuoNeb every 6 hours as needed. -Plan to discharge back to nursing facility on hospice in AM. ? Requires continued hospitalization tonight for IV Lovenox. DNR/DNI as per family. Attestations 2 Medical Necessity Statement*: PE Coding Level of Care Code Acute Code for Chg Fwd Diagnoses Primary hypertension I10 Hypertension type: primary hypertension Alzheimer's dementia without behavioral disturbance G30.9; F02.80 Supplemental oxygen dependent Z99.81
[2024-11-08 16:05] VITALS: BP 154/81; PULSE 81; RESP 18; TEMP 36.5; O2SAT 94
[2024-11-08] MEDS: FUROsemide 10 mg/mL SDV 4mL 40 MG IVP (17:54)
[2024-11-08] MEDS: mirtazapine 15 mg Tablet PO (17:54)
[2024-11-08] MEDS: lisinopril 20 mg Tablet PO (19:59)
[2024-11-08] MEDS: pantoprazole DR 40 mg Tablet PO (19:59)
[2024-11-08] MEDS: aspirin 81 mg EC Tablet PO (19:59)
[2024-11-08] MEDS: escitalopram 10 mg Tablet PO (19:59)
[2024-11-08 20:00] VITALS: BP 129/75; PULSE 94; RESP 18; TEMP 36.6; O2SAT 98
[2024-11-09] VITALS: BP 121/71; PULSE 78; RESP 18; TEMP 36.9; O2SAT 98
[2024-11-09 04:00] VITALS: BP 119/62; PULSE 67; RESP 15; TEMP 36.7; O2SAT 98
[2024-11-09] MEDS: enoxaparin 100 mg/mL Syringe 60 MG SUBCUT (05:20)
[2024-11-09 05:44] LABS: Basophils % 0.4 %; Eosinophils # 0.1 10^3/uL (0.0-0.8); Eosinophils % 1.1 %; Hematocrit 33.9 % (36-47); Lymphocytes % 25.6 %; Mean Corpuscular HGB Conc 30.7 g/dL (30-55); Mean Corpuscular Hemoglobin 29.5 pg (27-33); Mean Platelet Volume 11.7 fL (7.4-10.4); Monocytes # 0.9 10^3/uL (0.2-0.9); Neutrophils # 4.82 10^3/uL (1.8-7.7); Neutrophils % 61.4 %; Nucleated Red Blood Cells % 0 %; Platelet Count 281 10^3/cmm (157-399); Red Blood Count 3.53 10^6/uL (3.85-5.65); Red Cell Distribution Width 14.6 % (12.1-15.1); White Blood Count 7.85 10^3/uL (3.29-11.43)
[2024-11-09 06:16] LABS: Anion Gap 14.8 (5-19); Blood Urea Nitrogen 26 mg/dL (8-23); Carbon Dioxide 27 mmol/L (22-29); Chloride 103 mmol/L (98-107); Creatinine Clr Calc Pharmacy 36.9403; Glucose 115 mg/dL (65-115); Osmolality Calculated 298 mOsm/kg (285-295); Potassium 3.8 mmol/L (3.5-5.1); Sodium 141 mmol/L (136-145)
[2024-11-09 07:55] VITALS: BP 125/81; PULSE 60; RESP 16; TEMP 36.7; O2SAT 98
--- NOTE | 2024-11-09 08:51 | P.DS_ITS ---
Discharge Providers Date of Admission: 11/07/24 17:20 Date of Discharge: November 09, 2024 Attending Provider at Admission: Amber Orosco MD Attending Provider at Discharge: Amber Orosco MD Primary Care Provider: Robe Wagner MD Diagnoses at Discharge Discharge Diagnosis (1) Hypertension: Status: Acute Qualifiers: Hypertension type: primary hypertension Qualified Code(s): I10 - Essential (primary) hypertension (2) Alzheimer's dementia without behavioral disturbance: Status: Acute (3) Supplemental oxygen dependent: Status: Acute Reason for Visit Reason for Visit: low o2 Brief History: Ester Beasley is a 79 year old female With past medical history of dementia currently on memory care unit at [facility], recent acute cholecystitis, choledocholithiasis status post CBD stenting status post acute cholecystectomy, gallbladder fossa abscess which was later drained, history of NSTEMI who is currently on hospice at [facility] was brought to the hospital due to worsening shortness of breath and increased weakness. Her saturations were in the low 80s as per family and she was brought to the hospital for further evaluation. Patient is pleasantly confused and unable to provide much history. Family present at bedside and aids with history taking. They state that she has not had a fever nausea vomiting diarrhea abdominal pain however has been having shortness of breath. They have been told that she has pneumonia. They state that she is currently on hospice at the nursing facility. They have revoked hospice at this point I would like to her to be treated. She is to remain DNR/DNI however.. Patient denies any sputum production. Hospital Course Hospital Course Patient presented to the hospital with new onset hypoxia requiring 5 L nasal cannula oxygen initially on admission. She is on hospice at the nursing facility. She is in a memory care unit over there for severe dementia. Apparently was not on her Eliquis anymore for unclear reasons. Family was unsure either. CTA chest was done which showed acute on chronic PE. She was placed on therapeutic Lovenox. She was also given Lasix however she is not not grossly fluid overloaded. Initially her clinical picture was not very clear due to cause of hypoxia. BNP was 9400 but clinically appeared to be euvolemic. Lasix was subsequently stopped. She will not need Lasix going forward. Echo did show diastolic heart failure however she is clinically euvolemic. She was started on Eliquis 10 twice daily for 5 more days going forward and then transition to 5 twice daily thereafter. Continue to follow with primary care doctor going forward. Patient will be discharged [facility] to [facility]. Daughter present at bedside. Discussed her mother cares with her in detail. Physical Exam Narrative: General: No acute distress, AO x1 HEENT: PERRLA, pupils bilaterally equal and reactive, pallors not present, on 2L NC Chest: Normal vesicular breath sounds, no added sounds, equal good air entry bilaterally CVS: S1-S2 regular, no murmurs, no tachycardia, no gallops, no rubs Abdomen: Soft, nontender, bowel sounds present Neuro: able to move all 4 extremeties, pleasantly confused Extremities: 1+ dependent edema b/l LE, chronic as per family. she is wheelchair bound Urinary Catheter Management: Blake: Cath Placed During This Visit: yes Reason for Continuing Indwelling Catheter: Hospice/Comfort/Palliative Care Urinary Catheter Date of Insertion: 11/07/24 Urinary Catheter Time of Insertion: 23:30 Discharge Data Studies Completed and Pending Completed Studies During Hospitalization Category Date Time Status CTA chest [CT angio chest PE protcl [id number]] Urgent Cat Scan 11/07/24 21:22 Completed XR chest 1V portable [id number] Stat Exams 11/07/24 14:33 Completed CV. echo complete* [id number] Routine Ultrasound 11/07/24 21:22 Completed Pending at discharge Category Date Time Status Blood Culture Stat Lab 11/07/24 20:06 Results Legionella Antigen STAT Stat Lab 11/07/24 23:30 Results Sputum Culture and Gram Stain Stat Lab 11/07/24 17:09 Uncollected Urine Culture Stat Lab 11/07/24 23:30 Results Radiology Impressions Chest X-Ray 11/07/24 14:33 IMPRESSION: 1. Left basilar hazy opacities compatible with atelectasis or, infection or sequela of pulmonary infarct in the proper clinical setting. Chest CTA 11/07/24 21:22 IMPRESSION: 1. Acute on subacute bilateral pulmonary thromboembolism involving the distal main, interlobar and proximal segmental branches with evidence of right heart strain. No evidence of acute pulmonary infarct. ADDENDUM: 11/07/24 [id number] The findings were verbally communicated by telephone with Dr. Grimaldo at 11:32 PM HOSPITALITY RECRUITER on 11/07/2024. Laboratory Results WBC 7.85 10^3/uL (3.29-11.43) 11/09/24 05:01 RBC 3.53 10^6/uL (3.85-5.65) L 11/09/24 05:01 Hgb 10.40 g/dL (11.27-16.99) L 11/09/24 05:01 Hct 33.9 % (36-47) L 11/09/24 05:01 MCV 96.0 fl (85-98) 11/09/24 05:01 MCH 29.5 pg (27-33) 11/09/24 05:01 MCHC 30.7 g/dL (30-55) 11/09/24 05:01 RDW 14.6 % (12.1-15.1) 11/09/24 05:01 Plt Count 281 10^3/cmm (157-399) 11/09/24 05:01 MPV 11.7 fL (7.4-10.4) H 11/09/24 05:01 Neut % (Auto) 61.4 % 11/09/24 05:01 Lymph % (Auto) 25.6 % 11/09/24 05:01 [place] % (Auto) 11.0 % 11/09/24 05:01 Eos % (Auto) 1.1 % 11/09/24 05:01 Baso % (Auto) 0.4 % 11/09/24 05:01 Neut # (Auto) 4.82 10^3/uL (1.8-7.7) 11/09/24 05:01 Lymph # (Auto) 2.0 10^3/uL (0.8-4.8) 11/09/24 05:01 [place] # (Auto) 0.9 10^3/uL (0.2-0.9) 11/09/24 05:01 Eos # (Auto) 0.1 10^3/uL (0.0-0.8) 11/09/24 05:01 Baso # (Auto) 0.0 10^3/uL (0.0-0.1) 11/09/24 05:01 Nucleated RBC % (auto) 0 % 11/09/24 05:01 Nucleated RBCs # 0.0 /100WBC 11/09/24 05:01 Specimen Type Arterial 11/07/24 14:50 Sample Site Radial, right 11/07/24 14:50 ABG pH 7.50 (7.35-7.45) H 11/07/24 14:50 ABG pCO2 30.1 mmHg (35-45) L 11/07/24 14:50 ABG pO2 60.1 mmHg (80.0-100.0) L 11/07/24 14:50 ABG PO2/FiO2 Ratio 158 11/07/24 14:50 ABG HCO3 23.4 mmol/L (22-26) 11/07/24 14:50 ABG Base Excess 0.8 mmol/L (-2.0-2.0) 11/07/24 14:50 Frandy Test Pos 11/07/24 14:50 Hematocrit 35.5 % (37-47) L 11/07/24 14:50 O2 Delivery Device Nc 11/07/24 14:50 O2 Liters/Min 4.5 % 11/07/24 14:50 FiO2 38.0 % 11/07/24 14:50 Tool And Die Designer ID Monro 11/07/24 14:50 Sodium 141 mmol/L (136-145) 11/09/24 05:01 Potassium 3.8 mmol/L (3.5-5.1) 11/09/24 05:01 Chloride 103 mmol/L (98-107) 11/09/24 05:01 Carbon Dioxide 27 mmol/L (22-29) 11/09/24 05:01 Anion Gap 14.8 (5-19) 11/09/24 05:01 BUN 26 mg/dL (8-23) H 11/09/24 05:01 Creatinine 1.1 mg/dL (0.5-0.9) H 11/09/24 05:01 GFR Calculation Not Reportable 11/09/24 05:01 Glucose 115 mg/dL (65-115) 11/09/24 05:01 Calculated Osmolality 298 mOsm/kg (285-295) H 11/09/24 05:01 Calcium 9.0 mg/dL (8.5-10.5) 11/09/24 05:01 Magnesium 2.0 mg/dL (1.7-2.3) 11/09/24 05:01 Total Bilirubin 0.3 mg/dL (0.15-1.2) 11/07/24 15:31 AST 24 U/L (0-32) 11/07/24 15:31 ALT 14 U/L (0-33) 11/07/24 15:31 Alkaline Phosphatase 129 U/L (35-105) H 11/07/24 15:31 C-Reactive Protein 73.7 mg/L (0.0-4.9) H 11/07/24 15:31 NT-Pro-B Natriuret Pep 9495 pg/mL (0-450) H 11/07/24 15:31 Total Protein 6.7 g/dL (6.6-8.7) 11/07/24 15:31 Albumin 3.6 g/dL (3.5-5.2) 11/07/24 15:31 Globulin 3.1 g/dL (1.3-4.6) 11/07/24 15:31 Procalcitonin 0.08 ng/mL (0-0.5) 11/07/24 15:31 Vitals Last Vital Signs Temp 98.1 F 11/09/24 07:55 Pulse 60 11/09/24 07:55 Resp 16 11/09/24 07:55 BP 125/81 11/09/24 07:55 Pulse Ox 98 11/09/24 07:55 O2 Del Method Nasal Cannula 11/09/24 07:55 O2 Flow Rate 4 11/09/24 04:00 Discharge Plan Discharge Patient Disposition: Hospice - Medical Facility Condition: Stable Prescriptions: New Eliquis 5 mg tablet See Rx Instructions .ROUTE .COMPLEX Qty: 60 0RF Rx Instructions: 10 mg BID x 5 days then reduce dose to 5 mg BID thereafter Continued lisinopril 20 mg tablet 20 mg PO DAILY@08 hydrocodone-acetaminophen 5-325 mg tablet 1 tab PO Q4H PRN (Reason: pain) Qty: 30 0RF omeprazole 40 mg capsule,delayed release(DR/EC) 40 mg PO DAILY mirtazapine 15 mg tablet 15 mg PO QPM escitalopram oxalate 10 mg tablet 10 mg PO DAILY Discontinued aspirin [Aspir-81] 81 mg Tablet,Delayed Release (Dr/Ec) 81 mg PO DAILY Discharge Orders: Discharge Order (Routine); Ordered 11/09/24 Ordered By: Amber Orosco Referrals: [facility] [Outside] [facility] [Outside] Robe Wagner MD [Primary Care Provider] - 11/14/24 10:45 am Discharge Diet: Cardiac Discharge Activity: Resume usual activity Patient Instructions: Apixaban (By mouth), Pulmonary Embolism (GEN), Hospice Care (GEN) Discharge Attestations Time Spent in Discharge Care*: greater than 30 min Quality Metrics Clinical Quality Measures [ No reported AMI, CVA or VTE this stay] Coding Level of Care Code Acute Code for Chg Fwd Diagnoses Primary hypertension I10 Hypertension type: primary hypertension Alzheimer's dementia without behavioral disturbance G30.9; F02.80 Supplemental oxygen dependent Z99.81
[2024-11-09 09:02] VITALS: PULSE 61; RESP 16; O2SAT 98
--- NOTE | 2024-11-09 09:19 | PC.CHAP ---
Pastoral Care Encounter/Spiritual Assessment Type of Contact [] Declined commercial real estate broker visit [] Patient/Family/Request visit [] Outpatient visit [] Follow-up visit [] Physician referral [] Code/Alert [] Routine visit [] Staff referral [] Actively dying [] Patient sleeping [] Family support [] [] Out of room [] Palliative care [] [x] Receiving care in room [] Pre-surgical visit [] Trauma [] Long length of stay [] ICU visit [] Other: Relational/Emotional Strength [] Patient feels connected with others/family/visitors/staff [] Distress [] Loneliness/isolation [] Abandonment Spirituality of Patient [] Person of Deonna [] Attends Congregation of their Deonna [] Believes in Prayer [] Reads Bible or Mandaen materials [] There are Spiritual issues to be addressed Crossbow Maker 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 [] Prayer [] Active listening [] Non-anxious presence [] Spiritual/emotional support [] Crisis/trauma care [] Spiritual counseling [] Bereavement support [] Provided bereavement packet [] Provided Bible/devotional materials [] Provided toy/stuffed animal, coloring book to patient or family member [] Provided Communion [] Anointing/[place] [] Salvation [] Completed spiritual assessment [] Other: Impact on Illness or Injury [] Angry [] Fearful [] Anxious [] Often cries [] Exhaustion [] Unable to work [] Unable to attend alevism [] Unable to walk/stand [] Unable to read [] Unable to drive [] Unable to eat/drink [] Unable to sleep [] Unable to be with family [] Patient intubated [] Other: Summary Time spent with patient
--- NOTE | 2024-11-09 11:37 | PC.NURSE ---
equipment operation instructor observed Seferino, student nurse, remove pt's urinary ge catheter. Pt tolerated well.
[2024-11-09 11:56] VITALS: BP 162/81; PULSE 76; RESP 17; TEMP 36.8; O2SAT 99
--- NOTE | 2024-11-09 13:10 | PC.NURSE ---
Discharge Note Patient discharged to [facility] via [facility] accompanied by [facility] staff. Discharge instructions reviewed with patient and/or sales and merchandising representative. Mobile pharmacy medications and/or prescriptions provided. Belongings/home medications returned. Meds to beds [facility] sent with daughter to give to [facility]. Patient cleaned and sent in hospital gown d/t home clothes being soiled.
[2024-11-09 13:14] VITALS: BP 162/81; PULSE 76; RESP 17; TEMP 36.8; O2SAT 99
--- NOTE | 2024-11-09 13:58 | PC.SOCIAL ---
IMM Update pg 2 of IMM Updated and reviewed w/ patients daughter Crystal. Copy provided and copy dated, initialed and placed in chart.
== END 2024-11-09 13:15 | disposition hospice, home (50) | DRG 176 ==
LOC: ER 18:34 → MEDSURG 20:01
PROVIDERS: Admitting Provider Internal Medicine; Emergency Provider Emergency Medicine; PCP Family Medicine; Visit Provider Internal Medicine
DX: I26.99 Other pulmonary embolism without acute cor pulmonale (principal); I50.30 Unspecified diastolic (congestive) heart failure; I11.0 Hypertensive heart disease with heart failure; G30.9 Alzheimer's disease, unspecified; F02.C0 Dementia in other diseases classified elsewhere, severe, without behavioral disturbance, psychotic disturbance, mood disturbance, and anxiety; Z99.81 Dependence on supplemental oxygen; Z90.49 Acquired absence of other specified parts of digestive tract; Z66 Do not resuscitate; R09.02 Hypoxemia; Z79.891 Long term (current) use of opiate analgesic; I25.2 Old myocardial infarction
CPT/HCPCS: 36415; 36600; 51702; 71045; 71275; 80048; 80053; 82803; 83735; 83880; 84145; 85025; 86140; 86403; 87040; 87086; 87449; 93005; 93306; 94760; 96365; 96367; 96372; 96375; 99285; J0456; J0696; J1644; J1650; J1940; J1956; J2919; J7050

== ENCOUNTER 2025-01-07 19:17 | Outpatient (CLI) | payer MEDICARE, OTHER, SELFPAY ==
[2025-01-07 19:39] LABS: Bacteria Urine 1+ /hpf; Hyaline Casts Urine 3.71 /lpf; Squamous Epithelial Cell Urine 0-5 /hpf (0-5); WBC Urine 0-5 /hpf (0-5)
[2025-01-07 19:42] LABS: Add Urine Microscopic? YES; Bilirubin Urine Neg (Negative); Blood Urine 2+ (Negative); Glucose Urine UA Norm (Normal); Ketones Urine Negative (Negative); Leukocyte Esterase Urine Negative (Negative); Nitrate Urine Negative (Negative); Protein Urine Neg (Negative); Specific Gravity, Urine 1.015 (1.005-1.030); Urine Appearance Clear (CLEAR); Urine Color Yellow (Yellow); Urobilinogen Urine Norm (Negative); pH Urine 6.5 (5-7)
== END 2025-01-07 19:18 | disposition home or self-care (01) ==
LOC: LAB 19:22
PROVIDERS: PCP Family Medicine; Visit Provider Family Medicine
DX: N39.0 Urinary tract infection, site not specified (principal)
CPT/HCPCS: 81001; 87086